=== PATIENT | male | born 1975 | race African-American/Black ===

== ENCOUNTER 2020-12-17 03:37 | Inpatient (IN) ==
[2020-12-17 05:29] LABS: ABG Base Excess 0.9 MMOL/L (-2.5-2.5); ABG HCO3 25.1 MMOL/L (20-26); ABG Oxygen Saturation 91.6 % (95-100); ABG PCO2 40.3 MM HG (35-48); ABG PO2 63.1 MM HG (80-95); ABG TCO2 23.3 MMOL/L (23-27)
[2020-12-17] MEDS ORDERED: DEXTROSE 50% 25 GM/50 ML VIAL IV PRN ×2 (05:39)
[2020-12-17] MEDS ORDERED: SODIUM BICARB INJ 100 MEQ in STERILE WATER INJ 400 ML IV PRN (06:00)
[2020-12-17] MEDS ORDERED: MAGNESIUM SULF RIDER 4 GM/100 ML PREMIX IV PRN (06:00)
[2020-12-17] MEDS ORDERED: POTASSIUM CHLORIDE RIDER 10 MEQ/100 ML PREMIX IV PRN (06:00)
[2020-12-17] MEDS ORDERED: SODIUM PHOSPHATE INJ 19.3 MMOL in SODIUM CHLORIDE 0.9% 250 ML IV PRN (06:00)
[2020-12-17] MEDS ORDERED: MAGNESIUM SULF RIDER 2 GM/50 ML PREMIX IV PRN (06:00)
[2020-12-17 06:40] LABS: Basophils % 0.1 % (0.0-0.8); Hematocrit 29.4 VOL% (42.0-52.0); Hemoglobin 9.4 GM/DL (14.0-18.0); Immature Granulocytes % 1.1 %; Immature Granulocytes Absolute 0.13 #; Lymphocytes # 0.5 10*3/uL (1.4-4.0); Mean Corpuscular Volume 90.7 FL (87-102); Mean Platelet Volume 10.2 FL (9.6-12.0); Monocytes % 3.9 % (1.7-12.7); Neutrophils % 90.9 % (38.7-73.9); Platelet Count 448 T/CUMM (130-400); Red Blood Count 3.24 MC/CUMM (3.8-5.5); Red Cell Distribution Width 13.4 % (9.3-17.3); White Blood Count 12.1 T/CUMM (4-12)
[2020-12-17 06:48] LABS: Bilirubin,Urine Negative (Negative); Blood, Urine Negative (Negative); Glucose,Urine (UA) >=500 mg/dL (Negative); Ketones,Urine 5 mg/dL (Negative); Mucus,Urine Occasional /LPF (Occasional); Nitrite,Urine Negative (Negative); Protein,Urine 100 MG/DL; RBC,Urine 1 /HPF (0-4); Squamous Epithelial Cell,Urine Occasional /HPF (0-10); Urine Appearance CLEAR (Clear); Urine Color Straw (Yellow); Urine Urobilinogen < 2.0 EU/DL (0.2-1.0)
[2020-12-17 06:53] LABS: Albumin 1.8 G/DL (3.4-5.0); Bilirubin,Total 0.7 MG/DL (0.20-1.00); Calcium 8.7 MG/DL (8.5-10.1); Osmolality,Calculated 302.5 MOS/KG (273-304); Potassium 4.2 MMOL/L (3.5-5.1); Total Protein 7.5 G/DL (6.4-8.2)
[2020-12-17 06:55] LABS: Barbiturates Screen,Urine Negative (Negative); Benzodiazepines Screen,Urine Negative (Negative); Cannabinoid Screen,Urine Negative (Negative); Opiate Screen,Urine Negative (Negative); Phencyclidine Screen,Urine Negative (Negative)
[2020-12-17 07:03] LABS: Band Neutrophils 15 % (0-10); Hypochromia Slight; Lymphocytes 8 % (20-55); Platelet Estimate Increased; Segmented Neutrophils 75 % (50-85); Total Cells Counted 100
[2020-12-17] MEDS ORDERED: LORazepam 2 MG/1 ML VIAL ONE (07:19)
[2020-12-17] MEDS ORDERED: LORazepam 2 MG/1 ML VIAL IV ONE (07:20)
[2020-12-17] MEDS: PIPERACILLIN/TAZOBACTAM 3.375 MG in SODIUM CHLORIDE 0.9% 100 ML IV SCH ×2 (08:00→18:03)
[2020-12-17] MEDS: SODIUM CHLORIDE 0.9% 1,000 ML IV SCH ×2 (08:09→09:10)
[2020-12-17] MEDS: HEPARIN 5,000 UNIT/1 ML VIAL SUBCUT SCH ×3 (08:09→21:47)
[2020-12-17] MEDS: INSULIN REGULAR DRIP 100 ML IV SCH (08:20)
[2020-12-17] MEDS ORDERED: LOSARTAN 50 MG TABLET PO SCH (09:00)
[2020-12-17 09:47] LABS: Calcium 9.3 MG/DL (8.5-10.1); Osmolality,Calculated 294.8 MOS/KG (273-304); Potassium 4.1 MMOL/L (3.5-5.1)
[2020-12-17] MEDS: DIVALPROEX 250 MG TABLET PO SCH ×2 (10:24→20:41)
[2020-12-17] MEDS: amLODIPine 10 MG TABLET PO SCH (10:24)
[2020-12-17] MEDS ORDERED: SODIUM CHLORIDE 0.9% 1,000 ML IV SCH (11:00)
[2020-12-17] MEDS: hydrALAZINE 20 MG/1 ML VIAL IV PRN ×2 (12:12→20:42)
[2020-12-17] MEDS ORDERED: SODIUM CHLOR 0.9% KCL 20 MEQ 20 MEQ/1,000 ML BAG IV SCH (14:00)
[2020-12-17 14:17] LABS: Calcium 8.7 MG/DL (8.5-10.1); Potassium 4.5 MMOL/L (3.5-5.1)
[2020-12-17 18:15] LABS: Calcium 8.6 MG/DL (8.5-10.1); Osmolality,Calculated 298.5 MOS/KG (273-304); Potassium 4.6 MMOL/L (3.5-5.1)
[2020-12-17] MEDS: SODIUM CHLOR 0.45% KCL 20 MEQ 20 MEQ/1,000 ML BAG IV SCH (18:30)
[2020-12-17] MEDS: SIMVASTATIN 10 MG TABLET PO SCH (20:41)
[2020-12-17] MEDS: ONDANSETRON 4 MG/2 ML VIAL IV PRN (20:41)
[2020-12-17] MEDS: DEXT 5% NACL 0.45% KCL 20 MEQ 20 MEQ/1,000 ML BAG IV SCH (20:41)
[2020-12-18 00:34] LABS: Calcium 8.7 MG/DL (8.5-10.1); Osmolality,Calculated 292.4 MOS/KG (273-304); Potassium 4.5 MMOL/L (3.5-5.1)
[2020-12-18 01:51] LABS: Calcium 8.8 MG/DL (8.5-10.1); Osmolality,Calculated 290.1 MOS/KG (273-304); Potassium 4.3 MMOL/L (3.5-5.1)
[2020-12-18] MEDS: SODIUM CHLOR 0.45% KCL 20 MEQ 20 MEQ/1,000 ML BAG IV SCH ×4 (02:52→11:33)
[2020-12-18] MEDS: DEXT 5% NACL 0.45% KCL 20 MEQ 20 MEQ/1,000 ML BAG IV SCH ×3 (02:53→11:32)
[2020-12-18] MEDS: SODIUM CHLORIDE 0.45% 1,000 ML IV SCH ×2 (02:53→07:14)
[2020-12-18] MEDS: INSULIN REGULAR DRIP 100 ML IV SCH ×2 (03:00→07:03)
[2020-12-18] MEDS: PIPERACILLIN/TAZOBACTAM 3.375 MG in SODIUM CHLORIDE 0.9% 100 ML IV SCH ×4 (03:01→23:37)
[2020-12-18 04:45] LABS: Basophils % 0.1 % (0.0-0.8); Hematocrit 26.5 VOL% (42.0-52.0); Hemoglobin 8.3 GM/DL (14.0-18.0); Immature Granulocytes % 1.4 %; Immature Granulocytes Absolute 0.17 #; Lymphocytes # 1.1 10*3/uL (1.4-4.0); Lymphocytes % 8.3 % (21.2-54.2); Mean Corpuscular HGB Conc 31.3 GM/DL (32-36); Mean Corpuscular Volume 92.3 FL (87-102); Mean Platelet Volume 10.2 FL (9.6-12.0); Monocytes % 8.7 % (1.7-12.7); Neutrophils % 81.5 % (38.7-73.9); Platelet Count 345 T/CUMM (130-400); Red Blood Count 2.87 MC/CUMM (3.8-5.5); Red Cell Distribution Width 13.9 % (9.3-17.3); White Blood Count 12.6 T/CUMM (4-12)
[2020-12-18 05:09] LABS: Albumin 1.4 G/DL (3.4-5.0); Bilirubin,Total 0.4 MG/DL (0.20-1.00); Calcium 8.8 MG/DL (8.5-10.1); Osmolality,Calculated 290.1 MOS/KG (273-304); Potassium 4.3 MMOL/L (3.5-5.1); Total Protein 6.6 G/DL (6.4-8.2)
[2020-12-18 05:13] LABS: Alanine Aminotransferase 13 U/L (16-61); Albumin 1.4 G/DL (3.4-5.0); Alkaline Phosphatase 73 U/L (45-117); Aspartate Amino Transferase 13 U/L (0-37); Bilirubin,Direct < 0.100 MG/DL (0.0-0.20); Bilirubin,Indirect 0.3 MG/DL (0.0-1.0); Bilirubin,Total < 0.39 MG/DL (0.20-1.00); Blood Urea Nitrogen 28 MG/DL (7-18); Calcium 8.6 MG/DL (8.5-10.1); Carbon Dioxide 27 MMOL/L (21-32); Estimated Glom Filtration Rate 28 ML/MIN; Glucose 151 MG/DL (74-106); Osmolality,Calculated 294.8 MOS/KG (273-304); Potassium 4.4 MMOL/L (3.5-5.1); Sodium 144 MMOL/L (136-145); Total Protein 6.6 G/DL (6.4-8.2)
[2020-12-18 06:34] LABS: Eosinophils 1 % (0-10); Lymphocytes 4 % (20-55); Platelet Estimate Increased; Segmented Neutrophils 91 % (50-85); Total Cells Counted 100
[2020-12-18] MEDS: HEPARIN 5,000 UNIT/1 ML VIAL SUBCUT SCH ×3 (07:05→22:50)
[2020-12-18 07:44] LABS: Calcium 8.9 MG/DL (8.5-10.1); Osmolality,Calculated 292.3 MOS/KG (273-304); Potassium 4.4 MMOL/L (3.5-5.1)
[2020-12-18] MEDS: DIVALPROEX 250 MG TABLET PO SCH ×2 (08:31→20:53)
[2020-12-18] MEDS: amLODIPine 10 MG TABLET PO SCH (08:31)
[2020-12-18] MEDS ORDERED: DEXTROSE 50% 25 GM/50 ML VIAL IV PRN (10:01)
[2020-12-18] MEDS ORDERED: GLUCAGON 1 MG VIAL IM PRN ×2 (10:01)
[2020-12-18 10:30] LABS: Basophils % 0.1 % (0.0-0.8); Hematocrit 26.5 VOL% (42.0-52.0); Hemoglobin 8.3 GM/DL (14.0-18.0); Immature Granulocytes % 1.4 %; Immature Granulocytes Absolute 0.17 #; Lymphocytes # 1.1 10*3/uL (1.4-4.0); Lymphocytes % 8.3 % (21.2-54.2); Mean Corpuscular HGB Conc 31.3 GM/DL (32-36); Mean Corpuscular Volume 92.3 FL (87-102); Mean Platelet Volume 10.2 FL (9.6-12.0); Monocytes % 8.7 % (1.7-12.7); Neutrophils % 81.5 % (38.7-73.9); Platelet Count 345 T/CUMM (130-400); Red Blood Count 2.87 MC/CUMM (3.8-5.5); Red Cell Distribution Width 13.9 % (9.3-17.3); White Blood Count 12.6 T/CUMM (4-12)
[2020-12-18] MEDS ORDERED: ALBUTEROL/IPRATROPIUM 3 ML NEB RESP TX SCH (10:30)
[2020-12-18 10:47] LABS: Eosinophils 1 % (0-10); Lymphocytes 4 % (20-55); Platelet Estimate Increased; Segmented Neutrophils 91 % (50-85); Total Cells Counted 100
[2020-12-18] MEDS: INSULIN GLARGINE 100 UNIT/ML SUBCUT SCH ×2 (11:02→20:52)
[2020-12-18] MEDS: INSULIN LISPRO 100 UNIT/ML SUBCUT SCH ×4 (11:31→23:38)
[2020-12-18] MEDS: SODIUM CHLORIDE 0.9% 1,000 ML IV SCH ×3 (11:40→23:03)
[2020-12-18 11:45] LABS: Sedimentation Rate-Westergren 125 MM/HR (0-15)
[2020-12-18 11:47] LABS: % Iron Saturation 9.6 % (18-50); Ferritin 422.9 ng/mL (26-388)
[2020-12-18 12:15] LABS: Folate 7.98 NG/ML (5.38-24.0); Vitamin B12 1119 PG/ML (211-911)
[2020-12-18] MEDS: ALBUTEROL/IPRATROPIUM 3 ML NEB RESP TX SCH (12:37)
[2020-12-18] MEDS ORDERED: ETOMIDATE 20 MG/10 ML VIAL IV ONE ×3 (13:23→13:35)
[2020-12-18] MEDS ORDERED: ROCURONIUM 100 MG/10 ML VIAL IV ONE ×3 (13:24→13:36)
[2020-12-18] MEDS ORDERED: ETOMIDATE 20 MG/10 ML VIAL IV STA (13:30)
[2020-12-18] MEDS ORDERED: ROCURONIUM 100 MG/10 ML VIAL IV STA (13:31)
[2020-12-18] MEDS: AZITHROMYCIN INJ 500 MG in SODIUM CHLORIDE 0.9% 250 ML IV SCH (14:44)
[2020-12-18] MEDS: ACETYLCYSTEINE 20% 800 MG/4 ML VIAL RESP TX SCH (16:07)
[2020-12-18] MEDS: ALBUTEROL 2.5 MG/3 ML NEB RESP TX PRN (16:07)
[2020-12-18 17:28] LABS: ABG Base Excess -3.8 MMOL/L (-2.5-2.5); ABG HCO3 21.2 MMOL/L (20-26); ABG Oxygen Saturation 97.4 % (95-100); ABG PCO2 39.9 MM HG (35-48); ABG PH 7.341 (7.35-7.45); ABG PO2 99.7 MM HG (80-95); ABG TCO2 20.2 MMOL/L (23-27)
[2020-12-18] MEDS: VANCOMYCIN INJ 1,250 MG in SODIUM CHLORIDE 0.9% 250 ML IV SCH (18:23)
[2020-12-18] MEDS: SIMVASTATIN 10 MG TABLET PO SCH (20:53)
[2020-12-19] MEDS: ALBUTEROL/IPRATROPIUM 3 ML NEB RESP TX SCH ×5 (00:10→19:00)
[2020-12-19] MEDS: ACETYLCYSTEINE 20% 800 MG/4 ML VIAL RESP TX SCH ×4 (00:10→22:12)
[2020-12-19 03:40] LABS: Basophils % 0.2 % (0.0-0.8); Eosinophils % 0.2 % (0.00-10.9); Hemoglobin 7.4 GM/DL (14.0-18.0); Immature Granulocytes % 0.6 %; Immature Granulocytes Absolute 0.05 #; Lymphocytes % 11.9 % (21.2-54.2); Mean Corpuscular HGB Conc 30.8 GM/DL (32-36); Mean Corpuscular Volume 93.8 FL (87-102); Mean Platelet Volume 10.2 FL (9.6-12.0); Monocytes % 6.6 % (1.7-12.7); NRBC # 0.02 10*3/uL; Neutrophils % 80.5 % (38.7-73.9); Platelet Count 270 T/CUMM (130-400); Red Blood Count 2.56 MC/CUMM (3.8-5.5); Red Cell Distribution Width 14.5 % (9.3-17.3); White Blood Count 8.7 T/CUMM (4-12)
[2020-12-19 03:51] LABS: ABG Base Excess -1.4 MMOL/L (-2.5-2.5); ABG HCO3 22.9 MMOL/L (20-26); ABG Oxygen Saturation 98.1 % (95-100); ABG PCO2 36.3 MM HG (35-48); ABG PH 7.418 (7.35-7.45); ABG PO2 114.5 MM HG (80-95)
[2020-12-19 03:57] LABS: Alanine Aminotransferase 16 U/L (16-61); Albumin 1.2 G/DL (3.4-5.0); Alkaline Phosphatase 91 U/L (45-117); Aspartate Amino Transferase 19 U/L (0-37); Bilirubin,Total < 0.39 MG/DL (0.20-1.00); Blood Urea Nitrogen 40 MG/DL (7-18); Calcium 8.3 MG/DL (8.5-10.1); Carbon Dioxide 25 MMOL/L (21-32); Estimated Glom Filtration Rate 25 ML/MIN; Glucose 241 MG/DL (74-106); Osmolality,Calculated 305.7 MOS/KG (273-304); Potassium 4.6 MMOL/L (3.5-5.1); Sodium 145 MMOL/L (136-145); Total Protein 6.4 G/DL (6.4-8.2)
[2020-12-19 04:04] LABS: Band Neutrophils 2 % (0-10); Lymphocytes 12 % (20-55); Platelet Estimate Normal; Segmented Neutrophils 82 % (50-85); Total Cells Counted 100
[2020-12-19 04:05] LABS: Microcytosis Slight; Polychromasia Slight
[2020-12-19 04:06] LABS: Hypochromia Slight; Ovalocytes Slight
[2020-12-19] MEDS: HEPARIN 5,000 UNIT/1 ML VIAL SUBCUT SCH ×3 (05:47→22:35)
[2020-12-19] MEDS: SODIUM CHLORIDE 0.9% 1,000 ML IV SCH ×4 (06:27→22:35)
[2020-12-19] MEDS: PIPERACILLIN/TAZOBACTAM 3.375 MG in SODIUM CHLORIDE 0.9% 100 ML IV SCH ×2 (06:30→16:13)
[2020-12-19] MEDS ORDERED: INSULIN LISPRO 100 UNIT/ML SUBCUT SCH (07:00)
[2020-12-19] MEDS: INSULIN GLARGINE 100 UNIT/ML SUBCUT SCH ×2 (08:30→20:59)
[2020-12-19] MEDS: INSULIN LISPRO 100 UNIT/ML SUBCUT SCH ×4 (08:30→20:56)
[2020-12-19] MEDS: DIVALPROEX 250 MG TABLET PO SCH ×2 (08:30→20:58)
[2020-12-19] MEDS: amLODIPine 10 MG TABLET PO SCH (08:30)
[2020-12-19 11:42] LABS: % Iron Saturation 14.1 % (18-50)
[2020-12-19] MEDS: AZITHROMYCIN INJ 500 MG in SODIUM CHLORIDE 0.9% 250 ML IV SCH (15:33)
[2020-12-19] MEDS: ONDANSETRON 4 MG/2 ML VIAL IV PRN (20:58)
[2020-12-19] MEDS: SIMVASTATIN 10 MG TABLET PO SCH (20:59)
[2020-12-20] MEDS: PIPERACILLIN/TAZOBACTAM 3.375 MG in SODIUM CHLORIDE 0.9% 100 ML IV SCH ×3 (00:05→16:22)
[2020-12-20] MEDS: INSULIN LISPRO 100 UNIT/ML SUBCUT SCH ×6 (00:28→20:31)
[2020-12-20] MEDS: ALBUTEROL/IPRATROPIUM 3 ML NEB RESP TX SCH ×4 (01:00→19:00)
[2020-12-20 03:40] LABS: ABG Base Excess -1.7 MMOL/L (-2.5-2.5); ABG HCO3 23.2 MMOL/L (20-26); ABG PCO2 39.6 MM HG (35-48); ABG PH 7.385 (7.35-7.45); ABG PO2 111.2 MM HG (80-95); ABG TCO2 24.4 MMOL/L (23-27)
[2020-12-20] MEDS: DOCUSATE SODIUM 100 MG CAPSULE PO PRN ×2 (03:48→05:05)
[2020-12-20] MEDS: VANCOMYCIN INJ 1,250 MG in SODIUM CHLORIDE 0.9% 250 ML IV SCH (04:10)
[2020-12-20 04:18] LABS: Alanine Aminotransferase 21 U/L (16-61); Alkaline Phosphatase 71 U/L (45-117); Aspartate Amino Transferase 37 U/L (0-37); Bilirubin,Direct < 0.050 MG/DL (0.0-0.20); Bilirubin,Indirect 0.3 MG/DL (0.0-1.0); Bilirubin,Total < 0.39 MG/DL (0.20-1.00); Blood Urea Nitrogen 35 MG/DL (7-18); Calcium 8.2 MG/DL (8.5-10.1); Carbon Dioxide 25 MMOL/L (21-32); Estimated Glom Filtration Rate 30 ML/MIN; Glucose 121 MG/DL (74-106); Osmolality,Calculated 296.7 MOS/KG (273-304); Sodium 145 MMOL/L (136-145); Total Protein 6.1 G/DL (6.4-8.2)
[2020-12-20 04:38] LABS: ABG Base Excess -3.3 MMOL/L (-2.5-2.5); ABG HCO3 22.8 MMOL/L (20-26); ABG Oxygen Saturation 92.4 % (95-100); ABG PCO2 46.2 MM HG (35-48); ABG PH 7.311 (7.35-7.45); ABG PO2 67.6 MM HG (80-95); ABG TCO2 24.2 MMOL/L (23-27)
[2020-12-20] MEDS: SODIUM CHLORIDE 0.9% 1,000 ML IV SCH ×3 (05:46→20:59)
[2020-12-20] MEDS: HEPARIN 5,000 UNIT/1 ML VIAL SUBCUT SCH ×3 (05:51→22:07)
[2020-12-20] MEDS: ACETYLCYSTEINE 20% 800 MG/4 ML VIAL RESP TX SCH ×3 (07:28→23:34)
[2020-12-20] MEDS: PANTOPRAZOLE 40 MG VIAL IV SCH (09:01)
[2020-12-20] MEDS: INSULIN GLARGINE 100 UNIT/ML SUBCUT SCH ×2 (09:02→20:59)
[2020-12-20] MEDS: DIVALPROEX 250 MG TABLET PO SCH ×2 (09:03→20:58)
[2020-12-20] MEDS: amLODIPine 10 MG TABLET PO SCH (09:03)
[2020-12-20 09:51] LABS: Hemoglobin A1 (Alkaline) 98.1 % (96.5-98.5); Hemoglobin A2 (Alkaline) 1.9 % (1.5-3.5)
[2020-12-20] MEDS: AZITHROMYCIN INJ 500 MG in SODIUM CHLORIDE 0.9% 250 ML IV SCH (16:22)
[2020-12-20] MEDS: ALBUTEROL 2.5 MG/3 ML NEB RESP TX PRN (16:30)
[2020-12-20] MEDS: SIMVASTATIN 10 MG TABLET PO SCH (20:59)
[2020-12-21] MEDS: PIPERACILLIN/TAZOBACTAM 3.375 MG in SODIUM CHLORIDE 0.9% 100 ML IV SCH ×3 (00:14→22:41)
[2020-12-21] MEDS: INSULIN LISPRO 100 UNIT/ML SUBCUT SCH ×6 (00:34→21:47)
[2020-12-21] MEDS: ALBUTEROL/IPRATROPIUM 3 ML NEB RESP TX SCH ×4 (01:00→18:18)
[2020-12-21] MEDS ORDERED: fentaNYL 100 MCG/2 ML VIAL IV ONE (03:19)
[2020-12-21 03:43] LABS: ABG Base Excess -4.6 MMOL/L (-2.5-2.5); ABG HCO3 20.5 MMOL/L (20-26); ABG Oxygen Saturation 91.7 % (95-100); ABG PCO2 36.4 MM HG (35-48); ABG PH 7.357 (7.35-7.45); ABG PO2 65.1 MM HG (80-95); ABG TCO2 19.4 MMOL/L (23-27)
[2020-12-21 04:58] LABS: Basophils % 0.2 % (0.0-0.8); Eosinophils % 0.5 % (0.00-10.9); Hematocrit 19.7 VOL% (42.0-52.0); Immature Granulocytes % 5.5 %; Immature Granulocytes Absolute 0.31 #; Lymphocytes # 0.8 10*3/uL (1.4-4.0); Mean Corpuscular HGB Conc 31.5 GM/DL (32-36); Mean Corpuscular Volume 94.7 FL (87-102); Monocytes % 5.5 % (1.7-12.7); NRBC # 0.03 10*3/uL; Neutrophils % 73.3 % (38.7-73.9); Platelet Count 236 T/CUMM (130-400); Red Blood Count 2.08 MC/CUMM (3.8-5.5); Red Cell Distribution Width 14.8 % (9.3-17.3); White Blood Count 5.6 T/CUMM (4-12)
[2020-12-21 05:00] LABS: Hemoglobin 6.2 GM/DL (14.0-18.0)
[2020-12-21 05:07] LABS: Calcium 7.7 MG/DL (8.5-10.1); Osmolality,Calculated 310.1 MOS/KG (273-304); Potassium 3.6 MMOL/L (3.5-5.1)
[2020-12-21 05:29] LABS: Atypical Lymphocytes Few; Band Neutrophils 6 % (0-10); Hypochromia 1+; Lymphocytes 15 % (20-55); Metamyelocytes 1 %; Myelocytes 2 %; Nucleated Red Blood Cells 1 (0-5); Segmented Neutrophils 66 % (50-85); Total Cells Counted 100
[2020-12-21 05:30] LABS: Microcytosis 1+
[2020-12-21] MEDS: SODIUM CHLORIDE 0.9% 1,000 ML IV SCH ×3 (06:28→20:33)
[2020-12-21] MEDS: ACETYLCYSTEINE 20% 800 MG/4 ML VIAL RESP TX SCH ×3 (07:53→23:00)
[2020-12-21] MEDS: INSULIN GLARGINE 100 UNIT/ML SUBCUT SCH ×2 (08:13→21:47)
[2020-12-21] MEDS: PANTOPRAZOLE 40 MG VIAL IV SCH (08:14)
[2020-12-21] MEDS: fentaNYL INJ 1,250 MCG in SODIUM CHLORIDE 0.9% 225 ML IV PRN (08:30)
[2020-12-21] MEDS ORDERED: ROCURONIUM 50 MG/5 ML VIAL IV ONE ×2 (09:57→11:52)
[2020-12-21] MEDS ORDERED: SEVOFLURANE 1 UNIT/15 MINUTE INH ONE (09:57)
[2020-12-21] MEDS ORDERED: LIDOCAINE 2% 5 ML VIAL ONE (09:57)
[2020-12-21] MEDS ORDERED: propofoL 200 MG/20 ML VIAL IV ONE (09:57)
[2020-12-21] MEDS ORDERED: fentaNYL 250 MCG/5 ML VIAL ONE (09:58)
[2020-12-21] MEDS ORDERED: MIDAZOLAM 2 MG/2 ML VIAL ONE ×4 (09:58→11:53)
[2020-12-21] MEDS ORDERED: fentaNYL 100 MCG/2 ML VIAL ONE ×4 (10:21→11:53)
[2020-12-21] MEDS ORDERED: SODIUM CHLORIDE 0.9% 250 ML IV ONE (12:05)
[2020-12-21] MEDS: DIVALPROEX 250 MG TABLET PO SCH ×2 (13:47→21:47)
[2020-12-21 14:41] LABS: Hematocrit 29.3 VOL% (42.0-52.0); Hemoglobin 8.8 GM/DL (14.0-18.0)
[2020-12-21] MEDS: AZITHROMYCIN INJ 500 MG in SODIUM CHLORIDE 0.9% 250 ML IV SCH (14:53)
[2020-12-21] MEDS: VANCOMYCIN INJ 1,250 MG in SODIUM CHLORIDE 0.9% 250 ML IV SCH (16:49)
[2020-12-21] MEDS ORDERED: LORazepam 2 MG/1 ML VIAL ONE (19:30)
[2020-12-21] MEDS ORDERED: LORazepam 2 MG/1 ML VIAL IV ONE (21:43)
[2020-12-21] MEDS: SIMVASTATIN 10 MG TABLET PO SCH (21:47)
[2020-12-22] MEDS: INSULIN LISPRO 100 UNIT/ML SUBCUT SCH ×6 (00:19→21:07)
[2020-12-22] MEDS: ALBUTEROL/IPRATROPIUM 3 ML NEB RESP TX SCH ×4 (01:00→19:00)
[2020-12-22 03:58] LABS: ABG Base Excess -6.3 MMOL/L (-2.5-2.5); ABG HCO3 19.2 MMOL/L (20-26); ABG Oxygen Saturation 97.7 % (95-100); ABG PCO2 44.9 MM HG (35-48); ABG PH 7.266 (7.35-7.45); ABG TCO2 19.2 MMOL/L (23-27)
[2020-12-22 05:02] LABS: Basophils % 0.4 % (0.0-0.8); Eosinophils # 0.1 10*3/uL (0.0-0.87); Eosinophils % 1.1 % (0.00-10.9); Hematocrit 25.9 VOL% (42.0-52.0); Immature Granulocytes % 6.2 %; Immature Granulocytes Absolute 0.62 #; Lymphocytes % 9.6 % (21.2-54.2); Mean Corpuscular HGB Conc 30.9 GM/DL (32-36); Mean Corpuscular Volume 93.2 FL (87-102); Mean Platelet Volume 10.9 FL (9.6-12.0); Monocytes % 6.1 % (1.7-12.7); NRBC # 0.11 10*3/uL; Neutrophils % 76.6 % (38.7-73.9); Platelet Count 251 T/CUMM (130-400); Red Blood Count 2.78 MC/CUMM (3.8-5.5); Red Cell Distribution Width 16.7 % (9.3-17.3)
[2020-12-22] MEDS: SODIUM CHLORIDE 0.9% 1,000 ML IV SCH (05:04)
[2020-12-22 05:26] LABS: Band Neutrophils 11 % (0-10); Hypochromia Slight; Lymphocytes 3 % (20-55); Metamyelocytes 2 %; Microcytosis 1+; Nucleated Red Blood Cells 2 (0-5); Segmented Neutrophils 75 % (50-85); Total Cells Counted 100
[2020-12-22 05:27] LABS: Ovalocytes Slight
[2020-12-22 05:28] LABS: Calcium 7.1 MG/DL (8.5-10.1); Osmolality,Calculated 304.9 MOS/KG (273-304); Potassium 3.8 MMOL/L (3.5-5.1)
[2020-12-22] MEDS: PIPERACILLIN/TAZOBACTAM 3.375 MG in SODIUM CHLORIDE 0.9% 100 ML IV SCH (07:31)
[2020-12-22] MEDS: ACETYLCYSTEINE 20% 800 MG/4 ML VIAL RESP TX SCH ×3 (07:58→23:24)
[2020-12-22] MEDS: DIVALPROEX 250 MG TABLET PO SCH (08:29)
[2020-12-22] MEDS: PANTOPRAZOLE 40 MG VIAL IV SCH (08:29)
[2020-12-22] MEDS: INSULIN GLARGINE 100 UNIT/ML SUBCUT SCH ×2 (08:29→21:07)
[2020-12-22] MEDS: ALBUMIN 5% 25 GM/500 ML VIAL IV SCH ×2 (09:41→16:58)
[2020-12-22] MEDS: cefTRIAXone 1,000 MG in SODIUM CHLORIDE 0.9% 100 ML IV SCH (09:42)
[2020-12-22] MEDS: HEPARIN 5,000 UNIT/1 ML VIAL SUBCUT SCH ×2 (15:01→22:30)
[2020-12-22] MEDS: AZITHROMYCIN INJ 500 MG in SODIUM CHLORIDE 0.9% 250 ML IV SCH (15:01)
[2020-12-22] MEDS: FUROSEMIDE 40 MG/4 ML VIAL IV SCH (16:57)
[2020-12-22] MEDS: LEVOFLOXACIN INJ 750 MG/150 ML PREMIX IV SCH (17:10)
[2020-12-22] MEDS: fentaNYL INJ 1,250 MCG in SODIUM CHLORIDE 0.9% 225 ML IV PRN (18:13)
[2020-12-22] MEDS: VALPROIC ACID INJ 500 MG in SODIUM CHLORIDE 0.9% 100 ML IV SCH (18:20)
[2020-12-22] MEDS: SIMVASTATIN 10 MG TABLET PO SCH (21:07)
[2020-12-23] MEDS: INSULIN LISPRO 100 UNIT/ML SUBCUT SCH ×7 (00:07→23:13)
[2020-12-23] MEDS: VALPROIC ACID INJ 500 MG in SODIUM CHLORIDE 0.9% 100 ML IV SCH ×3 (00:08→16:14)
[2020-12-23] MEDS: ALBUMIN 5% 25 GM/500 ML VIAL IV SCH ×3 (00:08→16:12)
[2020-12-23] MEDS: ALBUTEROL/IPRATROPIUM 3 ML NEB RESP TX SCH ×4 (00:20→19:02)
[2020-12-23 04:01] LABS: ABG Base Excess -5.4 MMOL/L (-2.5-2.5); ABG HCO3 20.2 MMOL/L (20-26); ABG PH 7.322 (7.35-7.45); ABG PO2 172.5 MM HG (80-95); ABG TCO2 21.5 MMOL/L (23-27)
[2020-12-23 05:34] LABS: Basophils # 0.1 10*3/uL (0.0-0.2); Basophils % 0.5 % (0.0-0.8); Eosinophils # 0.1 10*3/uL (0.0-0.87); Hematocrit 23.7 VOL% (42.0-52.0); Hemoglobin 7.4 GM/DL (14.0-18.0); Immature Granulocytes % 12.1 %; Immature Granulocytes Absolute 1.42 #; Lymphocytes # 1.4 10*3/uL (1.4-4.0); Lymphocytes % 11.8 % (21.2-54.2); Mean Corpuscular HGB Conc 31.2 GM/DL (32-36); Mean Corpuscular Volume 93.3 FL (87-102); Mean Platelet Volume 10.5 FL (9.6-12.0); Neutrophils % 68.6 % (38.7-73.9); Platelet Count 260 T/CUMM (130-400); Red Blood Count 2.54 MC/CUMM (3.8-5.5); Red Cell Distribution Width 17.5 % (9.3-17.3); White Blood Count 11.7 T/CUMM (4-12)
[2020-12-23 05:47] LABS: Calcium 8.1 MG/DL (8.5-10.1); Osmolality,Calculated 311.7 MOS/KG (273-304); Potassium 3.6 MMOL/L (3.5-5.1)
[2020-12-23 06:05] LABS: Band Neutrophils 5 % (0-10); Eosinophils 1 % (0-10); Hypochromia 2+; Lymphocytes 20 % (20-55); Metamyelocytes 3 %; Myelocytes 1 %; Nucleated Red Blood Cells 2 (0-5); Platelet Estimate Normal; Segmented Neutrophils 63 % (50-85); Target Cells Few; Total Cells Counted 100
[2020-12-23 06:06] LABS: Microcytosis 2+
[2020-12-23] MEDS: HEPARIN 5,000 UNIT/1 ML VIAL SUBCUT SCH ×3 (06:17→22:17)
[2020-12-23] MEDS: ACETYLCYSTEINE 20% 800 MG/4 ML VIAL RESP TX SCH ×3 (08:27→23:00)
[2020-12-23] MEDS: INSULIN GLARGINE 100 UNIT/ML SUBCUT SCH ×2 (09:18→20:52)
[2020-12-23] MEDS: PANTOPRAZOLE 40 MG VIAL IV SCH (09:18)
[2020-12-23] MEDS: cefTRIAXone 1,000 MG in SODIUM CHLORIDE 0.9% 100 ML IV SCH (09:18)
[2020-12-23] MEDS: FUROSEMIDE 40 MG/4 ML VIAL IV SCH ×2 (09:50→16:12)
[2020-12-23] MEDS: DEXTROSE 50% 25 GM/50 ML VIAL IV PRN (19:30)
[2020-12-23] MEDS: SIMVASTATIN 10 MG TABLET PO SCH (20:53)
[2020-12-24] MEDS: ALBUMIN 5% 25 GM/500 ML VIAL IV SCH ×3 (00:30→15:42)
[2020-12-24] MEDS: VALPROIC ACID INJ 500 MG in SODIUM CHLORIDE 0.9% 100 ML IV SCH ×3 (01:00→16:08)
[2020-12-24] MEDS: ALBUTEROL/IPRATROPIUM 3 ML NEB RESP TX SCH ×4 (01:30→23:13)
[2020-12-24] MEDS: INSULIN LISPRO 100 UNIT/ML SUBCUT SCH ×5 (04:11→20:01)
[2020-12-24] MEDS: DEXTROSE 50% 25 GM/50 ML VIAL IV PRN (04:15)
[2020-12-24 04:33] LABS: Basophils % 0.2 % (0.0-0.8); Eosinophils # 0.3 10*3/uL (0.0-0.87); Hematocrit 23.7 VOL% (42.0-52.0); Hemoglobin 7.3 GM/DL (14.0-18.0); Immature Granulocytes % 10.2 %; Immature Granulocytes Absolute 1.35 #; Lymphocytes # 1.7 10*3/uL (1.4-4.0); Lymphocytes % 12.7 % (21.2-54.2); Mean Corpuscular HGB Conc 30.8 GM/DL (32-36); Mean Corpuscular Volume 92.6 FL (87-102); Mean Platelet Volume 10.5 FL (9.6-12.0); Monocytes % 3.2 % (1.7-12.7); NRBC # 0.09 10*3/uL; Neutrophils % 71.7 % (38.7-73.9); Platelet Count 276 T/CUMM (130-400); Red Blood Count 2.56 MC/CUMM (3.8-5.5); Red Cell Distribution Width 17.9 % (9.3-17.3); White Blood Count 13.3 T/CUMM (4-12)
[2020-12-24 04:35] LABS: ABG Base Excess -2.8 MMOL/L (-2.5-2.5); ABG Oxygen Saturation 96.9 % (95-100); ABG PCO2 44.8 MM HG (35-48); ABG PH 7.328 (7.35-7.45); ABG PO2 93.6 MM HG (80-95); ABG TCO2 24.4 MMOL/L (23-27)
[2020-12-24 04:50] LABS: Calcium 8.3 MG/DL (8.5-10.1); Osmolality,Calculated 313.3 MOS/KG (273-304); Potassium 3.6 MMOL/L (3.5-5.1)
[2020-12-24 05:02] LABS: Band Neutrophils 7 % (0-10); Eosinophils 2 % (0-10); Hypochromia 1+; Lymphocytes 17 % (20-55); Platelet Estimate Normal; Segmented Neutrophils 69 % (50-85); Total Cells Counted 100
[2020-12-24] MEDS: HEPARIN 5,000 UNIT/1 ML VIAL SUBCUT SCH ×3 (05:54→22:32)
[2020-12-24] MEDS: INSULIN GLARGINE 100 UNIT/ML SUBCUT SCH (09:35)
[2020-12-24] MEDS: DEXTROSE 5% 1,000 ML IV SCH (10:06)
[2020-12-24] MEDS: PANTOPRAZOLE 40 MG VIAL IV SCH (10:07)
[2020-12-24] MEDS: ACETYLCYSTEINE 20% 800 MG/4 ML VIAL RESP TX SCH (10:22)
[2020-12-24] MEDS: FUROSEMIDE 40 MG/4 ML VIAL IV SCH (10:22)
[2020-12-24] MEDS: cefTRIAXone 1,000 MG in SODIUM CHLORIDE 0.9% 100 ML IV SCH (11:16)
[2020-12-24] MEDS: ACETAMINOPHEN 325 MG TABLET PO PRN (12:12)
[2020-12-24] MEDS: LEVOFLOXACIN INJ 750 MG/150 ML PREMIX IV SCH (17:21)
[2020-12-24] MEDS: hydrALAZINE 20 MG/1 ML VIAL IV PRN (19:59)
[2020-12-24] MEDS: SIMVASTATIN 10 MG TABLET PO SCH (20:00)
[2020-12-25] MEDS: ALBUTEROL/IPRATROPIUM 3 ML NEB RESP TX SCH ×4 (01:00→19:00)
[2020-12-25] MEDS: INSULIN LISPRO 100 UNIT/ML SUBCUT SCH ×5 (01:30→17:26)
[2020-12-25] MEDS: VALPROIC ACID INJ 500 MG in SODIUM CHLORIDE 0.9% 100 ML IV SCH ×3 (01:30→17:26)
[2020-12-25 04:02] LABS: ABG Base Excess -3.3 MMOL/L (-2.5-2.5); ABG HCO3 21.6 MMOL/L (20-26); ABG Oxygen Saturation 96.1 % (95-100); ABG PH 7.408 (7.35-7.45); ABG PO2 77.3 MM HG (80-95); ABG TCO2 19.6 MMOL/L (23-27)
[2020-12-25 04:51] LABS: Basophils % 0.3 % (0.0-0.8); Eosinophils # 0.2 10*3/uL (0.0-0.87); Hematocrit 23.1 VOL% (42.0-52.0); Hemoglobin 7.6 GM/DL (14.0-18.0); Immature Granulocytes % 11.4 %; Lymphocytes # 1.5 10*3/uL (1.4-4.0); Lymphocytes % 9.4 % (21.2-54.2); Mean Corpuscular HGB Conc 32.9 GM/DL (32-36); Mean Corpuscular Volume 91.7 FL (87-102); Monocytes % 3.1 % (1.7-12.7); NRBC # 0.06 10*3/uL; Neutrophils % 74.8 % (38.7-73.9); Platelet Count 263 T/CUMM (130-400); Red Blood Count 2.52 MC/CUMM (3.8-5.5); Red Cell Distribution Width 17.6 % (9.3-17.3); White Blood Count 15.8 T/CUMM (4-12)
[2020-12-25 05:05] LABS: Calcium 7.8 MG/DL (8.5-10.1); Potassium 3.4 MMOL/L (3.5-5.1)
[2020-12-25 05:15] LABS: Band Neutrophils 8 % (0-10); Lymphocytes 6 % (20-55); Metamyelocytes 1 %; Myelocytes 2 %; Segmented Neutrophils 73 % (50-85); Total Cells Counted 100
[2020-12-25 05:16] LABS: Hypochromia 1+; Microcytosis 1+; Platelet Estimate Normal; Tear Drop Cells Slight
[2020-12-25] MEDS: HEPARIN 5,000 UNIT/1 ML VIAL SUBCUT SCH ×3 (06:25→21:39)
[2020-12-25] MEDS: DEXTROSE 5% 1,000 ML IV SCH (06:26)
[2020-12-25] MEDS: PANTOPRAZOLE 40 MG VIAL IV SCH (07:44)
[2020-12-25] MEDS: cefTRIAXone 1,000 MG in SODIUM CHLORIDE 0.9% 100 ML IV SCH (09:07)
[2020-12-25] MEDS: SODIUM CHLORIDE 0.45% 1,000 ML IV SCH (10:06)
[2020-12-25] MEDS: ALPRAZolam 0.5 MG TABLET PO SCH ×2 (10:06→17:27)
[2020-12-25] MEDS: POTASSIUM BICARB EFFERVESCENT 20 MEQ TAB.EFF PER TUBE PRN ×3 (10:06→14:22)
[2020-12-25] MEDS: metroNIDAZOLE INJ 500 MG/100 ML PREMIX IV SCH ×3 (11:03→21:39)
[2020-12-25] MEDS ORDERED: cefTRIAXone 1,000 MG in SODIUM CHLORIDE 0.9% 100 ML IV ONE (12:00)
[2020-12-25] MEDS: cefTRIAXone 2,000 MG in SODIUM CHLORIDE 0.9% 100 ML IV SCH (12:07)
[2020-12-25 17:00] LABS: Calcium 7.9 MG/DL (8.5-10.1); Potassium 3.9 MMOL/L (3.5-5.1)
[2020-12-25] MEDS: FERROUS SULFATE 300 MG/5 ML UDCUP PO SCH (20:56)
[2020-12-25] MEDS: SIMVASTATIN 10 MG TABLET PO SCH (20:56)
[2020-12-26] MEDS: VALPROIC ACID INJ 500 MG in SODIUM CHLORIDE 0.9% 100 ML IV SCH ×3 (00:23→17:07)
[2020-12-26] MEDS: INSULIN LISPRO 100 UNIT/ML SUBCUT SCH ×5 (00:23→23:57)
[2020-12-26] MEDS: ALBUTEROL/IPRATROPIUM 3 ML NEB RESP TX SCH ×4 (01:10→19:52)
[2020-12-26] MEDS: ALPRAZolam 0.5 MG TABLET PO SCH ×3 (02:52→17:20)
[2020-12-26] MEDS: SODIUM CHLORIDE 0.45% 1,000 ML IV SCH ×2 (02:53→13:59)
[2020-12-26 04:16] LABS: ABG Base Excess -1.7 MMOL/L (-2.5-2.5); ABG HCO3 22.9 MMOL/L (20-26); ABG Oxygen Saturation 95.2 % (95-100); ABG PCO2 34.3 MM HG (35-48); ABG PH 7.423 (7.35-7.45); ABG PO2 75.5 MM HG (80-95); ABG TCO2 21.2 MMOL/L (23-27)
[2020-12-26] MEDS: metroNIDAZOLE INJ 500 MG/100 ML PREMIX IV SCH ×4 (04:46→21:35)
[2020-12-26 05:01] LABS: Basophils % 0.2 % (0.0-0.8); Eosinophils # 0.1 10*3/uL (0.0-0.87); Eosinophils % 0.7 % (0.00-10.9); Hematocrit 22.2 VOL% (42.0-52.0); Hemoglobin 7.3 GM/DL (14.0-18.0); Immature Granulocytes % 13.7 %; Immature Granulocytes Absolute 2.33 #; Lymphocytes # 1.8 10*3/uL (1.4-4.0); Lymphocytes % 10.3 % (21.2-54.2); Mean Corpuscular HGB Conc 32.9 GM/DL (32-36); Mean Corpuscular Volume 89.9 FL (87-102); Mean Platelet Volume 10.9 FL (9.6-12.0); Monocytes % 3.7 % (1.7-12.7); NRBC # 0.07 10*3/uL; Neutrophils % 71.4 % (38.7-73.9); Platelet Count 251 T/CUMM (130-400); Red Blood Count 2.47 MC/CUMM (3.8-5.5); Red Cell Distribution Width 17.5 % (9.3-17.3)
[2020-12-26 05:14] LABS: Calcium 8.2 MG/DL (8.5-10.1); Osmolality,Calculated 311.1 MOS/KG (273-304); Potassium 3.6 MMOL/L (3.5-5.1)
[2020-12-26 06:20] LABS: Band Neutrophils 4 % (0-10); Eosinophils 1 % (0-10); Hypochromia 1+; Lymphocytes 3 % (20-55); Metamyelocytes 2 %; Microcytosis 1+; Myelocytes 2 %; Nucleated Red Blood Cells 1 (0-5); Segmented Neutrophils 82 % (50-85); Tear Drop Cells Few; Total Cells Counted 100
[2020-12-26] MEDS: HEPARIN 5,000 UNIT/1 ML VIAL SUBCUT SCH ×3 (06:30→21:35)
[2020-12-26] MEDS: PANTOPRAZOLE 40 MG VIAL IV SCH (08:06)
[2020-12-26] MEDS: POTASSIUM BICARB EFFERVESCENT 20 MEQ TAB.EFF PER TUBE PRN ×2 (08:07→10:20)
[2020-12-26] MEDS: FERROUS SULFATE 300 MG/5 ML UDCUP PO SCH (08:07)
[2020-12-26] MEDS: cefTRIAXone 2,000 MG in SODIUM CHLORIDE 0.9% 100 ML IV SCH (09:16)
[2020-12-26] MEDS ORDERED: SODIUM CHLORIDE 0.9% 1,000 ML IV PRN (12:08)
[2020-12-26] MEDS: methylPREDNISolone SOD SUC 40 MG/1 ML VIAL IV SCH ×2 (12:21→21:34)
[2020-12-26 17:09] LABS: Hematocrit 26.4 VOL% (42.0-52.0); Hemoglobin 8.6 GM/DL (14.0-18.0)
[2020-12-26] MEDS: SIMVASTATIN 10 MG TABLET PO SCH (21:57)
[2020-12-26] MEDS: ACETAMINOPHEN 325 MG TABLET PO PRN (23:57)
[2020-12-27] MEDS: VALPROIC ACID INJ 500 MG in SODIUM CHLORIDE 0.9% 100 ML IV SCH ×3 (00:08→16:28)
[2020-12-27] MEDS: SODIUM CHLORIDE 0.45% 1,000 ML IV SCH ×2 (00:10→07:28)
[2020-12-27] MEDS: ALPRAZolam 0.5 MG TABLET PO SCH ×3 (01:19→17:46)
[2020-12-27] MEDS: ALBUTEROL/IPRATROPIUM 3 ML NEB RESP TX SCH ×4 (01:20→20:15)
[2020-12-27] MEDS: HYDROmorphone 2 MG/1 ML VIAL IV PRN (02:19)
[2020-12-27] MEDS: fentaNYL INJ 1,250 MCG in SODIUM CHLORIDE 0.9% 225 ML IV PRN (02:25)
[2020-12-27 03:39] LABS: Basophils % 0.2 % (0.0-0.8); Eosinophils % 0.1 % (0.00-10.9); Hematocrit 25.4 VOL% (42.0-52.0); Immature Granulocytes % 12.4 %; Immature Granulocytes Absolute 2.06 #; Lymphocytes # 1.3 10*3/uL (1.4-4.0); Lymphocytes % 7.9 % (21.2-54.2); Mean Corpuscular HGB Conc 31.5 GM/DL (32-36); Mean Corpuscular Volume 93.4 FL (87-102); Mean Platelet Volume 10.8 FL (9.6-12.0); Monocytes % 3.4 % (1.7-12.7); NRBC # 0.08 10*3/uL; Platelet Count 232 T/CUMM (130-400); Red Blood Count 2.72 MC/CUMM (3.8-5.5); Red Cell Distribution Width 17.3 % (9.3-17.3); White Blood Count 16.6 T/CUMM (4-12)
[2020-12-27 03:50] LABS: Calcium 7.8 MG/DL (8.5-10.1); Osmolality,Calculated 312.7 MOS/KG (273-304); Potassium 4.8 MMOL/L (3.5-5.1)
[2020-12-27 04:07] LABS: Folate 9.16 NG/ML (5.38-24.0); Vitamin B12 837 PG/ML (211-911)
[2020-12-27] MEDS: methylPREDNISolone SOD SUC 40 MG/1 ML VIAL IV SCH ×3 (04:07→21:19)
[2020-12-27] MEDS: metroNIDAZOLE INJ 500 MG/100 ML PREMIX IV SCH ×4 (04:08→21:32)
[2020-12-27 04:09] LABS: Band Neutrophils 2 % (0-10); Hypochromia 1+; Lymphocytes 11 % (20-55); Microcytosis 1+; Platelet Estimate Adequate; Segmented Neutrophils 86 % (50-85); Total Cells Counted 100
[2020-12-27 04:53] LABS: Sedimentation Rate-Westergren 134 MM/HR (0-15)
[2020-12-27 04:54] LABS: Allen Test Positive; Pt O2 Delivery Device Ventilator
[2020-12-27 04:55] LABS: ABG Base Excess -5.7 MMOL/L (-2.5-2.5); ABG HCO3 19.6 MMOL/L (20-26); ABG PO2 74.8 MM HG (80-95); ABG TCO2 21.3 MMOL/L (23-27)
[2020-12-27] MEDS: INSULIN LISPRO 100 UNIT/ML SUBCUT SCH ×4 (06:13→23:51)
[2020-12-27] MEDS: HEPARIN 5,000 UNIT/1 ML VIAL SUBCUT SCH ×3 (06:14→21:32)
[2020-12-27] MEDS: PANTOPRAZOLE 40 MG VIAL IV SCH (08:22)
[2020-12-27] MEDS: cefTRIAXone 2,000 MG in SODIUM CHLORIDE 0.9% 100 ML IV SCH (09:32)
[2020-12-27] MEDS: INSULIN GLARGINE 100 UNIT/ML SUBCUT SCH (10:15)
[2020-12-27] MEDS: ACETAMINOPHEN 325 MG TABLET PO PRN (12:06)
[2020-12-27] MEDS: SIMVASTATIN 10 MG TABLET PO SCH (21:19)
[2020-12-28] MEDS: ALBUTEROL/IPRATROPIUM 3 ML NEB RESP TX SCH ×4 (01:00→18:45)
[2020-12-28] MEDS: VALPROIC ACID INJ 500 MG in SODIUM CHLORIDE 0.9% 100 ML IV SCH ×3 (01:45→16:35)
[2020-12-28] MEDS: ALPRAZolam 0.5 MG TABLET PO SCH ×3 (02:04→19:14)
[2020-12-28] MEDS: fentaNYL INJ 1,250 MCG in SODIUM CHLORIDE 0.9% 225 ML IV PRN (02:48)
[2020-12-28 04:38] LABS: ABG Base Excess -3.3 MMOL/L (-2.5-2.5); ABG HCO3 21.1 MMOL/L (20-26); ABG Oxygen Saturation 96.8 % (95-100); ABG PCO2 34.4 MM HG (35-48); ABG PH 7.405 (7.35-7.45); ABG PO2 89.9 MM HG (80-95); ABG TCO2 22.1 MMOL/L (23-27); Allen Test Positive; Pt O2 Delivery Device Ventilator
[2020-12-28 04:42] LABS: Basophils % 0.2 % (0.0-0.8); Eosinophils % 0.2 % (0.00-10.9); Hematocrit 22.1 VOL% (42.0-52.0); Hemoglobin 7.1 GM/DL (14.0-18.0); Immature Granulocytes % 8.1 %; Immature Granulocytes Absolute 1.47 #; Mean Corpuscular HGB Conc 32.1 GM/DL (32-36); Mean Corpuscular Volume 89.8 FL (87-102); Mean Platelet Volume 11.3 FL (9.6-12.0); Monocytes % 4.9 % (1.7-12.7); NRBC # 0.07 10*3/uL; Neutrophils % 75.6 % (38.7-73.9); Platelet Count 201 T/CUMM (130-400); Red Blood Count 2.46 MC/CUMM (3.8-5.5); Red Cell Distribution Width 16.8 % (9.3-17.3); White Blood Count 18.1 T/CUMM (4-12)
[2020-12-28 04:50] LABS: Bilirubin,Urine Negative (Negative); Blood, Urine Large mg/dL (Negative); Glucose,Urine (UA) 50 mg/dL (Negative); Ketones,Urine Negative (Negative); Nitrite,Urine Negative (Negative); Protein,Urine 100 MG/DL; RBC,Urine 317 /HPF (0-4); Squamous Epithelial Cell,Urine Occasional /HPF (0-10); Urine Appearance CLOUDY (Clear); Urine Color Yellow (Yellow); Urine Specific Gravity 1.013 (1.001-1.035); Urine Urobilinogen < 2.0 EU/DL (0.2-1.0)
[2020-12-28 05:04] LABS: Band Neutrophils 2 % (0-10); Hypochromia Slight; Lymphocytes 9 % (20-55); Nucleated Red Blood Cells 1 (0-5); Platelet Estimate Normal; Segmented Neutrophils 87 % (50-85); Total Cells Counted 100
[2020-12-28 05:05] LABS: Alanine Aminotransferase 11 U/L (16-61); Albumin 1.2 G/DL (3.4-5.0); Alkaline Phosphatase 78 U/L (45-117); Aspartate Amino Transferase 30 U/L (0-37); Bilirubin,Total < 0.39 MG/DL (0.20-1.00); Blood Urea Nitrogen 64 MG/DL (7-18); Carbon Dioxide 22 MMOL/L (21-32); Estimated Glom Filtration Rate 25 ML/MIN; Glucose 264 MG/DL (74-106); Osmolality,Calculated 316.6 MOS/KG (273-304); Potassium 4.3 MMOL/L (3.5-5.1); Sodium 146 MMOL/L (136-145); Total Protein 6.9 G/DL (6.4-8.2)
[2020-12-28 05:12] LABS: Uric Acid 5.9 MG/DL (3.5-7.2)
[2020-12-28] MEDS: metroNIDAZOLE INJ 500 MG/100 ML PREMIX IV SCH ×4 (05:29→22:57)
[2020-12-28] MEDS: methylPREDNISolone SOD SUC 40 MG/1 ML VIAL IV SCH ×3 (05:29→20:55)
[2020-12-28] MEDS: HEPARIN 5,000 UNIT/1 ML VIAL SUBCUT SCH ×3 (06:19→22:58)
[2020-12-28] MEDS: INSULIN LISPRO 100 UNIT/ML SUBCUT SCH ×3 (06:32→19:09)
[2020-12-28] MEDS: PANTOPRAZOLE 40 MG VIAL IV SCH (10:15)
[2020-12-28] MEDS: cefTRIAXone 2,000 MG in SODIUM CHLORIDE 0.9% 100 ML IV SCH (10:40)
[2020-12-28] MEDS ORDERED: SODIUM CHLORIDE 0.9% 1,000 ML IV PRN (10:53)
[2020-12-28] MEDS ORDERED: cefTRIAXone 2,000 MG in SODIUM CHLORIDE 0.9% 100 ML IV SCH (11:00)
[2020-12-28] MEDS: INSULIN GLARGINE 100 UNIT/ML SUBCUT SCH (11:38)
[2020-12-28] MEDS: ACETAMINOPHEN 325 MG TABLET PO PRN (11:42)
[2020-12-28] MEDS: SODIUM CHLORIDE 0.45% 1,000 ML IV SCH (12:29)
[2020-12-28] MEDS: ASPIRIN CHEW 81 MG TABLET PO SCH (14:27)
[2020-12-28] MEDS: hydrALAZINE 25 MG TABLET PO SCH ×2 (14:27→20:55)
[2020-12-28] MEDS: FLUCONAZOLE INJ 200 MG/100 ML PREMIX IV SCH (14:28)
[2020-12-28] MEDS: ATORVASTATIN 40 MG TABLET PO SCH (20:55)
[2020-12-29] MEDS: SODIUM CHLORIDE 0.45% 1,000 ML IV SCH
[2020-12-29] MEDS: ALBUTEROL/IPRATROPIUM 3 ML NEB RESP TX SCH ×4 (00:59→19:17)
[2020-12-29] MEDS: ALPRAZolam 0.5 MG TABLET PO SCH ×3 (01:41→17:12)
[2020-12-29] MEDS: VALPROIC ACID INJ 500 MG in SODIUM CHLORIDE 0.9% 100 ML IV SCH ×3 (01:41→17:01)
[2020-12-29] MEDS: hydrALAZINE 25 MG TABLET PO SCH ×3 (03:33→21:07)
[2020-12-29] MEDS: metroNIDAZOLE INJ 500 MG/100 ML PREMIX IV SCH (03:34)
[2020-12-29] MEDS: methylPREDNISolone SOD SUC 40 MG/1 ML VIAL IV SCH ×3 (03:34→21:37)
[2020-12-29 04:16] LABS: Basophils # 0.1 10*3/uL (0.0-0.2); Basophils % 0.4 % (0.0-0.8); Eosinophils % 0.1 % (0.00-10.9); Hematocrit 23.6 VOL% (42.0-52.0); Hemoglobin 7.5 GM/DL (14.0-18.0); Immature Granulocytes % 10.1 %; Immature Granulocytes Absolute 1.77 #; Lymphocytes # 1.9 10*3/uL (1.4-4.0); Lymphocytes % 10.8 % (21.2-54.2); Mean Corpuscular HGB Conc 31.8 GM/DL (32-36); Mean Corpuscular Volume 91.8 FL (87-102); Mean Platelet Volume 10.8 FL (9.6-12.0); Monocytes % 5.4 % (1.7-12.7); NRBC # 0.05 10*3/uL; Neutrophils % 73.2 % (38.7-73.9); Platelet Count 165 T/CUMM (130-400); Red Blood Count 2.57 MC/CUMM (3.8-5.5); Red Cell Distribution Width 16.7 % (9.3-17.3); White Blood Count 17.6 T/CUMM (4-12)
[2020-12-29 04:42] LABS: Band Neutrophils 2 % (0-10); Hypochromia 1+; Lymphocytes 5 % (20-55); Microcytosis 1+; Nucleated Red Blood Cells 1 (0-5); Platelet Estimate Adequate; Segmented Neutrophils 89 % (50-85); Total Cells Counted 100
[2020-12-29 04:44] LABS: Alanine Aminotransferase < 9 U/L (16-61); Albumin 1.1 G/DL (3.4-5.0); Alkaline Phosphatase 79 U/L (45-117); Aspartate Amino Transferase 21 U/L (0-37); Bilirubin,Total < 0.39 MG/DL (0.20-1.00); Blood Urea Nitrogen 72 MG/DL (7-18); Calcium 8.1 MG/DL (8.5-10.1); Carbon Dioxide 22 MMOL/L (21-32); Estimated Glom Filtration Rate 23 ML/MIN; Glucose 257 MG/DL (74-106); Osmolality,Calculated 315.8 MOS/KG (273-304); Potassium 4.3 MMOL/L (3.5-5.1); Sodium 144 MMOL/L (136-145); Total Protein 6.8 G/DL (6.4-8.2)
[2020-12-29 04:50] LABS: Risk Ratio 11.64; VLDL Cholesterol 92.6 MG/DL
[2020-12-29] MEDS: INSULIN LISPRO 100 UNIT/ML SUBCUT SCH ×4 (05:37→17:13)
[2020-12-29] MEDS: HEPARIN 5,000 UNIT/1 ML VIAL SUBCUT SCH ×3 (05:38→21:41)
[2020-12-29 06:01] LABS: ABG Base Excess -3.4 MMOL/L (-2.5-2.5); ABG HCO3 21.5 MMOL/L (20-26); ABG Oxygen Saturation 97.2 % (95-100); ABG PCO2 33.6 MM HG (35-48); ABG PH 7.399 (7.35-7.45); ABG PO2 91.7 MM HG (80-95); ABG TCO2 19.4 MMOL/L (23-27)
[2020-12-29] MEDS: PANTOPRAZOLE 40 MG VIAL IV SCH (08:58)
[2020-12-29] MEDS: INSULIN GLARGINE 100 UNIT/ML SUBCUT SCH (08:58)
[2020-12-29] MEDS: ASPIRIN CHEW 81 MG TABLET PO SCH (08:58)
[2020-12-29] MEDS: ERTAPENEM 500 MG in SODIUM CHLORIDE 0.9% 100 ML IV SCH (12:07)
[2020-12-29] MEDS: FLUCONAZOLE INJ 200 MG/100 ML PREMIX IV SCH (12:47)
[2020-12-29] MEDS: fentaNYL INJ 1,250 MCG in SODIUM CHLORIDE 0.9% 225 ML IV PRN (15:15)
[2020-12-29] MEDS: ATORVASTATIN 40 MG TABLET PO SCH (21:07)
[2020-12-30] MEDS: ALBUTEROL/IPRATROPIUM 3 ML NEB RESP TX SCH ×4 (00:02→19:15)
[2020-12-30] MEDS: INSULIN LISPRO 100 UNIT/ML SUBCUT SCH ×4 (00:28→19:12)
[2020-12-30] MEDS: VALPROIC ACID INJ 500 MG in SODIUM CHLORIDE 0.9% 100 ML IV SCH ×3 (00:29→16:27)
[2020-12-30] MEDS: hydrALAZINE 25 MG TABLET PO SCH ×4 (04:27→22:50)
[2020-12-30] MEDS: ALPRAZolam 0.5 MG TABLET PO SCH ×3 (04:27→18:24)
[2020-12-30] MEDS: fentaNYL INJ 1,250 MCG in SODIUM CHLORIDE 0.9% 225 ML IV PRN (04:30)
[2020-12-30 05:08] LABS: ABG Base Excess -3.8 MMOL/L (-2.5-2.5); ABG HCO3 21.2 MMOL/L (20-26); ABG Oxygen Saturation 98.4 % (95-100); ABG PCO2 43.5 MM HG (35-48); ABG PH 7.315 (7.35-7.45); ABG TCO2 20.9 MMOL/L (23-27)
[2020-12-30 05:51] LABS: Basophils % 0.2 % (0.0-0.8); Eosinophils % 0.1 % (0.00-10.9); Hematocrit 24.8 VOL% (42.0-52.0); Hemoglobin 7.6 GM/DL (14.0-18.0); Immature Granulocytes % 9.6 %; Lymphocytes % 12.1 % (21.2-54.2); Mean Corpuscular HGB Conc 30.6 GM/DL (32-36); Mean Corpuscular Volume 92.5 FL (87-102); Mean Platelet Volume 11.3 FL (9.6-12.0); Monocytes % 6.4 % (1.7-12.7); NRBC # 0.04 10*3/uL; Neutrophils % 71.6 % (38.7-73.9); Platelet Count 167 T/CUMM (130-400); Red Blood Count 2.68 MC/CUMM (3.8-5.5); Red Cell Distribution Width 16.5 % (9.3-17.3); White Blood Count 16.6 T/CUMM (4-12)
[2020-12-30 06:12] LABS: Band Neutrophils 2 % (0-10); Hypochromia 1+; Lymphocytes 12 % (20-55); Microcytosis 1+; Platelet Estimate Adequate; Segmented Neutrophils 80 % (50-85); Total Cells Counted 100
[2020-12-30 06:14] LABS: Calcium 8.3 MG/DL (8.5-10.1); Osmolality,Calculated 323.6 MOS/KG (273-304); Potassium 4.3 MMOL/L (3.5-5.1)
[2020-12-30] MEDS: HEPARIN 5,000 UNIT/1 ML VIAL SUBCUT SCH ×3 (06:35→22:50)
[2020-12-30] MEDS ORDERED: FUROSEMIDE 40 MG/4 ML VIAL IV ONE (07:50)
[2020-12-30] MEDS: INSULIN GLARGINE 100 UNIT/ML SUBCUT SCH (08:13)
[2020-12-30] MEDS: ASPIRIN CHEW 81 MG TABLET PO SCH (08:14)
[2020-12-30] MEDS: PANTOPRAZOLE 40 MG VIAL IV SCH (08:14)
[2020-12-30] MEDS: methylPREDNISolone SOD SUC 40 MG/1 ML VIAL IV SCH ×2 (10:49→22:50)
[2020-12-30] MEDS: ERTAPENEM 500 MG in SODIUM CHLORIDE 0.9% 100 ML IV SCH (11:38)
[2020-12-30] MEDS: FLUCONAZOLE INJ 200 MG/100 ML PREMIX IV SCH (13:02)
[2020-12-30] MEDS: ATORVASTATIN 40 MG TABLET PO SCH (22:50)
[2020-12-31] MEDS: ALBUTEROL/IPRATROPIUM 3 ML NEB RESP TX SCH ×5 (00:40→23:56)
[2020-12-31] MEDS: ALPRAZolam 0.5 MG TABLET PO SCH ×3 (02:07→17:46)
[2020-12-31] MEDS: INSULIN LISPRO 100 UNIT/ML SUBCUT SCH ×4 (02:07→21:18)
[2020-12-31] MEDS: VALPROIC ACID INJ 500 MG in SODIUM CHLORIDE 0.9% 100 ML IV SCH ×3 (02:07→17:46)
[2020-12-31] MEDS: hydrALAZINE 25 MG TABLET PO SCH ×3 (04:10→20:33)
[2020-12-31 05:49] LABS: Basophils % 0.2 % (0.0-0.8); Eosinophils % 0.1 % (0.00-10.9); Hemoglobin 8.7 GM/DL (14.0-18.0); Immature Granulocytes % 7.8 %; Immature Granulocytes Absolute 1.34 #; Lymphocytes # 1.4 10*3/uL (1.4-4.0); Lymphocytes % 7.9 % (21.2-54.2); Mean Corpuscular HGB Conc 31.1 GM/DL (32-36); Mean Corpuscular Volume 92.1 FL (87-102); NRBC # 0.06 10*3/uL; Platelet Count 187 T/CUMM (130-400); Red Blood Count 3.04 MC/CUMM (3.8-5.5); White Blood Count 17.1 T/CUMM (4-12)
[2020-12-31 06:00] LABS: Calcium 8.5 MG/DL (8.5-10.1); Osmolality,Calculated 324.6 MOS/KG (273-304)
[2020-12-31 06:07] LABS: Lymphocytes 9 % (20-55); Segmented Neutrophils 86 % (50-85); Total Cells Counted 100
[2020-12-31 06:08] LABS: Hypochromia 1+; Platelet Estimate Normal
[2020-12-31] MEDS: HEPARIN 5,000 UNIT/1 ML VIAL SUBCUT SCH ×3 (06:38→22:26)
[2020-12-31] MEDS: ASPIRIN CHEW 81 MG TABLET PO SCH (08:22)
[2020-12-31] MEDS: PANTOPRAZOLE 40 MG VIAL IV SCH (08:23)
[2020-12-31] MEDS: INSULIN GLARGINE 100 UNIT/ML SUBCUT SCH (08:23)
[2020-12-31] MEDS: methylPREDNISolone SOD SUC 40 MG/1 ML VIAL IV SCH ×2 (09:30→23:05)
[2020-12-31] MEDS: FLUCONAZOLE INJ 200 MG/100 ML PREMIX IV SCH (12:38)
[2020-12-31] MEDS: ERTAPENEM 500 MG in SODIUM CHLORIDE 0.9% 100 ML IV SCH (12:38)
[2020-12-31] MEDS: amLODIPine 10 MG TABLET PO SCH (12:45)
[2020-12-31] MEDS ORDERED: FUROSEMIDE 40 MG/4 ML VIAL IV SCH (16:00)
[2020-12-31] MEDS: hydrALAZINE 20 MG/1 ML VIAL IV PRN (18:04)
[2020-12-31] MEDS: ATORVASTATIN 40 MG TABLET PO SCH (20:33)
[2021-01-01] MEDS: VALPROIC ACID INJ 500 MG in SODIUM CHLORIDE 0.9% 100 ML IV SCH ×3 (02:48→17:57)
[2021-01-01] MEDS: ALPRAZolam 0.5 MG TABLET PO SCH ×3 (03:09→17:58)
[2021-01-01] MEDS: hydrALAZINE 25 MG TABLET PO SCH ×3 (04:58→21:59)
[2021-01-01 05:16] LABS: Basophils # 0.1 10*3/uL (0.0-0.2); Basophils % 0.3 % (0.0-0.8); Eosinophils % 0.1 % (0.00-10.9); Hematocrit 29.1 VOL% (42.0-52.0); Hemoglobin 9.1 GM/DL (14.0-18.0); Immature Granulocytes % 8.2 %; Immature Granulocytes Absolute 1.34 #; Lymphocytes # 1.2 10*3/uL (1.4-4.0); Lymphocytes % 7.3 % (21.2-54.2); Mean Corpuscular HGB Conc 31.3 GM/DL (32-36); Mean Corpuscular Volume 91.2 FL (87-102); Mean Platelet Volume 11.4 FL (9.6-12.0); Monocytes % 4.5 % (1.7-12.7); NRBC # 0.05 10*3/uL; Neutrophils % 79.6 % (38.7-73.9); Platelet Count 237 T/CUMM (130-400); Red Blood Count 3.19 MC/CUMM (3.8-5.5); Red Cell Distribution Width 15.7 % (9.3-17.3); White Blood Count 16.3 T/CUMM (4-12)
[2021-01-01 05:42] LABS: Alanine Aminotransferase 10 U/L (16-61); Albumin 1.3 G/DL (3.4-5.0); Alkaline Phosphatase 82 U/L (45-117); Aspartate Amino Transferase 22 U/L (0-37); Bilirubin,Total < 0.39 MG/DL (0.20-1.00); Blood Urea Nitrogen 77 MG/DL (7-18); Calcium 8.3 MG/DL (8.5-10.1); Carbon Dioxide 25 MMOL/L (21-32); Estimated Glom Filtration Rate 32 ML/MIN; Glucose 304 MG/DL (74-106); Osmolality,Calculated 327.3 MOS/KG (273-304); Potassium 3.9 MMOL/L (3.5-5.1); Sodium 148 MMOL/L (136-145); Total Protein 7.6 G/DL (6.4-8.2)
[2021-01-01] MEDS: HEPARIN 5,000 UNIT/1 ML VIAL SUBCUT SCH ×3 (06:06→22:00)
[2021-01-01 06:17] LABS: Hypochromia Slight; Lymphocytes 4 % (20-55); Metamyelocytes 2 %; Myelocytes 2 %; Platelet Estimate Normal; Polychromasia Slight; Segmented Neutrophils 88 % (50-85); Total Cells Counted 100
[2021-01-01] MEDS: ALBUTEROL/IPRATROPIUM 3 ML NEB RESP TX SCH ×3 (07:25→20:02)
[2021-01-01] MEDS ORDERED: FUROSEMIDE 40 MG/4 ML VIAL IV SCH (09:00)
[2021-01-01] MEDS: ASPIRIN CHEW 81 MG TABLET PO SCH (09:11)
[2021-01-01] MEDS: PANTOPRAZOLE 40 MG VIAL IV SCH (09:11)
[2021-01-01] MEDS: amLODIPine 10 MG TABLET PO SCH (09:11)
[2021-01-01] MEDS: INSULIN GLARGINE 100 UNIT/ML SUBCUT SCH (09:55)
[2021-01-01] MEDS: INSULIN LISPRO 100 UNIT/ML SUBCUT SCH ×6 (11:01→22:00)
[2021-01-01] MEDS: methylPREDNISolone SOD SUC 40 MG/1 ML VIAL IV SCH ×2 (12:28→22:01)
[2021-01-01] MEDS: ERTAPENEM 500 MG in SODIUM CHLORIDE 0.9% 100 ML IV SCH (12:29)
[2021-01-01] MEDS: FLUCONAZOLE INJ 200 MG/100 ML PREMIX IV SCH (13:51)
[2021-01-01] MEDS: ATORVASTATIN 40 MG TABLET PO SCH (21:59)
[2021-01-02] MEDS: VALPROIC ACID INJ 500 MG in SODIUM CHLORIDE 0.9% 100 ML IV SCH ×3 (00:43→17:17)
[2021-01-02] MEDS: ALBUTEROL/IPRATROPIUM 3 ML NEB RESP TX SCH ×4 (01:07→19:38)
[2021-01-02] MEDS: hydrALAZINE 25 MG TABLET PO SCH ×2 (04:59→14:25)
[2021-01-02 05:52] LABS: Basophils # 0.1 10*3/uL (0.0-0.2); Basophils % 0.4 % (0.0-0.8); Hematocrit 28.2 VOL% (42.0-52.0); Hemoglobin 9.1 GM/DL (14.0-18.0); Immature Granulocytes % 7.1 %; Immature Granulocytes Absolute 1.13 #; Lymphocytes # 1.5 10*3/uL (1.4-4.0); Lymphocytes % 9.2 % (21.2-54.2); Mean Corpuscular HGB Conc 32.3 GM/DL (32-36); Mean Corpuscular Volume 91.6 FL (87-102); Mean Platelet Volume 11.6 FL (9.6-12.0); Monocytes % 4.8 % (1.7-12.7); NRBC # 0.06 10*3/uL; Neutrophils % 78.5 % (38.7-73.9); Platelet Count 297 T/CUMM (130-400); Red Blood Count 3.08 MC/CUMM (3.8-5.5); Red Cell Distribution Width 15.7 % (9.3-17.3); White Blood Count 15.9 T/CUMM (4-12)
[2021-01-02 06:09] LABS: Calcium 8.6 MG/DL (8.5-10.1); Osmolality,Calculated 318.6 MOS/KG (273-304); Potassium 4.1 MMOL/L (3.5-5.1)
[2021-01-02] MEDS ORDERED: ALPRAZolam 0.5 MG TABLET PO PRN (06:19)
[2021-01-02] MEDS: HEPARIN 5,000 UNIT/1 ML VIAL SUBCUT SCH ×3 (06:40→21:46)
[2021-01-02 07:21] LABS: Band Neutrophils 3 % (0-10); Eosinophils 2 % (0-10); Lymphocytes 10 % (20-55); Segmented Neutrophils 79 % (50-85); Total Cells Counted 100
[2021-01-02 07:22] LABS: Anisocytosis 1+; Hypochromia Slight; Platelet Estimate Adequate
[2021-01-02] MEDS: INSULIN LISPRO 100 UNIT/ML SUBCUT SCH ×8 (09:33→21:47)
[2021-01-02] MEDS: PANTOPRAZOLE 40 MG VIAL IV SCH (09:34)
[2021-01-02] MEDS: methylPREDNISolone SOD SUC 40 MG/1 ML VIAL IV SCH ×2 (09:34→21:46)
[2021-01-02] MEDS: ASPIRIN CHEW 81 MG TABLET PO SCH (09:35)
[2021-01-02] MEDS: amLODIPine 10 MG TABLET PO SCH (09:35)
[2021-01-02] MEDS: INSULIN GLARGINE 100 UNIT/ML SUBCUT SCH (09:36)
[2021-01-02] MEDS: ERTAPENEM 500 MG in SODIUM CHLORIDE 0.9% 100 ML IV SCH (13:03)
[2021-01-02] MEDS: FLUCONAZOLE INJ 200 MG/100 ML PREMIX IV SCH (14:25)
[2021-01-02] MEDS: HYDROmorphone 2 MG/1 ML VIAL IV PRN (19:26)
[2021-01-02] MEDS: ATORVASTATIN 40 MG TABLET PO SCH (21:46)
[2021-01-03] MEDS: VALPROIC ACID INJ 500 MG in SODIUM CHLORIDE 0.9% 100 ML IV SCH ×3 (01:07→17:29)
[2021-01-03] MEDS: ALBUTEROL/IPRATROPIUM 3 ML NEB RESP TX SCH ×4 (01:30→19:26)
[2021-01-03] MEDS: HEPARIN 5,000 UNIT/1 ML VIAL SUBCUT SCH ×3 (05:31→23:14)
[2021-01-03 05:47] LABS: Basophils # 0.1 10*3/uL (0.0-0.2); Basophils % 0.3 % (0.0-0.8); Hematocrit 28.6 VOL% (42.0-52.0); Hemoglobin 8.9 GM/DL (14.0-18.0); Immature Granulocytes % 6.4 %; Immature Granulocytes Absolute 1.33 #; Lymphocytes # 1.5 10*3/uL (1.4-4.0); Mean Corpuscular HGB Conc 31.1 GM/DL (32-36); Mean Corpuscular Volume 93.5 FL (87-102); Mean Platelet Volume 11.3 FL (9.6-12.0); Monocytes % 7.4 % (1.7-12.7); Neutrophils % 78.9 % (38.7-73.9); Platelet Count 344 T/CUMM (130-400); Red Blood Count 3.06 MC/CUMM (3.8-5.5); Red Cell Distribution Width 15.9 % (9.3-17.3); White Blood Count 20.9 T/CUMM (4-12)
[2021-01-03 06:08] LABS: Calcium 8.3 MG/DL (8.5-10.1); Osmolality,Calculated 312.1 MOS/KG (273-304); Potassium 4.3 MMOL/L (3.5-5.1)
[2021-01-03 06:12] LABS: Band Neutrophils 2 % (0-10); Hypochromia 1+; Lymphocytes 5 % (20-55); Microcytosis 1+; Nucleated Red Blood Cells 1 (0-5); Ovalocytes Slight; Platelet Estimate Adequate; Segmented Neutrophils 91 % (50-85); Total Cells Counted 100
[2021-01-03] MEDS: INSULIN LISPRO 100 UNIT/ML SUBCUT SCH ×7 (09:42→21:12)
[2021-01-03] MEDS: INSULIN GLARGINE 100 UNIT/ML SUBCUT SCH (09:44)
[2021-01-03] MEDS: PANTOPRAZOLE 40 MG VIAL IV SCH (09:50)
[2021-01-03] MEDS: methylPREDNISolone SOD SUC 40 MG/1 ML VIAL IV SCH ×2 (09:50→23:14)
[2021-01-03] MEDS: ASPIRIN CHEW 81 MG TABLET PO SCH (09:51)
[2021-01-03] MEDS: amLODIPine 10 MG TABLET PO SCH (09:51)
[2021-01-03] MEDS: FLUCONAZOLE INJ 200 MG/100 ML PREMIX IV SCH (13:25)
[2021-01-03] MEDS: ERTAPENEM 500 MG in SODIUM CHLORIDE 0.9% 100 ML IV SCH (13:26)
[2021-01-03] MEDS: ATORVASTATIN 40 MG TABLET PO SCH (21:12)
[2021-01-04] MEDS: ALBUTEROL/IPRATROPIUM 3 ML NEB RESP TX SCH ×4 (01:00→20:05)
[2021-01-04] MEDS: VALPROIC ACID INJ 500 MG in SODIUM CHLORIDE 0.9% 100 ML IV SCH ×3 (02:12→17:13)
[2021-01-04 06:20] LABS: Basophils # 0.1 10*3/uL (0.0-0.2); Basophils % 0.5 % (0.0-0.8); Hematocrit 27.6 VOL% (42.0-52.0); Immature Granulocytes % 8.4 %; Immature Granulocytes Absolute 1.39 #; Lymphocytes # 1.1 10*3/uL (1.4-4.0); Lymphocytes % 6.8 % (21.2-54.2); Mean Corpuscular HGB Conc 32.6 GM/DL (32-36); Mean Corpuscular Volume 91.7 FL (87-102); Mean Platelet Volume 11.4 FL (9.6-12.0); Monocytes % 5.3 % (1.7-12.7); NRBC # 0.07 10*3/uL; Platelet Count 398 T/CUMM (130-400); Red Blood Count 3.01 MC/CUMM (3.8-5.5); Red Cell Distribution Width 15.7 % (9.3-17.3); White Blood Count 16.5 T/CUMM (4-12)
[2021-01-04 06:45] LABS: Band Neutrophils 3 % (0-10); Hypochromia 1+; Lymphocytes 6 % (20-55); Microcytosis 1+; Platelet Estimate Adequate; Segmented Neutrophils 88 % (50-85); Total Cells Counted 100
[2021-01-04 06:55] LABS: Calcium 8.2 MG/DL (8.5-10.1); Osmolality,Calculated 303.4 MOS/KG (273-304); Potassium 4.2 MMOL/L (3.5-5.1)
[2021-01-04] MEDS: amLODIPine 10 MG TABLET PO SCH (09:55)
[2021-01-04] MEDS: INSULIN LISPRO 100 UNIT/ML SUBCUT SCH ×7 (09:55→22:54)
[2021-01-04] MEDS: INSULIN GLARGINE 100 UNIT/ML SUBCUT SCH (09:56)
[2021-01-04] MEDS: HEPARIN 5,000 UNIT/1 ML VIAL SUBCUT SCH ×3 (10:03→22:54)
[2021-01-04] MEDS: ASPIRIN CHEW 81 MG TABLET PO SCH (10:03)
[2021-01-04] MEDS: PANTOPRAZOLE 40 MG VIAL IV SCH (10:04)
[2021-01-04] MEDS: ERTAPENEM 500 MG in SODIUM CHLORIDE 0.9% 100 ML IV SCH (11:28)
[2021-01-04] MEDS: methylPREDNISolone SOD SUC 40 MG/1 ML VIAL IV SCH ×2 (11:28→22:54)
[2021-01-04] MEDS: FLUCONAZOLE INJ 200 MG/100 ML PREMIX IV SCH (12:38)
[2021-01-04] MEDS: ATORVASTATIN 40 MG TABLET PO SCH (22:53)
[2021-01-05] MEDS: ALBUTEROL/IPRATROPIUM 3 ML NEB RESP TX SCH ×4 (00:45→19:16)
[2021-01-05] MEDS: VALPROIC ACID INJ 500 MG in SODIUM CHLORIDE 0.9% 100 ML IV SCH ×3 (01:29→17:08)
[2021-01-05 05:21] LABS: Basophils # 0.1 10*3/uL (0.0-0.2); Basophils % 0.3 % (0.0-0.8); Hematocrit 28.5 VOL% (42.0-52.0); Hemoglobin 9.2 GM/DL (14.0-18.0); Immature Granulocytes % 8.3 %; Immature Granulocytes Absolute 1.31 #; Lymphocytes # 1.5 10*3/uL (1.4-4.0); Lymphocytes % 9.4 % (21.2-54.2); Mean Corpuscular HGB Conc 32.3 GM/DL (32-36); Mean Corpuscular Volume 90.5 FL (87-102); Mean Platelet Volume 10.9 FL (9.6-12.0); Monocytes % 4.1 % (1.7-12.7); NRBC # 0.07 10*3/uL; Neutrophils % 77.9 % (38.7-73.9); Platelet Count 526 T/CUMM (130-400); Red Blood Count 3.15 MC/CUMM (3.8-5.5); Red Cell Distribution Width 15.8 % (9.3-17.3); White Blood Count 15.8 T/CUMM (4-12)
[2021-01-05 05:31] LABS: Calcium 8.4 MG/DL (8.5-10.1); Osmolality,Calculated 306.4 MOS/KG (273-304); Potassium 4.3 MMOL/L (3.5-5.1)
[2021-01-05 05:56] LABS: Band Neutrophils 1 % (0-10); Hypochromia Slight; Lymphocytes 8 % (20-55); Microcytosis Slight; Nucleated Red Blood Cells 1 (0-5); Platelet Estimate Adequate; Segmented Neutrophils 86 % (50-85); Total Cells Counted 100
[2021-01-05] MEDS: HEPARIN 5,000 UNIT/1 ML VIAL SUBCUT SCH ×3 (07:07→22:06)
[2021-01-05] MEDS: INSULIN LISPRO 100 UNIT/ML SUBCUT SCH ×2 (08:19→10:44)
[2021-01-05] MEDS: PANTOPRAZOLE 40 MG VIAL IV SCH (09:58)
[2021-01-05] MEDS: methylPREDNISolone SOD SUC 40 MG/1 ML VIAL IV SCH (09:59)
[2021-01-05] MEDS: INSULIN NPH 100 UNIT/ML SUBCUT SCH ×2 (09:59→17:08)
[2021-01-05] MEDS: amLODIPine 10 MG TABLET PO SCH (10:00)
[2021-01-05] MEDS: ASPIRIN CHEW 81 MG TABLET PO SCH (10:01)
[2021-01-05] MEDS: INSULIN GLARGINE 100 UNIT/ML SUBCUT SCH (10:44)
[2021-01-05] MEDS: ERTAPENEM 500 MG in SODIUM CHLORIDE 0.9% 100 ML IV SCH (12:04)
[2021-01-05] MEDS: INSULIN REGULAR 100 UNIT/ML SUBCUT SCH ×3 (12:04→22:06)
[2021-01-05] MEDS: ATORVASTATIN 40 MG TABLET PO SCH (22:05)
[2021-01-06] MEDS: ALBUTEROL/IPRATROPIUM 3 ML NEB RESP TX SCH ×4 (00:22→19:25)
[2021-01-06] MEDS: VALPROIC ACID INJ 500 MG in SODIUM CHLORIDE 0.9% 100 ML IV SCH ×3 (03:19→16:13)
[2021-01-06 05:04] LABS: Basophils # 0.1 10*3/uL (0.0-0.2); Basophils % 0.4 % (0.0-0.8); Eosinophils % 0.2 % (0.00-10.9); Hematocrit 25.3 VOL% (42.0-52.0); Hemoglobin 8.3 GM/DL (14.0-18.0); Immature Granulocytes % 7.1 %; Immature Granulocytes Absolute 1.04 #; Lymphocytes # 3.2 10*3/uL (1.4-4.0); Lymphocytes % 21.6 % (21.2-54.2); Mean Corpuscular HGB Conc 32.8 GM/DL (32-36); Mean Corpuscular Volume 91.7 FL (87-102); Mean Platelet Volume 10.7 FL (9.6-12.0); Monocytes % 10.9 % (1.7-12.7); NRBC # 0.08 10*3/uL; Neutrophils % 59.8 % (38.7-73.9); Platelet Count 528 T/CUMM (130-400); Red Blood Count 2.76 MC/CUMM (3.8-5.5); White Blood Count 14.7 T/CUMM (4-12)
[2021-01-06 05:20] LABS: Calcium 8.2 MG/DL (8.5-10.1); Osmolality,Calculated 300.3 MOS/KG (273-304); Potassium 4.2 MMOL/L (3.5-5.1)
[2021-01-06 05:31] LABS: Band Neutrophils 3 % (0-10); Hypochromia Slight; Lymphocytes 22 % (20-55); Platelet Estimate Increased; Segmented Neutrophils 3 % (50-85); Total Cells Counted 37
[2021-01-06] MEDS: HEPARIN 5,000 UNIT/1 ML VIAL SUBCUT SCH ×3 (06:40→22:23)
[2021-01-06] MEDS: PANTOPRAZOLE 40 MG VIAL IV SCH (09:23)
[2021-01-06] MEDS: INSULIN REGULAR 100 UNIT/ML SUBCUT SCH ×4 (09:24→22:23)
[2021-01-06] MEDS: INSULIN NPH 100 UNIT/ML SUBCUT SCH ×2 (09:24→16:13)
[2021-01-06] MEDS: methylPREDNISolone SOD SUC 40 MG/1 ML VIAL IV SCH (09:24)
[2021-01-06] MEDS: amLODIPine 10 MG TABLET PO SCH (09:25)
[2021-01-06] MEDS: ASPIRIN CHEW 81 MG TABLET PO SCH (09:25)
[2021-01-06] MEDS: ATORVASTATIN 40 MG TABLET PO SCH (22:23)
[2021-01-07] MEDS: ALBUTEROL/IPRATROPIUM 3 ML NEB RESP TX SCH ×4 (00:48→19:46)
[2021-01-07] MEDS: VALPROIC ACID INJ 500 MG in SODIUM CHLORIDE 0.9% 100 ML IV SCH ×3 (01:28→16:23)
[2021-01-07] MEDS: HEPARIN 5,000 UNIT/1 ML VIAL SUBCUT SCH ×3 (05:56→21:48)
[2021-01-07] MEDS: INSULIN REGULAR 100 UNIT/ML SUBCUT SCH ×4 (08:17→21:49)
[2021-01-07] MEDS: INSULIN NPH 100 UNIT/ML SUBCUT SCH (08:17)
[2021-01-07 08:22] LABS: Basophils # 0.1 10*3/uL (0.0-0.2); Basophils % 0.4 % (0.0-0.8); Eosinophils % 0.2 % (0.00-10.9); Hematocrit 25.8 VOL% (42.0-52.0); Hemoglobin 8.2 GM/DL (14.0-18.0); Immature Granulocytes Absolute 0.68 #; Lymphocytes # 3.5 10*3/uL (1.4-4.0); Mean Corpuscular HGB Conc 31.8 GM/DL (32-36); Mean Corpuscular Volume 93.5 FL (87-102); Mean Platelet Volume 10.5 FL (9.6-12.0); Monocytes % 12.4 % (1.7-12.7); NRBC # 0.05 10*3/uL; Platelet Count 546 T/CUMM (130-400); Red Blood Count 2.76 MC/CUMM (3.8-5.5); Red Cell Distribution Width 16.4 % (9.3-17.3); White Blood Count 16.9 T/CUMM (4-12)
[2021-01-07 08:36] LABS: Calcium 8.1 MG/DL (8.5-10.1); Osmolality,Calculated 296.3 MOS/KG (273-304)
[2021-01-07 09:33] LABS: Anisocytosis 1+; Band Neutrophils 5 % (0-10); Eosinophils 2 % (0-10); Lymphocytes 22 % (20-55); Macrocytosis 1+; Metamyelocytes 1 %; Nucleated Red Blood Cells 1 (0-5); Platelet Estimate Increased; Segmented Neutrophils 58 % (50-85); Tear Drop Cells Few; Total Cells Counted 100
[2021-01-07 09:34] LABS: Target Cells Few
[2021-01-07] MEDS: ASPIRIN CHEW 81 MG TABLET PO SCH (09:43)
[2021-01-07] MEDS: amLODIPine 10 MG TABLET PO SCH (09:43)
[2021-01-07] MEDS: PANTOPRAZOLE 40 MG VIAL IV SCH (09:43)
[2021-01-07] MEDS: methylPREDNISolone SOD SUC 40 MG/1 ML VIAL IV SCH (09:44)
[2021-01-07] MEDS ORDERED: INSULIN NPH 100 UNIT/ML SUBCUT SCH (17:00)
[2021-01-07] MEDS: ATORVASTATIN 40 MG TABLET PO SCH (21:48)
[2021-01-08] MEDS: VALPROIC ACID INJ 500 MG in SODIUM CHLORIDE 0.9% 100 ML IV SCH ×3 (00:32→16:05)
[2021-01-08] MEDS: ALBUTEROL/IPRATROPIUM 3 ML NEB RESP TX SCH ×4 (00:42→20:32)
[2021-01-08 04:31] LABS: Basophils % 0.2 % (0.0-0.8); Eosinophils % 0.2 % (0.00-10.9); Hematocrit 25.8 VOL% (42.0-52.0); Hemoglobin 8.1 GM/DL (14.0-18.0); Immature Granulocytes % 3.5 %; Immature Granulocytes Absolute 0.57 #; Lymphocytes # 3.4 10*3/uL (1.4-4.0); Lymphocytes % 21.2 % (21.2-54.2); Mean Corpuscular HGB Conc 31.4 GM/DL (32-36); Mean Corpuscular Volume 91.5 FL (87-102); Mean Platelet Volume 10.8 FL (9.6-12.0); Monocytes % 10.6 % (1.7-12.7); NRBC # 0.04 10*3/uL; Neutrophils % 64.3 % (38.7-73.9); Platelet Count 562 T/CUMM (130-400); Red Blood Count 2.82 MC/CUMM (3.8-5.5); Red Cell Distribution Width 16.2 % (9.3-17.3); White Blood Count 16.2 T/CUMM (4-12)
[2021-01-08 04:53] LABS: Band Neutrophils 2 % (0-10); Hypochromia 1+; Lymphocytes 24 % (20-55); Microcytosis 1+; Platelet Estimate Adequate; Segmented Neutrophils 71 % (50-85); Total Cells Counted 100
[2021-01-08 05:08] LABS: Calcium 8.2 MG/DL (8.5-10.1); Potassium 3.9 MMOL/L (3.5-5.1)
[2021-01-08] MEDS: HEPARIN 5,000 UNIT/1 ML VIAL SUBCUT SCH ×3 (06:40→21:30)
[2021-01-08] MEDS: INSULIN REGULAR 100 UNIT/ML SUBCUT SCH ×4 (07:21→21:24)
[2021-01-08] MEDS ORDERED: INSULIN NPH 100 UNIT/ML SUBCUT SCH ×2 (08:00→17:00)
[2021-01-08] MEDS: ASPIRIN CHEW 81 MG TABLET PO SCH (09:09)
[2021-01-08] MEDS: methylPREDNISolone SOD SUC 40 MG/1 ML VIAL IV SCH (09:10)
[2021-01-08] MEDS: PANTOPRAZOLE 40 MG VIAL IV SCH (09:13)
[2021-01-08] MEDS: amLODIPine 10 MG TABLET PO SCH (09:14)
[2021-01-08] MEDS: ATORVASTATIN 40 MG TABLET PO SCH (21:23)
[2021-01-08] MEDS ORDERED: LORazepam 2 MG/1 ML VIAL IV ONE (23:53)
[2021-01-09] MEDS ORDERED: SKIN HEALING OINT (AQUAPHOR) 50 GM TUBE TOP PRN (00:46)
[2021-01-09] MEDS: ALBUTEROL/IPRATROPIUM 3 ML NEB RESP TX SCH ×5 (01:00→20:45)
[2021-01-09] MEDS: VALPROIC ACID INJ 500 MG in SODIUM CHLORIDE 0.9% 100 ML IV SCH ×3 (01:11→17:29)
[2021-01-09 04:28] LABS: Basophils % 0.1 % (0.0-0.8); Eosinophils % 0.3 % (0.00-10.9); Hematocrit 23.8 VOL% (42.0-52.0); Hemoglobin 7.3 GM/DL (14.0-18.0); Immature Granulocytes % 1.9 %; Immature Granulocytes Absolute 0.26 #; Lymphocytes # 2.5 10*3/uL (1.4-4.0); Lymphocytes % 18.4 % (21.2-54.2); Mean Corpuscular HGB Conc 30.7 GM/DL (32-36); Mean Platelet Volume 10.8 FL (9.6-12.0); Neutrophils % 69.3 % (38.7-73.9); Platelet Count 494 T/CUMM (130-400); Red Blood Count 2.56 MC/CUMM (3.8-5.5); Red Cell Distribution Width 16.6 % (9.3-17.3); White Blood Count 13.4 T/CUMM (4-12)
[2021-01-09 04:37] LABS: Calcium 7.8 MG/DL (8.5-10.1); Osmolality,Calculated 303.3 MOS/KG (273-304); Potassium 4.3 MMOL/L (3.5-5.1)
[2021-01-09] MEDS: HEPARIN 5,000 UNIT/1 ML VIAL SUBCUT SCH ×3 (05:41→22:00)
[2021-01-09] MEDS: INSULIN REGULAR 100 UNIT/ML SUBCUT SCH ×4 (07:55→21:24)
[2021-01-09] MEDS ORDERED: INSULIN NPH 100 UNIT/ML SUBCUT SCH (08:00)
[2021-01-09] MEDS: ASPIRIN CHEW 81 MG TABLET PO SCH (08:26)
[2021-01-09] MEDS: amLODIPine 10 MG TABLET PO SCH (08:27)
[2021-01-09] MEDS: INSULIN NPH/REGULAR 70/30 100 UNIT/ML SUBCUT SCH ×2 (08:27→16:02)
[2021-01-09] MEDS: PANTOPRAZOLE 40 MG VIAL IV SCH (08:28)
[2021-01-09] MEDS: methylPREDNISolone SOD SUC 40 MG/1 ML VIAL IV SCH (08:28)
[2021-01-09] MEDS: ATORVASTATIN 40 MG TABLET PO SCH (21:25)
[2021-01-10] MEDS: VALPROIC ACID INJ 500 MG in SODIUM CHLORIDE 0.9% 100 ML IV SCH ×3 (00:56→16:45)
[2021-01-10] MEDS: ALBUTEROL/IPRATROPIUM 3 ML NEB RESP TX SCH ×4 (02:30→19:10)
[2021-01-10 05:39] LABS: Basophils % 0.2 % (0.0-0.8); Eosinophils # 0.1 10*3/uL (0.0-0.87); Eosinophils % 0.4 % (0.00-10.9); Hematocrit 24.6 VOL% (42.0-52.0); Hemoglobin 7.8 GM/DL (14.0-18.0); Immature Granulocytes % 1.3 %; Immature Granulocytes Absolute 0.17 #; Lymphocytes # 2.5 10*3/uL (1.4-4.0); Lymphocytes % 18.4 % (21.2-54.2); Mean Corpuscular HGB Conc 31.7 GM/DL (32-36); Mean Corpuscular Volume 93.5 FL (87-102); Mean Platelet Volume 10.8 FL (9.6-12.0); Monocytes % 10.3 % (1.7-12.7); Neutrophils % 69.4 % (38.7-73.9); Platelet Count 449 T/CUMM (130-400); Red Blood Count 2.63 MC/CUMM (3.8-5.5); Red Cell Distribution Width 16.4 % (9.3-17.3); White Blood Count 13.6 T/CUMM (4-12)
[2021-01-10 06:05] LABS: Calcium 8.3 MG/DL (8.5-10.1); Osmolality,Calculated 303.8 MOS/KG (273-304); Potassium 3.9 MMOL/L (3.5-5.1)
[2021-01-10] MEDS: HEPARIN 5,000 UNIT/1 ML VIAL SUBCUT SCH ×3 (06:27→21:40)
[2021-01-10] MEDS: amLODIPine 10 MG TABLET PO SCH (08:34)
[2021-01-10] MEDS: methylPREDNISolone SOD SUC 40 MG/1 ML VIAL IV SCH (08:35)
[2021-01-10] MEDS: ASPIRIN CHEW 81 MG TABLET PO SCH (08:35)
[2021-01-10] MEDS: PANTOPRAZOLE 40 MG VIAL IV SCH (08:35)
[2021-01-10] MEDS: INSULIN NPH/REGULAR 70/30 100 UNIT/ML SUBCUT SCH ×2 (08:36→17:27)
[2021-01-10] MEDS: INSULIN REGULAR 100 UNIT/ML SUBCUT SCH ×4 (08:37→21:40)
[2021-01-10] MEDS: hydrALAZINE 20 MG/1 ML VIAL IV PRN (20:58)
[2021-01-10] MEDS: ATORVASTATIN 40 MG TABLET PO SCH (20:58)
[2021-01-11] MEDS: ALBUTEROL/IPRATROPIUM 3 ML NEB RESP TX SCH ×4 (00:33→19:28)
[2021-01-11] MEDS: VALPROIC ACID INJ 750 MG in SODIUM CHLORIDE 0.9% 100 ML IV SCH ×3 (00:34→16:19)
[2021-01-11 04:40] LABS: Basophils % 0.2 % (0.0-0.8); Eosinophils # 0.1 10*3/uL (0.0-0.87); Eosinophils % 0.5 % (0.00-10.9); Hematocrit 24.9 VOL% (42.0-52.0); Hemoglobin 7.9 GM/DL (14.0-18.0); Immature Granulocytes % 1.2 %; Immature Granulocytes Absolute 0.16 #; Lymphocytes # 3.3 10*3/uL (1.4-4.0); Lymphocytes % 24.9 % (21.2-54.2); Mean Corpuscular HGB Conc 31.7 GM/DL (32-36); Mean Corpuscular Volume 92.6 FL (87-102); Mean Platelet Volume 10.4 FL (9.6-12.0); Monocytes % 8.4 % (1.7-12.7); NRBC # 0.02 10*3/uL; Neutrophils % 64.8 % (38.7-73.9); Platelet Count 382 T/CUMM (130-400); Red Blood Count 2.69 MC/CUMM (3.8-5.5); Red Cell Distribution Width 16.5 % (9.3-17.3); White Blood Count 13.2 T/CUMM (4-12)
[2021-01-11 05:00] LABS: Calcium 8.1 MG/DL (8.5-10.1); Osmolality,Calculated 298.8 MOS/KG (273-304)
[2021-01-11] MEDS: HEPARIN 5,000 UNIT/1 ML VIAL SUBCUT SCH ×3 (05:47→23:02)
[2021-01-11] MEDS: INSULIN REGULAR 100 UNIT/ML SUBCUT SCH ×5 (07:58→20:40)
[2021-01-11] MEDS: methylPREDNISolone SOD SUC 40 MG/1 ML VIAL IV SCH (08:05)
[2021-01-11] MEDS: amLODIPine 10 MG TABLET PO SCH (08:05)
[2021-01-11] MEDS: PANTOPRAZOLE 40 MG VIAL IV SCH (08:05)
[2021-01-11] MEDS: ASPIRIN CHEW 81 MG TABLET PO SCH (08:05)
[2021-01-11] MEDS: INSULIN NPH/REGULAR 70/30 100 UNIT/ML SUBCUT SCH ×2 (08:40→16:19)
[2021-01-11] MEDS: ACETAMINOPHEN 325 MG TABLET PO PRN (18:09)
[2021-01-11 18:59] LABS: Bilirubin,Urine Negative (Negative); Blood, Urine Negative (Negative); Glucose,Urine (UA) >=500 mg/dL (Negative); Ketones,Urine Negative (Negative); Mucus,Urine Occasional /LPF (Occasional); Nitrite,Urine Negative (Negative); Protein,Urine 100 MG/DL; RBC,Urine 28 /HPF (0-4); Squamous Epithelial Cell,Urine Occasional /HPF (0-10); Urine Appearance CLOUDY (Clear); Urine Color Straw (Yellow); Urine Specific Gravity 1.011 (1.001-1.035); Urine Urobilinogen < 2.0 EU/DL (0.2-1.0)
[2021-01-11] MEDS: ATORVASTATIN 40 MG TABLET PO SCH (20:41)
[2021-01-12] MEDS: VALPROIC ACID INJ 750 MG in SODIUM CHLORIDE 0.9% 100 ML IV SCH ×3 (00:13→16:38)
[2021-01-12] MEDS: ALBUTEROL/IPRATROPIUM 3 ML NEB RESP TX SCH ×4 (01:19→19:23)
[2021-01-12 04:03] LABS: Basophils % 0.3 % (0.0-0.8); Eosinophils % 0.3 % (0.00-10.9); Hematocrit 21.9 VOL% (42.0-52.0); Immature Granulocytes % 1.3 %; Immature Granulocytes Absolute 0.15 #; Lymphocytes # 2.7 10*3/uL (1.4-4.0); Lymphocytes % 22.9 % (21.2-54.2); Mean Corpuscular Volume 93.6 FL (87-102); Mean Platelet Volume 10.8 FL (9.6-12.0); Neutrophils % 66.2 % (38.7-73.9); Platelet Count 305 T/CUMM (130-400); Red Blood Count 2.34 MC/CUMM (3.8-5.5); Red Cell Distribution Width 16.5 % (9.3-17.3); White Blood Count 11.8 T/CUMM (4-12)
[2021-01-12 04:22] LABS: Albumin 1.4 G/DL (3.4-5.0); Bilirubin,Total 0.6 MG/DL (0.20-1.00); Osmolality,Calculated 305.6 MOS/KG (273-304); Potassium 4.1 MMOL/L (3.5-5.1); Total Protein 6.3 G/DL (6.4-8.2)
[2021-01-12] MEDS: HEPARIN 5,000 UNIT/1 ML VIAL SUBCUT SCH ×3 (06:00→23:26)
[2021-01-12] MEDS ORDERED: SODIUM CHLORIDE 0.9% 1,000 ML IV PRN (07:52)
[2021-01-12] MEDS: PANTOPRAZOLE 40 MG VIAL IV SCH ×2 (08:35→20:38)
[2021-01-12] MEDS: methylPREDNISolone SOD SUC 40 MG/1 ML VIAL IV SCH (08:38)
[2021-01-12] MEDS: ASPIRIN CHEW 81 MG TABLET PO SCH (08:40)
[2021-01-12] MEDS: INSULIN NPH/REGULAR 70/30 100 UNIT/ML SUBCUT SCH ×2 (08:40→16:38)
[2021-01-12] MEDS: amLODIPine 10 MG TABLET PO SCH (08:40)
[2021-01-12] MEDS: INSULIN REGULAR 100 UNIT/ML SUBCUT SCH ×4 (08:40→20:38)
[2021-01-12] MEDS: LINEZOLID INJ 600 MG/300 ML PREMIX IV SCH ×2 (08:52→20:39)
[2021-01-12] MEDS: PIPERACILLIN/TAZOBACTAM 3,375 MG in SODIUM CHLORIDE 0.9% 100 ML IV SCH ×2 (08:52→16:39)
[2021-01-12] MEDS: hydrALAZINE 20 MG/1 ML VIAL IV PRN (10:37)
[2021-01-12 16:56] LABS: Hematocrit 28.7 VOL% (42.0-52.0); Hemoglobin 9.3 GM/DL (14.0-18.0)
[2021-01-12] MEDS: ATORVASTATIN 40 MG TABLET PO SCH (20:39)
[2021-01-13] MEDS: VALPROIC ACID INJ 750 MG in SODIUM CHLORIDE 0.9% 100 ML IV SCH ×3 (00:01→17:36)
[2021-01-13] MEDS: PIPERACILLIN/TAZOBACTAM 3,375 MG in SODIUM CHLORIDE 0.9% 100 ML IV SCH ×3 (00:01→17:37)
[2021-01-13] MEDS: ALBUTEROL/IPRATROPIUM 3 ML NEB RESP TX SCH ×4 (01:00→18:59)
[2021-01-13 04:07] LABS: Basophils % 0.2 % (0.0-0.8); Eosinophils % 0.4 % (0.00-10.9); Hematocrit 26.8 VOL% (42.0-52.0); Hemoglobin 8.4 GM/DL (14.0-18.0); Immature Granulocytes % 1.4 %; Immature Granulocytes Absolute 0.16 #; Lymphocytes # 2.9 10*3/uL (1.4-4.0); Mean Corpuscular HGB Conc 31.3 GM/DL (32-36); Mean Corpuscular Volume 93.4 FL (87-102); Mean Platelet Volume 10.6 FL (9.6-12.0); Monocytes % 8.2 % (1.7-12.7); Neutrophils % 63.8 % (38.7-73.9); Platelet Count 238 T/CUMM (130-400); Red Blood Count 2.87 MC/CUMM (3.8-5.5); Red Cell Distribution Width 15.9 % (9.3-17.3); White Blood Count 11.1 T/CUMM (4-12)
[2021-01-13 04:30] LABS: Alanine Aminotransferase 13 U/L (16-61); Albumin 1.4 G/DL (3.4-5.0); Alkaline Phosphatase 59 U/L (45-117); Aspartate Amino Transferase 13 U/L (0-37); Bilirubin,Total < 0.39 MG/DL (0.20-1.00); Blood Urea Nitrogen 44 MG/DL (7-18); Carbon Dioxide 29 MMOL/L (21-32); Estimated Glom Filtration Rate 41 ML/MIN; Glucose 105 MG/DL (74-106); Osmolality,Calculated 300.6 MOS/KG (273-304); Potassium 4.2 MMOL/L (3.5-5.1); Sodium 146 MMOL/L (136-145); Total Protein 6.5 G/DL (6.4-8.2)
[2021-01-13] MEDS: HEPARIN 5,000 UNIT/1 ML VIAL SUBCUT SCH ×3 (06:27→22:20)
[2021-01-13] MEDS: hydrALAZINE 25 MG TABLET PO SCH ×3 (08:45→21:41)
[2021-01-13] MEDS: methylPREDNISolone SOD SUC 40 MG/1 ML VIAL IV SCH (08:45)
[2021-01-13] MEDS: ASPIRIN CHEW 81 MG TABLET PO SCH (08:45)
[2021-01-13] MEDS: amLODIPine 10 MG TABLET PO SCH (08:45)
[2021-01-13] MEDS: INSULIN REGULAR 100 UNIT/ML SUBCUT SCH ×4 (08:46→21:41)
[2021-01-13] MEDS: LINEZOLID INJ 600 MG/300 ML PREMIX IV SCH ×2 (08:46→21:42)
[2021-01-13] MEDS: PANTOPRAZOLE 40 MG VIAL IV SCH ×2 (08:47→21:42)
[2021-01-13] MEDS: INSULIN NPH/REGULAR 70/30 100 UNIT/ML SUBCUT SCH ×2 (09:01→17:36)
[2021-01-13] MEDS: ATORVASTATIN 40 MG TABLET PO SCH (21:41)
[2021-01-14] MEDS: ALBUTEROL/IPRATROPIUM 3 ML NEB RESP TX SCH ×4 (01:00→20:15)
[2021-01-14] MEDS: VALPROIC ACID INJ 750 MG in SODIUM CHLORIDE 0.9% 100 ML IV SCH ×3 (01:10→16:54)
[2021-01-14] MEDS: PIPERACILLIN/TAZOBACTAM 3,375 MG in SODIUM CHLORIDE 0.9% 100 ML IV SCH ×3 (01:10→17:55)
[2021-01-14 05:35] LABS: Basophils % 0.3 % (0.0-0.8); Eosinophils # 0.1 10*3/uL (0.0-0.87); Eosinophils % 0.6 % (0.00-10.9); Hematocrit 27.7 VOL% (42.0-52.0); Hemoglobin 8.8 GM/DL (14.0-18.0); Immature Granulocytes % 1.1 %; Immature Granulocytes Absolute 0.11 #; Lymphocytes # 2.5 10*3/uL (1.4-4.0); Lymphocytes % 26.2 % (21.2-54.2); Mean Corpuscular HGB Conc 31.8 GM/DL (32-36); Mean Corpuscular Volume 93.9 FL (87-102); Mean Platelet Volume 11.1 FL (9.6-12.0); Monocytes % 7.9 % (1.7-12.7); Neutrophils % 63.9 % (38.7-73.9); Platelet Count 199 T/CUMM (130-400); Red Blood Count 2.95 MC/CUMM (3.8-5.5); Red Cell Distribution Width 15.9 % (9.3-17.3); White Blood Count 9.6 T/CUMM (4-12)
[2021-01-14 05:56] LABS: Albumin 1.4 G/DL (3.4-5.0); Bilirubin,Total 0.6 MG/DL (0.20-1.00); Calcium 8.4 MG/DL (8.5-10.1); Osmolality,Calculated 293.3 MOS/KG (273-304); Potassium 4.4 MMOL/L (3.5-5.1); Total Protein 6.5 G/DL (6.4-8.2)
[2021-01-14] MEDS: HEPARIN 5,000 UNIT/1 ML VIAL SUBCUT SCH ×3 (06:28→22:41)
[2021-01-14] MEDS: PANTOPRAZOLE 40 MG VIAL IV SCH ×2 (08:15→23:58)
[2021-01-14] MEDS: amLODIPine 10 MG TABLET PO SCH (08:15)
[2021-01-14] MEDS: SODIUM CHLORIDE 0.45% 1,000 ML IV SCH ×2 (08:15→23:31)
[2021-01-14] MEDS: ASPIRIN CHEW 81 MG TABLET PO SCH (08:15)
[2021-01-14] MEDS: hydrALAZINE 25 MG TABLET PO SCH ×3 (08:15→22:40)
[2021-01-14] MEDS: LINEZOLID INJ 600 MG/300 ML PREMIX IV SCH ×2 (08:16→22:41)
[2021-01-14] MEDS: methylPREDNISolone SOD SUC 40 MG/1 ML VIAL IV SCH (08:16)
[2021-01-14] MEDS: INSULIN NPH/REGULAR 70/30 100 UNIT/ML SUBCUT SCH ×2 (08:57→16:30)
[2021-01-14] MEDS: INSULIN REGULAR 100 UNIT/ML SUBCUT SCH ×4 (08:57→22:02)
[2021-01-14] MEDS: ATORVASTATIN 40 MG TABLET PO SCH (22:40)
[2021-01-15] MEDS: VALPROIC ACID INJ 750 MG in SODIUM CHLORIDE 0.9% 100 ML IV SCH ×3 (00:20→16:34)
[2021-01-15] MEDS: ALBUTEROL/IPRATROPIUM 3 ML NEB RESP TX SCH ×4 (00:52→19:29)
[2021-01-15] MEDS: PIPERACILLIN/TAZOBACTAM 3,375 MG in SODIUM CHLORIDE 0.9% 100 ML IV SCH ×3 (03:17→18:16)
[2021-01-15 05:21] LABS: Hemoglobin 9.6 GM/DL (14.0-18.0); Red Blood Count 3.31 MC/CUMM (3.8-5.5); White Blood Count 11.9 T/CUMM (4-12)
[2021-01-15 05:22] LABS: Basophils % 0.2 % (0.0-0.8); Eosinophils # 0.1 10*3/uL (0.0-0.87); Eosinophils % 0.6 % (0.00-10.9); Immature Granulocytes % 1.3 %; Immature Granulocytes Absolute 0.16 #; Lymphocytes # 2.5 10*3/uL (1.4-4.0); Lymphocytes % 20.9 % (21.2-54.2); Mean Corpuscular Volume 93.7 FL (87-102); Mean Platelet Volume 11.2 FL (9.6-12.0); Monocytes % 7.9 % (1.7-12.7); Neutrophils % 69.1 % (38.7-73.9); Platelet Count 180 T/CUMM (130-400); Red Cell Distribution Width 15.8 % (9.3-17.3)
[2021-01-15 05:58] LABS: Calcium 8.5 MG/DL (8.5-10.1); Osmolality,Calculated 292.7 MOS/KG (273-304); Potassium 4.4 MMOL/L (3.5-5.1)
[2021-01-15] MEDS: HEPARIN 5,000 UNIT/1 ML VIAL SUBCUT SCH ×3 (06:16→22:27)
[2021-01-15] MEDS: amLODIPine 10 MG TABLET PO SCH (08:18)
[2021-01-15] MEDS: hydrALAZINE 25 MG TABLET PO SCH ×3 (08:18→22:27)
[2021-01-15] MEDS: INSULIN NPH/REGULAR 70/30 100 UNIT/ML SUBCUT SCH ×4 (08:19→16:31)
[2021-01-15] MEDS: ASPIRIN CHEW 81 MG TABLET PO SCH (08:19)
[2021-01-15] MEDS: INSULIN REGULAR 100 UNIT/ML SUBCUT SCH ×6 (08:19→22:00)
[2021-01-15] MEDS: PANTOPRAZOLE 40 MG VIAL IV SCH ×3 (08:20→22:29)
[2021-01-15] MEDS: methylPREDNISolone SOD SUC 40 MG/1 ML VIAL IV SCH ×3 (08:21→09:01)
[2021-01-15] MEDS: LINEZOLID INJ 600 MG/300 ML PREMIX IV SCH ×2 (09:43→22:26)
[2021-01-15] MEDS: hydrALAZINE 20 MG/1 ML VIAL IV PRN (13:15)
[2021-01-15] MEDS: ATORVASTATIN 40 MG TABLET PO SCH (22:26)
[2021-01-16] MEDS: ALBUTEROL/IPRATROPIUM 3 ML NEB RESP TX SCH ×4 (01:26→19:31)
[2021-01-16] MEDS: VALPROIC ACID INJ 750 MG in SODIUM CHLORIDE 0.9% 100 ML IV SCH ×3 (01:35→16:44)
[2021-01-16] MEDS: PIPERACILLIN/TAZOBACTAM 3,375 MG in SODIUM CHLORIDE 0.9% 100 ML IV SCH ×3 (04:00→18:25)
[2021-01-16] MEDS: HEPARIN 5,000 UNIT/1 ML VIAL SUBCUT SCH ×3 (06:15→22:34)
[2021-01-16] MEDS ORDERED: BISACODYL 5 MG TABLET PO ONE (08:19)
[2021-01-16] MEDS: INSULIN NPH/REGULAR 70/30 100 UNIT/ML SUBCUT SCH (08:37)
[2021-01-16] MEDS: amLODIPine 10 MG TABLET PO SCH (08:37)
[2021-01-16] MEDS: INSULIN REGULAR 100 UNIT/ML SUBCUT SCH ×4 (08:37→22:16)
[2021-01-16] MEDS: ASPIRIN CHEW 81 MG TABLET PO SCH (08:37)
[2021-01-16] MEDS: hydrALAZINE 25 MG TABLET PO SCH ×3 (08:37→22:30)
[2021-01-16] MEDS: methylPREDNISolone SOD SUC 40 MG/1 ML VIAL IV SCH (08:38)
[2021-01-16] MEDS: PANTOPRAZOLE 40 MG VIAL IV SCH ×2 (08:38→22:34)
[2021-01-16 08:49] LABS: Basophils % 0.2 % (0.0-0.8); Eosinophils # 0.1 10*3/uL (0.0-0.87); Eosinophils % 0.4 % (0.00-10.9); Hematocrit 30.1 VOL% (42.0-52.0); Hemoglobin 9.7 GM/DL (14.0-18.0); Immature Granulocytes % 0.8 %; Lymphocytes # 2.5 10*3/uL (1.4-4.0); Lymphocytes % 21.1 % (21.2-54.2); Mean Corpuscular HGB Conc 32.2 GM/DL (32-36); Mean Corpuscular Volume 93.2 FL (87-102); Mean Platelet Volume 10.5 FL (9.6-12.0); Monocytes % 7.9 % (1.7-12.7); Neutrophils % 69.6 % (38.7-73.9); Platelet Count 135 T/CUMM (130-400); Red Blood Count 3.23 MC/CUMM (3.8-5.5); Red Cell Distribution Width 15.9 % (9.3-17.3); White Blood Count 11.8 T/CUMM (4-12)
[2021-01-16 09:11] LABS: Alanine Aminotransferase 12 U/L (16-61); Albumin 1.7 G/DL (3.4-5.0); Alkaline Phosphatase 64 U/L (45-117); Aspartate Amino Transferase 13 U/L (0-37); Bilirubin,Total < 0.39 MG/DL (0.20-1.00); Blood Urea Nitrogen 39 MG/DL (7-18); Calcium 8.7 MG/DL (8.5-10.1); Carbon Dioxide 26 MMOL/L (21-32); Estimated Glom Filtration Rate 41 ML/MIN; Glucose 216 MG/DL (74-106); Osmolality,Calculated 294.4 MOS/KG (273-304); Potassium 4.3 MMOL/L (3.5-5.1); Sodium 140 MMOL/L (136-145); Total Protein 7.2 G/DL (6.4-8.2)
[2021-01-16] MEDS: POLYETHYLENE GLYCOL POWDER 17 GM PACK PO SCH (09:26)
[2021-01-16] MEDS: LINEZOLID INJ 600 MG/300 ML PREMIX IV SCH ×2 (09:58→22:29)
[2021-01-16] MEDS ORDERED: INSULIN NPH/REGULAR 70/30 100 UNIT/ML SUBCUT SCH (16:30)
[2021-01-16] MEDS: ATORVASTATIN 40 MG TABLET PO SCH (22:30)
[2021-01-17] MEDS: VALPROIC ACID INJ 750 MG in SODIUM CHLORIDE 0.9% 100 ML IV SCH ×3 (01:27→17:07)
[2021-01-17] MEDS: PIPERACILLIN/TAZOBACTAM 3,375 MG in SODIUM CHLORIDE 0.9% 100 ML IV SCH ×3 (03:29→18:26)
[2021-01-17 05:23] LABS: Basophils % 0.2 % (0.0-0.8); Eosinophils % 0.3 % (0.00-10.9); Hematocrit 29.5 VOL% (42.0-52.0); Hemoglobin 9.4 GM/DL (14.0-18.0); Immature Granulocytes % 1.1 %; Immature Granulocytes Absolute 0.14 #; Lymphocytes % 16.2 % (21.2-54.2); Mean Corpuscular HGB Conc 31.9 GM/DL (32-36); Mean Corpuscular Volume 93.7 FL (87-102); Mean Platelet Volume 11.6 FL (9.6-12.0); Monocytes % 9.1 % (1.7-12.7); Neutrophils % 73.1 % (38.7-73.9); Platelet Count 125 T/CUMM (130-400); Red Blood Count 3.15 MC/CUMM (3.8-5.5); White Blood Count 12.5 T/CUMM (4-12)
[2021-01-17 05:47] LABS: Albumin 1.6 G/DL (3.4-5.0); Bilirubin,Total 0.7 MG/DL (0.20-1.00); Calcium 8.4 MG/DL (8.5-10.1); Osmolality,Calculated 291.1 MOS/KG (273-304); Potassium 4.1 MMOL/L (3.5-5.1)
[2021-01-17] MEDS: HEPARIN 5,000 UNIT/1 ML VIAL SUBCUT SCH ×3 (06:22→22:23)
[2021-01-17] MEDS ORDERED: INSULIN NPH/REGULAR 70/30 100 UNIT/ML SUBCUT SCH (07:30)
[2021-01-17] MEDS: INSULIN REGULAR 100 UNIT/ML SUBCUT SCH ×4 (07:51→22:23)
[2021-01-17] MEDS: ALBUTEROL/IPRATROPIUM 3 ML NEB RESP TX SCH ×7 (08:08→23:35)
[2021-01-17] MEDS: hydrALAZINE 25 MG TABLET PO SCH ×3 (09:12→22:22)
[2021-01-17] MEDS: POLYETHYLENE GLYCOL POWDER 17 GM PACK PO SCH (09:12)
[2021-01-17] MEDS: ASPIRIN CHEW 81 MG TABLET PO SCH (09:12)
[2021-01-17] MEDS: methylPREDNISolone SOD SUC 40 MG/1 ML VIAL IV SCH (09:12)
[2021-01-17] MEDS: amLODIPine 10 MG TABLET PO SCH (09:12)
[2021-01-17] MEDS: PANTOPRAZOLE 40 MG VIAL IV SCH ×2 (09:13→22:23)
[2021-01-17] MEDS: LINEZOLID INJ 600 MG/300 ML PREMIX IV SCH ×2 (09:13→22:21)
[2021-01-17] MEDS ORDERED: INSULIN NPH 100 UNIT/ML SUBCUT SCH (17:00)
[2021-01-17] MEDS: ATORVASTATIN 40 MG TABLET PO SCH (22:22)
[2021-01-18] MEDS: VALPROIC ACID INJ 750 MG in SODIUM CHLORIDE 0.9% 100 ML IV SCH ×3 (00:34→17:48)
[2021-01-18] MEDS: ALBUTEROL/IPRATROPIUM 3 ML NEB RESP TX SCH ×6 (03:38→23:30)
[2021-01-18] MEDS: PIPERACILLIN/TAZOBACTAM 3,375 MG in SODIUM CHLORIDE 0.9% 100 ML IV SCH ×2 (04:40→10:02)
[2021-01-18 05:03] LABS: Basophils % 0.2 % (0.0-0.8); Eosinophils # 0.1 10*3/uL (0.0-0.87); Eosinophils % 0.3 % (0.00-10.9); Hematocrit 29.9 VOL% (42.0-52.0); Hemoglobin 9.5 GM/DL (14.0-18.0); Immature Granulocytes % 1.2 %; Immature Granulocytes Absolute 0.17 #; Lymphocytes # 2.1 10*3/uL (1.4-4.0); Lymphocytes % 14.3 % (21.2-54.2); Mean Corpuscular HGB Conc 31.8 GM/DL (32-36); Mean Corpuscular Volume 92.6 FL (87-102); Mean Platelet Volume 11.2 FL (9.6-12.0); Monocytes % 9.4 % (1.7-12.7); Neutrophils % 74.6 % (38.7-73.9); Platelet Count 106 T/CUMM (130-400); Red Blood Count 3.23 MC/CUMM (3.8-5.5); Red Cell Distribution Width 15.8 % (9.3-17.3); White Blood Count 14.3 T/CUMM (4-12)
[2021-01-18 05:27] LABS: Albumin 1.7 G/DL (3.4-5.0); Bilirubin,Total 0.6 MG/DL (0.20-1.00); Calcium 8.4 MG/DL (8.5-10.1); Osmolality,Calculated 284.3 MOS/KG (273-304); Potassium 3.5 MMOL/L (3.5-5.1); Total Protein 7.2 G/DL (6.4-8.2)
[2021-01-18] MEDS: INSULIN REGULAR 100 UNIT/ML SUBCUT SCH ×3 (07:49→17:05)
[2021-01-18] MEDS: HEPARIN 5,000 UNIT/1 ML VIAL SUBCUT SCH ×3 (09:48→22:18)
[2021-01-18] MEDS: PANTOPRAZOLE 40 MG VIAL IV SCH ×2 (09:52→22:18)
[2021-01-18] MEDS: ASPIRIN CHEW 81 MG TABLET PO SCH (09:52)
[2021-01-18] MEDS: POLYETHYLENE GLYCOL POWDER 17 GM PACK PO SCH (09:52)
[2021-01-18] MEDS: amLODIPine 10 MG TABLET PO SCH (09:52)
[2021-01-18] MEDS: INSULIN NPH 100 UNIT/ML SUBCUT SCH ×2 (09:53→17:06)
[2021-01-18] MEDS: methylPREDNISolone SOD SUC 40 MG/1 ML VIAL IV SCH (09:53)
[2021-01-18] MEDS: hydrALAZINE 25 MG TABLET PO SCH ×3 (09:53→22:17)
[2021-01-18] MEDS: LINEZOLID INJ 600 MG/300 ML PREMIX IV SCH (10:15)
[2021-01-18] MEDS: AMOXICILLIN/CLAV 500 MG TABLET PO SCH (17:47)
[2021-01-18] MEDS: ATORVASTATIN 40 MG TABLET PO SCH (22:17)
[2021-01-19] MEDS: VALPROIC ACID INJ 750 MG in SODIUM CHLORIDE 0.9% 100 ML IV SCH ×3 (01:15→17:28)
[2021-01-19] MEDS: ALBUTEROL/IPRATROPIUM 3 ML NEB RESP TX SCH ×6 (04:17→23:48)
[2021-01-19] MEDS: HEPARIN 5,000 UNIT/1 ML VIAL SUBCUT SCH ×3 (05:30→22:34)
[2021-01-19 06:36] LABS: Basophils % 0.2 % (0.0-0.8); Eosinophils # 0.1 10*3/uL (0.0-0.87); Eosinophils % 0.8 % (0.00-10.9); Hematocrit 27.3 VOL% (42.0-52.0); Hemoglobin 8.5 GM/DL (14.0-18.0); Immature Granulocytes Absolute 0.11 #; Lymphocytes % 17.1 % (21.2-54.2); Mean Corpuscular HGB Conc 31.1 GM/DL (32-36); Mean Corpuscular Volume 94.8 FL (87-102); Mean Platelet Volume 11.1 FL (9.6-12.0); Monocytes % 9.9 % (1.7-12.7); Red Blood Count 2.88 MC/CUMM (3.8-5.5); Red Cell Distribution Width 15.9 % (9.3-17.3); White Blood Count 11.6 T/CUMM (4-12)
[2021-01-19 06:58] LABS: Albumin 1.5 G/DL (3.4-5.0); Bilirubin,Total 1.2 MG/DL (0.20-1.00); Calcium 8.4 MG/DL (8.5-10.1); Osmolality,Calculated 297.8 MOS/KG (273-304); Potassium 3.8 MMOL/L (3.5-5.1); Total Protein 6.7 G/DL (6.4-8.2)
[2021-01-19 07:00] LABS: Platelet Count 89 T/CUMM (130-400)
[2021-01-19 07:08] LABS: Platelet Estimate Decreased
[2021-01-19 07:09] LABS: Anisocytosis 2+; Macrocytosis 1+
[2021-01-19] MEDS: hydrALAZINE 25 MG TABLET PO SCH ×3 (10:22→21:28)
[2021-01-19] MEDS: predniSONE 10 MG TABLET PO SCH (10:22)
[2021-01-19] MEDS: INSULIN NPH 100 UNIT/ML SUBCUT SCH ×2 (10:22→17:28)
[2021-01-19] MEDS: PANTOPRAZOLE 40 MG VIAL IV SCH ×3 (10:23→21:38)
[2021-01-19] MEDS: ASPIRIN CHEW 81 MG TABLET PO SCH (10:23)
[2021-01-19] MEDS: AMOXICILLIN/CLAV 500 MG TABLET PO SCH ×2 (10:23→17:28)
[2021-01-19] MEDS: amLODIPine 10 MG TABLET PO SCH (10:23)
[2021-01-19] MEDS: POLYETHYLENE GLYCOL POWDER 17 GM PACK PO SCH (10:23)
[2021-01-19] MEDS: INSULIN REGULAR 100 UNIT/ML SUBCUT SCH ×3 (10:24→17:28)
[2021-01-19] MEDS: ATORVASTATIN 40 MG TABLET PO SCH (21:27)
[2021-01-20] MEDS: VALPROIC ACID INJ 750 MG in SODIUM CHLORIDE 0.9% 100 ML IV SCH ×3 (01:45→17:52)
[2021-01-20] MEDS: ALBUTEROL/IPRATROPIUM 3 ML NEB RESP TX SCH ×4 (03:20→19:26)
[2021-01-20] MEDS: HEPARIN 5,000 UNIT/1 ML VIAL SUBCUT SCH ×3 (06:43→22:24)
[2021-01-20 06:53] LABS: Basophils % 0.1 % (0.0-0.8); Eosinophils # 0.1 10*3/uL (0.0-0.87); Eosinophils % 0.7 % (0.00-10.9); Hematocrit 25.8 VOL% (42.0-52.0); Hemoglobin 8.1 GM/DL (14.0-18.0); Immature Granulocytes % 0.8 %; Immature Granulocytes Absolute 0.09 #; Lymphocytes # 2.2 10*3/uL (1.4-4.0); Lymphocytes % 19.7 % (21.2-54.2); Mean Corpuscular HGB Conc 31.4 GM/DL (32-36); Mean Corpuscular Volume 93.5 FL (87-102); Mean Platelet Volume 10.5 FL (9.6-12.0); Monocytes % 10.3 % (1.7-12.7); Neutrophils % 68.4 % (38.7-73.9); Platelet Count 84 T/CUMM (130-400); Red Blood Count 2.76 MC/CUMM (3.8-5.5); Red Cell Distribution Width 15.9 % (9.3-17.3); White Blood Count 11.1 T/CUMM (4-12)
[2021-01-20 07:12] LABS: Alanine Aminotransferase 10 U/L (16-61); Albumin 1.6 G/DL (3.4-5.0); Alkaline Phosphatase 56 U/L (45-117); Aspartate Amino Transferase 10 U/L (0-37); Bilirubin,Total < 0.39 MG/DL (0.20-1.00); Blood Urea Nitrogen 26 MG/DL (7-18); Calcium 8.5 MG/DL (8.5-10.1); Carbon Dioxide 25 MMOL/L (21-32); Estimated Glom Filtration Rate 45 ML/MIN; Glucose 97 MG/DL (74-106); Osmolality,Calculated 292.7 MOS/KG (273-304); Potassium 3.8 MMOL/L (3.5-5.1); Sodium 145 MMOL/L (136-145); Total Protein 6.7 G/DL (6.4-8.2)
[2021-01-20 07:15] LABS: Hypochromia 1+; Microcytosis 1+; Platelet Estimate Decreased
[2021-01-20] MEDS: AMOXICILLIN/CLAV 500 MG TABLET PO SCH ×2 (12:10→17:52)
[2021-01-20] MEDS: INSULIN NPH 100 UNIT/ML SUBCUT SCH ×2 (12:10→17:45)
[2021-01-20] MEDS: INSULIN REGULAR 100 UNIT/ML SUBCUT SCH ×3 (12:10→17:45)
[2021-01-20] MEDS: hydrALAZINE 25 MG TABLET PO SCH ×3 (12:10→20:09)
[2021-01-20] MEDS: ASPIRIN CHEW 81 MG TABLET PO SCH (12:11)
[2021-01-20] MEDS: amLODIPine 10 MG TABLET PO SCH (12:11)
[2021-01-20] MEDS: POLYETHYLENE GLYCOL POWDER 17 GM PACK PO SCH (12:11)
[2021-01-20] MEDS: PANTOPRAZOLE 40 MG VIAL IV SCH ×2 (12:11→20:16)
[2021-01-20] MEDS: predniSONE 10 MG TABLET PO SCH (12:11)
[2021-01-20] MEDS: ATORVASTATIN 40 MG TABLET PO SCH (20:09)
[2021-01-21] MEDS: ALBUTEROL/IPRATROPIUM 3 ML NEB RESP TX SCH ×6 (00:28→19:22)
[2021-01-21] MEDS: VALPROIC ACID INJ 750 MG in SODIUM CHLORIDE 0.9% 100 ML IV SCH ×3 (01:45→17:50)
[2021-01-21] MEDS: HEPARIN 5,000 UNIT/1 ML VIAL SUBCUT SCH ×3 (06:07→22:45)
[2021-01-21 06:09] LABS: Basophils % 0.3 % (0.0-0.8); Eosinophils # 0.1 10*3/uL (0.0-0.87); Eosinophils % 0.4 % (0.00-10.9); Hematocrit 28.4 VOL% (42.0-52.0); Hemoglobin 9.1 GM/DL (14.0-18.0); Immature Granulocytes Absolute 0.14 #; Lymphocytes % 14.9 % (21.2-54.2); Mean Platelet Volume 10.6 FL (9.6-12.0); Monocytes % 11.6 % (1.7-12.7); Neutrophils % 71.8 % (38.7-73.9); Platelet Count 82 T/CUMM (130-400); Red Blood Count 3.02 MC/CUMM (3.8-5.5); Red Cell Distribution Width 15.9 % (9.3-17.3); White Blood Count 13.4 T/CUMM (4-12)
[2021-01-21 06:29] LABS: Platelet Estimate Decreased
[2021-01-21 06:32] LABS: Albumin 1.6 G/DL (3.4-5.0); Bilirubin,Total 0.5 MG/DL (0.20-1.00); Calcium 8.6 MG/DL (8.5-10.1); Osmolality,Calculated 292.7 MOS/KG (273-304); Potassium 3.8 MMOL/L (3.5-5.1)
[2021-01-21] MEDS: PANTOPRAZOLE 40 MG VIAL IV SCH ×2 (10:00→21:14)
[2021-01-21] MEDS: predniSONE 10 MG TABLET PO SCH (10:00)
[2021-01-21] MEDS: hydrALAZINE 25 MG TABLET PO SCH ×3 (10:00→21:14)
[2021-01-21] MEDS: amLODIPine 10 MG TABLET PO SCH (10:00)
[2021-01-21] MEDS: POLYETHYLENE GLYCOL POWDER 17 GM PACK PO SCH (10:00)
[2021-01-21] MEDS: ASPIRIN CHEW 81 MG TABLET PO SCH (10:00)
[2021-01-21] MEDS: INSULIN REGULAR 100 UNIT/ML SUBCUT SCH ×3 (10:01→17:49)
[2021-01-21] MEDS: AMOXICILLIN/CLAV 500 MG TABLET PO SCH ×2 (10:01→17:49)
[2021-01-21] MEDS: INSULIN NPH 100 UNIT/ML SUBCUT SCH ×2 (10:01→17:50)
[2021-01-21] MEDS: ATORVASTATIN 40 MG TABLET PO SCH (21:14)
[2021-01-22] MEDS: ALBUTEROL/IPRATROPIUM 3 ML NEB RESP TX SCH ×6 (00:39→19:44)
[2021-01-22] MEDS: VALPROIC ACID INJ 750 MG in SODIUM CHLORIDE 0.9% 100 ML IV SCH ×3 (01:44→17:38)
[2021-01-22] MEDS: HEPARIN 5,000 UNIT/1 ML VIAL SUBCUT SCH ×3 (03:26→17:38)
[2021-01-22 06:22] LABS: Basophils % 0.2 % (0.0-0.8); Eosinophils # 0.1 10*3/uL (0.0-0.87); Eosinophils % 0.9 % (0.00-10.9); Hematocrit 25.9 VOL% (42.0-52.0); Hemoglobin 8.1 GM/DL (14.0-18.0); Immature Granulocytes % 1.1 %; Immature Granulocytes Absolute 0.12 #; Lymphocytes # 2.2 10*3/uL (1.4-4.0); Lymphocytes % 19.4 % (21.2-54.2); Mean Corpuscular HGB Conc 31.3 GM/DL (32-36); Mean Corpuscular Volume 95.2 FL (87-102); Mean Platelet Volume 10.2 FL (9.6-12.0); Monocytes % 10.4 % (1.7-12.7); Red Blood Count 2.72 MC/CUMM (3.8-5.5); Red Cell Distribution Width 16.2 % (9.3-17.3); White Blood Count 11.1 T/CUMM (4-12)
[2021-01-22 06:46] LABS: Platelet Count 100 T/CUMM (130-400)
[2021-01-22 06:47] LABS: Alanine Aminotransferase < 9 U/L (16-61); Albumin 1.6 G/DL (3.4-5.0); Alkaline Phosphatase 62 U/L (45-117); Aspartate Amino Transferase 10 U/L (0-37); Bilirubin,Total < 0.39 MG/DL (0.20-1.00); Blood Urea Nitrogen 25 MG/DL (7-18); Calcium 8.6 MG/DL (8.5-10.1); Carbon Dioxide 24 MMOL/L (21-32); Estimated Glom Filtration Rate 47 ML/MIN; Glucose 221 MG/DL (74-106); Osmolality,Calculated 293.1 MOS/KG (273-304); Potassium 4.2 MMOL/L (3.5-5.1); Sodium 142 MMOL/L (136-145); Total Protein 6.8 G/DL (6.4-8.2)
[2021-01-22] MEDS: INSULIN NPH 100 UNIT/ML SUBCUT SCH ×2 (08:20→16:52)
[2021-01-22] MEDS: INSULIN REGULAR 100 UNIT/ML SUBCUT SCH ×3 (08:20→16:52)
[2021-01-22] MEDS: predniSONE 10 MG TABLET PO SCH (08:21)
[2021-01-22] MEDS: POLYETHYLENE GLYCOL POWDER 17 GM PACK PO SCH (08:21)
[2021-01-22] MEDS: hydrALAZINE 25 MG TABLET PO SCH ×3 (08:21→21:50)
[2021-01-22] MEDS: ASPIRIN CHEW 81 MG TABLET PO SCH (08:21)
[2021-01-22] MEDS: AMOXICILLIN/CLAV 500 MG TABLET PO SCH ×2 (08:21→16:52)
[2021-01-22] MEDS: PANTOPRAZOLE 40 MG VIAL IV SCH ×2 (08:21→21:50)
[2021-01-22] MEDS: amLODIPine 10 MG TABLET PO SCH (08:21)
[2021-01-22] MEDS: ATORVASTATIN 40 MG TABLET PO SCH (21:50)
[2021-01-23] MEDS: ALBUTEROL/IPRATROPIUM 3 ML NEB RESP TX SCH ×6 (00:26→19:35)
[2021-01-23] MEDS: HEPARIN 5,000 UNIT/1 ML VIAL SUBCUT SCH ×3 (01:20→19:16)
[2021-01-23] MEDS: VALPROIC ACID INJ 750 MG in SODIUM CHLORIDE 0.9% 100 ML IV SCH ×3 (01:20→17:34)
[2021-01-23 05:46] LABS: Basophils % 0.2 % (0.0-0.8); Eosinophils # 0.1 10*3/uL (0.0-0.87); Eosinophils % 1.1 % (0.00-10.9); Hematocrit 24.8 VOL% (42.0-52.0); Hemoglobin 7.9 GM/DL (14.0-18.0); Immature Granulocytes Absolute 0.08 #; Lymphocytes # 2.2 10*3/uL (1.4-4.0); Lymphocytes % 26.8 % (21.2-54.2); Mean Corpuscular HGB Conc 31.9 GM/DL (32-36); Mean Corpuscular Volume 96.1 FL (87-102); Mean Platelet Volume 10.1 FL (9.6-12.0); Monocytes % 9.2 % (1.7-12.7); Neutrophils % 61.7 % (38.7-73.9); Platelet Count 100 T/CUMM (130-400); Red Blood Count 2.58 MC/CUMM (3.8-5.5); Red Cell Distribution Width 16.5 % (9.3-17.3); White Blood Count 8.4 T/CUMM (4-12)
[2021-01-23 06:33] LABS: Calcium 8.8 MG/DL (8.5-10.1); Osmolality,Calculated 288.3 MOS/KG (273-304); Potassium 4.5 MMOL/L (3.5-5.1)
[2021-01-23] MEDS: AMOXICILLIN/CLAV 500 MG TABLET PO SCH ×2 (08:29→17:37)
[2021-01-23] MEDS: ASPIRIN CHEW 81 MG TABLET PO SCH (08:30)
[2021-01-23] MEDS: amLODIPine 10 MG TABLET PO SCH (08:30)
[2021-01-23] MEDS: hydrALAZINE 25 MG TABLET PO SCH ×3 (08:31→20:43)
[2021-01-23] MEDS: PANTOPRAZOLE 40 MG VIAL IV SCH ×2 (08:31→20:42)
[2021-01-23] MEDS: INSULIN NPH 100 UNIT/ML SUBCUT SCH ×2 (08:32→17:33)
[2021-01-23] MEDS: INSULIN REGULAR 100 UNIT/ML SUBCUT SCH ×3 (08:32→17:33)
[2021-01-23] MEDS: POLYETHYLENE GLYCOL POWDER 17 GM PACK PO SCH (09:12)
[2021-01-23] MEDS: ATORVASTATIN 40 MG TABLET PO SCH (20:44)
[2021-01-24] MEDS: ALBUTEROL/IPRATROPIUM 3 ML NEB RESP TX SCH ×6 (00:41→22:19)
[2021-01-24] MEDS: VALPROIC ACID INJ 750 MG in SODIUM CHLORIDE 0.9% 100 ML IV SCH ×3 (02:10→16:01)
[2021-01-24] MEDS: HEPARIN 5,000 UNIT/1 ML VIAL SUBCUT SCH ×3 (02:15→17:27)
[2021-01-24 06:34] LABS: Eosinophils # 0.1 10*3/uL (0.0-0.87); Eosinophils % 1.6 % (0.00-10.9); Hematocrit 27.4 VOL% (42.0-52.0); Hemoglobin 8.5 GM/DL (14.0-18.0); Immature Granulocytes % 1.3 %; Immature Granulocytes Absolute 0.11 #; Lymphocytes # 1.9 10*3/uL (1.4-4.0); Mean Corpuscular Volume 96.8 FL (87-102); Mean Platelet Volume 9.9 FL (9.6-12.0); Monocytes % 12.1 % (1.7-12.7); Platelet Count 120 T/CUMM (130-400); Red Blood Count 2.83 MC/CUMM (3.8-5.5); Red Cell Distribution Width 16.8 % (9.3-17.3); White Blood Count 8.5 T/CUMM (4-12)
[2021-01-24 06:54] LABS: Calcium 8.9 MG/DL (8.5-10.1); Osmolality,Calculated 290.1 MOS/KG (273-304); Potassium 4.5 MMOL/L (3.5-5.1)
[2021-01-24] MEDS: INSULIN REGULAR 100 UNIT/ML SUBCUT SCH ×3 (09:48→16:49)
[2021-01-24] MEDS: PANTOPRAZOLE 40 MG VIAL IV SCH ×2 (09:49→20:45)
[2021-01-24] MEDS: INSULIN NPH 100 UNIT/ML SUBCUT SCH ×2 (09:49→17:27)
[2021-01-24] MEDS: amLODIPine 10 MG TABLET PO SCH (09:50)
[2021-01-24] MEDS: hydrALAZINE 25 MG TABLET PO SCH ×3 (09:50→20:44)
[2021-01-24] MEDS: ASPIRIN CHEW 81 MG TABLET PO SCH (09:50)
[2021-01-24] MEDS: AMOXICILLIN/CLAV 500 MG TABLET PO SCH ×2 (10:02→16:01)
[2021-01-24] MEDS: POLYETHYLENE GLYCOL POWDER 17 GM PACK PO SCH (10:17)
[2021-01-24] MEDS: SKIN HEALING OINT (AQUAPHOR) 50 GM TUBE TOP SCH (16:01)
[2021-01-24] MEDS: ATORVASTATIN 40 MG TABLET PO SCH (20:44)
[2021-01-25] MEDS: ALBUTEROL/IPRATROPIUM 3 ML NEB RESP TX SCH ×6 (00:30→23:14)
[2021-01-25] MEDS: HEPARIN 5,000 UNIT/1 ML VIAL SUBCUT SCH ×3 (02:17→17:17)
[2021-01-25] MEDS: VALPROIC ACID INJ 750 MG in SODIUM CHLORIDE 0.9% 100 ML IV SCH ×3 (02:18→16:18)
[2021-01-25 07:03] LABS: Basophils % 0.2 % (0.0-0.8); Eosinophils # 0.1 10*3/uL (0.0-0.87); Eosinophils % 1.1 % (0.00-10.9); Hemoglobin 8.5 GM/DL (14.0-18.0); Immature Granulocytes % 0.7 %; Immature Granulocytes Absolute 0.07 #; Lymphocytes # 1.9 10*3/uL (1.4-4.0); Lymphocytes % 19.2 % (21.2-54.2); Mean Corpuscular HGB Conc 31.5 GM/DL (32-36); Mean Corpuscular Volume 94.7 FL (87-102); Mean Platelet Volume 9.7 FL (9.6-12.0); Monocytes % 14.2 % (1.7-12.7); Neutrophils % 64.6 % (38.7-73.9); Platelet Count 139 T/CUMM (130-400); Red Blood Count 2.85 MC/CUMM (3.8-5.5); Red Cell Distribution Width 16.8 % (9.3-17.3); White Blood Count 9.8 T/CUMM (4-12)
[2021-01-25] MEDS: INSULIN REGULAR 100 UNIT/ML SUBCUT SCH ×3 (07:23→16:16)
[2021-01-25] MEDS: INSULIN NPH 100 UNIT/ML SUBCUT SCH ×2 (07:24→16:30)
[2021-01-25 07:27] LABS: Calcium 8.5 MG/DL (8.5-10.1); Osmolality,Calculated 289.1 MOS/KG (273-304); Potassium 3.9 MMOL/L (3.5-5.1)
[2021-01-25] MEDS: hydrALAZINE 25 MG TABLET PO SCH ×3 (08:53→21:51)
[2021-01-25] MEDS: AMOXICILLIN/CLAV 500 MG TABLET PO SCH ×2 (08:53→16:18)
[2021-01-25] MEDS: POLYETHYLENE GLYCOL POWDER 17 GM PACK PO SCH (08:54)
[2021-01-25] MEDS: SKIN HEALING OINT (AQUAPHOR) 50 GM TUBE TOP SCH (08:54)
[2021-01-25] MEDS: PANTOPRAZOLE 40 MG VIAL IV SCH ×2 (08:54→21:51)
[2021-01-25] MEDS: ASPIRIN CHEW 81 MG TABLET PO SCH (08:54)
[2021-01-25] MEDS: amLODIPine 10 MG TABLET PO SCH (08:54)
[2021-01-25] MEDS: ATORVASTATIN 40 MG TABLET PO SCH (21:51)
[2021-01-26] MEDS: VALPROIC ACID INJ 750 MG in SODIUM CHLORIDE 0.9% 100 ML IV SCH ×3 (00:52→18:59)
[2021-01-26] MEDS: ALBUTEROL/IPRATROPIUM 3 ML NEB RESP TX SCH ×7 (03:16→23:38)
[2021-01-26] MEDS: HEPARIN 5,000 UNIT/1 ML VIAL SUBCUT SCH ×3 (03:45→19:00)
[2021-01-26] MEDS: ASPIRIN CHEW 81 MG TABLET PO SCH (08:36)
[2021-01-26] MEDS: amLODIPine 10 MG TABLET PO SCH (08:36)
[2021-01-26] MEDS: SKIN HEALING OINT (AQUAPHOR) 50 GM TUBE TOP SCH (08:37)
[2021-01-26] MEDS: POLYETHYLENE GLYCOL POWDER 17 GM PACK PO SCH (08:37)
[2021-01-26] MEDS: DOCUSATE SODIUM 100 MG CAPSULE PO PRN (08:37)
[2021-01-26] MEDS: PANTOPRAZOLE 40 MG VIAL IV SCH ×2 (08:38→21:22)
[2021-01-26] MEDS: hydrALAZINE 25 MG TABLET PO SCH ×2 (08:51→15:14)
[2021-01-26] MEDS: INSULIN NPH 100 UNIT/ML SUBCUT SCH ×2 (08:52→19:00)
[2021-01-26] MEDS: INSULIN REGULAR 100 UNIT/ML SUBCUT SCH ×3 (08:52→19:15)
[2021-01-26 09:43] LABS: Basophils % 0.1 % (0.0-0.8); Eosinophils # 0.1 10*3/uL (0.0-0.87); Eosinophils % 1.5 % (0.00-10.9); Hematocrit 26.7 VOL% (42.0-52.0); Hemoglobin 8.5 GM/DL (14.0-18.0); Immature Granulocytes % 0.9 %; Immature Granulocytes Absolute 0.08 #; Lymphocytes # 1.4 10*3/uL (1.4-4.0); Lymphocytes % 16.2 % (21.2-54.2); Mean Corpuscular HGB Conc 31.8 GM/DL (32-36); Mean Corpuscular Volume 95.4 FL (87-102); Mean Platelet Volume 9.4 FL (9.6-12.0); Monocytes % 14.1 % (1.7-12.7); Neutrophils % 67.2 % (38.7-73.9); Platelet Count 145 T/CUMM (130-400); Red Cell Distribution Width 16.8 % (9.3-17.3); White Blood Count 8.8 T/CUMM (4-12)
[2021-01-26 10:03] LABS: Calcium 8.7 MG/DL (8.5-10.1); Osmolality,Calculated 291.7 MOS/KG (273-304); Potassium 4.4 MMOL/L (3.5-5.1)
[2021-01-26] MEDS ORDERED: FUROSEMIDE 20 MG/2 ML VIAL IV ONE ×2 (18:31→21:00)
[2021-01-26] MEDS: AMOXICILLIN 500 MG CAPSULE PO SCH (21:22)
[2021-01-26] MEDS: ATORVASTATIN 40 MG TABLET PO SCH (21:22)
[2021-01-27] MEDS: VALPROIC ACID INJ 750 MG in SODIUM CHLORIDE 0.9% 100 ML IV SCH ×3 (00:31→16:30)
[2021-01-27] MEDS: HEPARIN 5,000 UNIT/1 ML VIAL SUBCUT SCH ×4 (01:27→17:58)
[2021-01-27] MEDS: ALBUTEROL/IPRATROPIUM 3 ML NEB RESP TX SCH ×6 (03:28→19:48)
[2021-01-27] MEDS: AMOXICILLIN 500 MG CAPSULE PO SCH ×3 (05:12→21:42)
[2021-01-27 06:54] LABS: Basophils % 0.3 % (0.0-0.8); Eosinophils # 0.2 10*3/uL (0.0-0.87); Eosinophils % 2.3 % (0.00-10.9); Hematocrit 27.7 VOL% (42.0-52.0); Hemoglobin 8.6 GM/DL (14.0-18.0); Immature Granulocytes % 0.9 %; Immature Granulocytes Absolute 0.07 #; Lymphocytes # 1.9 10*3/uL (1.4-4.0); Lymphocytes % 24.8 % (21.2-54.2); Mean Corpuscular Volume 96.5 FL (87-102); Mean Platelet Volume 9.8 FL (9.6-12.0); Monocytes % 13.1 % (1.7-12.7); Neutrophils % 58.6 % (38.7-73.9); Platelet Count 168 T/CUMM (130-400); Red Blood Count 2.87 MC/CUMM (3.8-5.5); White Blood Count 7.8 T/CUMM (4-12)
[2021-01-27 07:20] LABS: Calcium 8.8 MG/DL (8.5-10.1); Osmolality,Calculated 293.3 MOS/KG (273-304); Potassium 3.7 MMOL/L (3.5-5.1)
[2021-01-27] MEDS: INSULIN REGULAR 100 UNIT/ML SUBCUT SCH ×3 (08:15→17:59)
[2021-01-27] MEDS: PANTOPRAZOLE 40 MG VIAL IV SCH ×2 (08:15→21:41)
[2021-01-27] MEDS: ASPIRIN CHEW 81 MG TABLET PO SCH (08:16)
[2021-01-27] MEDS: INSULIN NPH 100 UNIT/ML SUBCUT SCH ×2 (08:16→17:58)
[2021-01-27] MEDS: SKIN HEALING OINT (AQUAPHOR) 50 GM TUBE TOP SCH (08:17)
[2021-01-27] MEDS: POLYETHYLENE GLYCOL POWDER 17 GM PACK PO SCH (08:17)
[2021-01-27] MEDS: amLODIPine 10 MG TABLET PO SCH (08:23)
[2021-01-27] MEDS: ATORVASTATIN 40 MG TABLET PO SCH (21:42)
[2021-01-28] MEDS: VALPROIC ACID INJ 750 MG in SODIUM CHLORIDE 0.9% 100 ML IV SCH ×2 (01:05→09:10)
[2021-01-28] MEDS: ALBUTEROL/IPRATROPIUM 3 ML NEB RESP TX SCH ×5 (01:14→20:53)
[2021-01-28] MEDS: HEPARIN 5,000 UNIT/1 ML VIAL SUBCUT SCH ×3 (02:24→17:19)
[2021-01-28] MEDS: AMOXICILLIN 500 MG CAPSULE PO SCH ×3 (05:35→23:35)
[2021-01-28 06:10] LABS: Basophils % 0.1 % (0.0-0.8); Eosinophils # 0.2 10*3/uL (0.0-0.87); Hematocrit 28.2 VOL% (42.0-52.0); Hemoglobin 8.7 GM/DL (14.0-18.0); Immature Granulocytes Absolute 0.08 #; Lymphocytes # 1.9 10*3/uL (1.4-4.0); Lymphocytes % 24.3 % (21.2-54.2); Mean Corpuscular HGB Conc 30.9 GM/DL (32-36); Mean Corpuscular Volume 97.6 FL (87-102); Mean Platelet Volume 9.8 FL (9.6-12.0); Monocytes % 11.9 % (1.7-12.7); Neutrophils % 59.7 % (38.7-73.9); Platelet Count 191 T/CUMM (130-400); Red Blood Count 2.89 MC/CUMM (3.8-5.5); Red Cell Distribution Width 16.9 % (9.3-17.3); White Blood Count 7.7 T/CUMM (4-12)
[2021-01-28 06:27] LABS: Calcium 8.5 MG/DL (8.5-10.1); Osmolality,Calculated 298.8 MOS/KG (273-304)
[2021-01-28] MEDS: INSULIN REGULAR 100 UNIT/ML SUBCUT SCH ×3 (09:09→15:56)
[2021-01-28] MEDS: ASPIRIN CHEW 81 MG TABLET PO SCH (09:09)
[2021-01-28] MEDS: POLYETHYLENE GLYCOL POWDER 17 GM PACK PO SCH (09:09)
[2021-01-28] MEDS: amLODIPine 10 MG TABLET PO SCH (09:09)
[2021-01-28] MEDS: INSULIN NPH 100 UNIT/ML SUBCUT SCH ×2 (09:10→17:19)
[2021-01-28] MEDS: PANTOPRAZOLE 40 MG VIAL IV SCH ×2 (09:10→23:34)
[2021-01-28] MEDS: SKIN HEALING OINT (AQUAPHOR) 50 GM TUBE TOP SCH (09:10)
[2021-01-28] MEDS: DIVALPROEX 250 MG TABLET PO SCH ×2 (15:55→23:34)
[2021-01-28] MEDS: levETIRAcetam 250 MG TABLET PO SCH (23:34)
[2021-01-28] MEDS: ATORVASTATIN 40 MG TABLET PO SCH (23:34)
[2021-01-29] MEDS: ALBUTEROL/IPRATROPIUM 3 ML NEB RESP TX SCH ×8 (00:25→23:28)
[2021-01-29] MEDS: HEPARIN 5,000 UNIT/1 ML VIAL SUBCUT SCH ×3 (02:48→17:19)
[2021-01-29] MEDS: AMOXICILLIN 500 MG CAPSULE PO SCH ×3 (05:09→21:29)
[2021-01-29] MEDS: INSULIN REGULAR 100 UNIT/ML SUBCUT SCH ×3 (10:26→17:19)
[2021-01-29] MEDS: ASPIRIN CHEW 81 MG TABLET PO SCH (10:26)
[2021-01-29] MEDS: SKIN HEALING OINT (AQUAPHOR) 50 GM TUBE TOP SCH (10:26)
[2021-01-29] MEDS: INSULIN NPH 100 UNIT/ML SUBCUT SCH ×2 (10:26→17:19)
[2021-01-29] MEDS: amLODIPine 10 MG TABLET PO SCH (10:27)
[2021-01-29] MEDS: PANTOPRAZOLE 40 MG VIAL IV SCH ×2 (10:27→21:28)
[2021-01-29] MEDS: POLYETHYLENE GLYCOL POWDER 17 GM PACK PO SCH (10:27)
[2021-01-29] MEDS: levETIRAcetam 250 MG TABLET PO SCH ×2 (10:27→21:28)
[2021-01-29] MEDS: DIVALPROEX 250 MG TABLET PO SCH ×3 (10:27→21:28)
[2021-01-29] MEDS: ATORVASTATIN 40 MG TABLET PO SCH (21:28)
[2021-01-30] MEDS: ALBUTEROL/IPRATROPIUM 3 ML NEB RESP TX SCH ×6 (03:28→23:22)
[2021-01-30] MEDS: amLODIPine 10 MG TABLET PO SCH (09:28)
[2021-01-30] MEDS: ASPIRIN CHEW 81 MG TABLET PO SCH (09:28)
[2021-01-30] MEDS: PANTOPRAZOLE 40 MG VIAL IV SCH ×2 (09:28→20:55)
[2021-01-30] MEDS: levETIRAcetam 250 MG TABLET PO SCH ×2 (09:28→20:55)
[2021-01-30] MEDS: SKIN HEALING OINT (AQUAPHOR) 50 GM TUBE TOP SCH (09:28)
[2021-01-30] MEDS: INSULIN NPH 100 UNIT/ML SUBCUT SCH ×2 (09:28→17:59)
[2021-01-30] MEDS: DIVALPROEX 250 MG TABLET PO SCH ×3 (09:28→22:55)
[2021-01-30] MEDS: INSULIN REGULAR 100 UNIT/ML SUBCUT SCH ×3 (09:28→15:34)
[2021-01-30] MEDS: HEPARIN 5,000 UNIT/1 ML VIAL SUBCUT SCH ×3 (11:19→17:59)
[2021-01-30 13:15] LABS: Calcium 9.1 MG/DL (8.5-10.1)
[2021-01-30 13:16] LABS: Potassium 3.8 MMOL/L (3.5-5.1)
[2021-01-30] MEDS: AMOXICILLIN 500 MG CAPSULE PO SCH ×3 (13:23→22:55)
[2021-01-30 13:30] LABS: Basophils % 0.2 % (0.0-0.8); Eosinophils # 0.2 10*3/uL (0.0-0.87); Eosinophils % 2.4 % (0.00-10.9); Hematocrit 28.2 VOL% (42.0-52.0); Hemoglobin 8.8 GM/DL (14.0-18.0); Immature Granulocytes Absolute 0.09 #; Lymphocytes # 1.8 10*3/uL (1.4-4.0); Lymphocytes % 20.9 % (21.2-54.2); Mean Corpuscular HGB Conc 31.2 GM/DL (32-36); Mean Corpuscular Volume 94.6 FL (87-102); Mean Platelet Volume 9.8 FL (9.6-12.0); Monocytes % 12.4 % (1.7-12.7); Neutrophils % 63.1 % (38.7-73.9); Platelet Count 254 T/CUMM (130-400); Red Blood Count 2.98 MC/CUMM (3.8-5.5); Red Cell Distribution Width 16.5 % (9.3-17.3); White Blood Count 8.6 T/CUMM (4-12)
[2021-01-30] MEDS: POLYETHYLENE GLYCOL POWDER 17 GM PACK PO SCH (14:08)
[2021-01-30] MEDS: ATORVASTATIN 40 MG TABLET PO SCH (20:55)
[2021-01-31] MEDS: ALBUTEROL/IPRATROPIUM 3 ML NEB RESP TX SCH ×6 (03:04→23:00)
[2021-01-31] MEDS: HEPARIN 5,000 UNIT/1 ML VIAL SUBCUT SCH ×3 (04:10→20:00)
[2021-01-31] MEDS: AMOXICILLIN 500 MG CAPSULE PO SCH ×3 (05:40→21:26)
[2021-01-31 06:35] LABS: Basophils % 0.4 % (0.0-0.8); Eosinophils # 0.3 10*3/uL (0.0-0.87); Eosinophils % 3.1 % (0.00-10.9); Hematocrit 28.1 VOL% (42.0-52.0); Hemoglobin 8.9 GM/DL (14.0-18.0); Immature Granulocytes % 1.3 %; Lymphocytes # 1.9 10*3/uL (1.4-4.0); Lymphocytes % 23.4 % (21.2-54.2); Mean Corpuscular HGB Conc 31.7 GM/DL (32-36); Mean Corpuscular Volume 96.2 FL (87-102); Mean Platelet Volume 9.9 FL (9.6-12.0); Monocytes % 10.2 % (1.7-12.7); Neutrophils % 61.6 % (38.7-73.9); Platelet Count 279 T/CUMM (130-400); Red Blood Count 2.92 MC/CUMM (3.8-5.5); Red Cell Distribution Width 16.6 % (9.3-17.3); White Blood Count 7.9 T/CUMM (4-12)
[2021-01-31 07:06] LABS: Eosinophils 3 % (0-10); Hypochromia 1+; Lymphocytes 22 % (20-55); Microcytosis 1+; Platelet Estimate Adequate; Segmented Neutrophils 72 % (50-85); Total Cells Counted 100
[2021-01-31 07:13] LABS: Calcium 8.8 MG/DL (8.5-10.1); Osmolality,Calculated 288.7 MOS/KG (273-304); Potassium 4.5 MMOL/L (3.5-5.1)
[2021-01-31] MEDS: INSULIN REGULAR 100 UNIT/ML SUBCUT SCH ×3 (08:39→18:53)
[2021-01-31] MEDS: INSULIN NPH 100 UNIT/ML SUBCUT SCH ×2 (08:39→19:28)
[2021-01-31] MEDS: POLYETHYLENE GLYCOL POWDER 17 GM PACK PO SCH ×2 (08:40→10:55)
[2021-01-31] MEDS: levETIRAcetam 250 MG TABLET PO SCH ×2 (08:40→21:26)
[2021-01-31] MEDS: ASPIRIN CHEW 81 MG TABLET PO SCH (08:40)
[2021-01-31] MEDS: DIVALPROEX 250 MG TABLET PO SCH ×3 (08:40→21:26)
[2021-01-31] MEDS: amLODIPine 10 MG TABLET PO SCH (08:40)
[2021-01-31] MEDS: PANTOPRAZOLE 40 MG VIAL IV SCH ×2 (08:46→21:27)
[2021-01-31] MEDS: SKIN HEALING OINT (AQUAPHOR) 50 GM TUBE TOP SCH (08:46)
[2021-01-31] MEDS ORDERED: SODIUM BICARBONATE 50 MEQ/50 ML VIAL IV ONE (12:23)
[2021-01-31] MEDS ORDERED: SODIUM BICARB INJ 50 MEQ in IV BAG 1 EACH IV ONE (12:45)
[2021-01-31 14:32] LABS: Calcium 8.6 MG/DL (8.5-10.1); Osmolality,Calculated 292.3 MOS/KG (273-304); Potassium 4.3 MMOL/L (3.5-5.1)
[2021-01-31] MEDS: ATORVASTATIN 40 MG TABLET PO SCH (21:26)
[2021-02-01] MEDS: HEPARIN 5,000 UNIT/1 ML VIAL SUBCUT SCH ×3 (01:32→17:47)
[2021-02-01] MEDS: ALBUTEROL/IPRATROPIUM 3 ML NEB RESP TX SCH ×6 (04:16→23:50)
[2021-02-01] MEDS: AMOXICILLIN 500 MG CAPSULE PO SCH ×3 (05:22→21:14)
[2021-02-01 05:59] LABS: Basophils % 0.3 % (0.0-0.8); Eosinophils # 0.3 10*3/uL (0.0-0.87); Eosinophils % 3.4 % (0.00-10.9); Hematocrit 27.1 VOL% (42.0-52.0); Hemoglobin 8.6 GM/DL (14.0-18.0); Immature Granulocytes % 1.2 %; Immature Granulocytes Absolute 0.09 #; Lymphocytes % 26.6 % (21.2-54.2); Mean Corpuscular HGB Conc 31.7 GM/DL (32-36); Mean Corpuscular Volume 93.8 FL (87-102); Mean Platelet Volume 9.3 FL (9.6-12.0); Monocytes % 11.3 % (1.7-12.7); Neutrophils % 57.2 % (38.7-73.9); Platelet Count 301 T/CUMM (130-400); Red Blood Count 2.89 MC/CUMM (3.8-5.5); Red Cell Distribution Width 16.6 % (9.3-17.3); White Blood Count 7.6 T/CUMM (4-12)
[2021-02-01 06:23] LABS: Calcium 8.4 MG/DL (8.5-10.1); Osmolality,Calculated 289.1 MOS/KG (273-304); Potassium 4.1 MMOL/L (3.5-5.1)
[2021-02-01] MEDS: PANTOPRAZOLE 40 MG VIAL IV SCH ×2 (09:40→21:15)
[2021-02-01] MEDS: INSULIN NPH 100 UNIT/ML SUBCUT SCH ×2 (09:41→17:28)
[2021-02-01] MEDS: levETIRAcetam 250 MG TABLET PO SCH ×2 (09:41→21:14)
[2021-02-01] MEDS: ASPIRIN CHEW 81 MG TABLET PO SCH (09:41)
[2021-02-01] MEDS: POLYETHYLENE GLYCOL POWDER 17 GM PACK PO SCH (09:41)
[2021-02-01] MEDS: amLODIPine 10 MG TABLET PO SCH (09:41)
[2021-02-01] MEDS: INSULIN REGULAR 100 UNIT/ML SUBCUT SCH ×3 (09:42→17:28)
[2021-02-01] MEDS: DIVALPROEX 250 MG TABLET PO SCH ×3 (09:42→21:14)
[2021-02-01] MEDS: SKIN HEALING OINT (AQUAPHOR) 50 GM TUBE TOP SCH (09:50)
[2021-02-01] MEDS: ATORVASTATIN 40 MG TABLET PO SCH (21:14)
[2021-02-02] MEDS: HEPARIN 5,000 UNIT/1 ML VIAL SUBCUT SCH ×3 (02:04→18:53)
[2021-02-02] MEDS: ALBUTEROL/IPRATROPIUM 3 ML NEB RESP TX SCH ×6 (03:16→23:48)
[2021-02-02] MEDS: AMOXICILLIN 500 MG CAPSULE PO SCH ×3 (05:08→21:08)
[2021-02-02] MEDS: PANTOPRAZOLE 40 MG VIAL IV SCH (08:41)
[2021-02-02] MEDS: INSULIN NPH 100 UNIT/ML SUBCUT SCH ×2 (08:43→17:46)
[2021-02-02] MEDS: POLYETHYLENE GLYCOL POWDER 17 GM PACK PO SCH (08:43)
[2021-02-02] MEDS: ASPIRIN CHEW 81 MG TABLET PO SCH (08:44)
[2021-02-02] MEDS: amLODIPine 10 MG TABLET PO SCH (08:44)
[2021-02-02] MEDS: DIVALPROEX 250 MG TABLET PO SCH ×3 (08:44→21:08)
[2021-02-02] MEDS: DOCUSATE SODIUM 100 MG CAPSULE PO PRN (08:45)
[2021-02-02] MEDS: levETIRAcetam 250 MG TABLET PO SCH ×2 (08:45→21:08)
[2021-02-02] MEDS: SKIN HEALING OINT (AQUAPHOR) 50 GM TUBE TOP SCH (10:55)
[2021-02-02] MEDS: INSULIN REGULAR 100 UNIT/ML SUBCUT SCH ×3 (10:55→18:17)
[2021-02-02] MEDS: PANTOPRAZOLE 40 MG TABLET PO SCH (21:08)
[2021-02-02] MEDS: ATORVASTATIN 40 MG TABLET PO SCH (21:08)
[2021-02-03] MEDS: ALBUTEROL/IPRATROPIUM 3 ML NEB RESP TX SCH ×5 (03:27→19:38)
[2021-02-03] MEDS: HEPARIN 5,000 UNIT/1 ML VIAL SUBCUT SCH ×3 (03:49→18:21)
[2021-02-03] MEDS: AMOXICILLIN 500 MG CAPSULE PO SCH ×3 (06:29→21:40)
[2021-02-03] MEDS: INSULIN REGULAR 100 UNIT/ML SUBCUT SCH ×3 (07:27→15:40)
[2021-02-03] MEDS: INSULIN NPH 100 UNIT/ML SUBCUT SCH ×2 (07:27→18:20)
[2021-02-03] MEDS: PANTOPRAZOLE 40 MG TABLET PO SCH ×2 (08:45→21:41)
[2021-02-03] MEDS: ASPIRIN CHEW 81 MG TABLET PO SCH (08:45)
[2021-02-03] MEDS: amLODIPine 10 MG TABLET PO SCH (08:45)
[2021-02-03] MEDS: levETIRAcetam 250 MG TABLET PO SCH ×2 (08:45→21:41)
[2021-02-03] MEDS: DIVALPROEX 250 MG TABLET PO SCH ×3 (08:45→21:40)
[2021-02-03] MEDS: SKIN HEALING OINT (AQUAPHOR) 50 GM TUBE TOP SCH (08:47)
[2021-02-03] MEDS: POLYETHYLENE GLYCOL POWDER 17 GM PACK PO SCH (08:48)
[2021-02-03] MEDS: ATORVASTATIN 40 MG TABLET PO SCH (21:41)
[2021-02-04] MEDS: ALBUTEROL/IPRATROPIUM 3 ML NEB RESP TX SCH ×6 (00:22→20:00)
[2021-02-04] MEDS: HEPARIN 5,000 UNIT/1 ML VIAL SUBCUT SCH ×3 (03:31→18:19)
[2021-02-04] MEDS: AMOXICILLIN 500 MG CAPSULE PO SCH ×3 (06:12→21:46)
[2021-02-04] MEDS: DIVALPROEX 250 MG TABLET PO SCH ×3 (08:02→21:50)
[2021-02-04] MEDS: INSULIN NPH 100 UNIT/ML SUBCUT SCH ×2 (08:03→16:30)
[2021-02-04] MEDS: levETIRAcetam 250 MG TABLET PO SCH ×2 (08:03→21:47)
[2021-02-04] MEDS: amLODIPine 10 MG TABLET PO SCH (08:03)
[2021-02-04] MEDS: PANTOPRAZOLE 40 MG TABLET PO SCH ×2 (08:03→21:46)
[2021-02-04] MEDS: ASPIRIN CHEW 81 MG TABLET PO SCH (08:03)
[2021-02-04] MEDS: INSULIN REGULAR 100 UNIT/ML SUBCUT SCH ×3 (08:05→16:30)
[2021-02-04] MEDS: POLYETHYLENE GLYCOL POWDER 17 GM PACK PO SCH (09:10)
[2021-02-04] MEDS: SKIN HEALING OINT (AQUAPHOR) 50 GM TUBE TOP SCH (09:10)
[2021-02-04] MEDS: ATORVASTATIN 40 MG TABLET PO SCH (21:46)
[2021-02-05] MEDS: ALBUTEROL/IPRATROPIUM 3 ML NEB RESP TX SCH ×7 (00:48→23:00)
[2021-02-05] MEDS: HEPARIN 5,000 UNIT/1 ML VIAL SUBCUT SCH ×3 (03:37→17:09)
[2021-02-05 06:12] LABS: Basophils % 0.4 % (0.0-0.8); Eosinophils # 0.1 10*3/uL (0.0-0.87); Eosinophils % 2.3 % (0.00-10.9); Hematocrit 26.4 VOL% (42.0-52.0); Hemoglobin 8.1 GM/DL (14.0-18.0); Immature Granulocytes % 0.9 %; Immature Granulocytes Absolute 0.05 #; Lymphocytes # 1.4 10*3/uL (1.4-4.0); Lymphocytes % 23.9 % (21.2-54.2); Mean Corpuscular HGB Conc 30.7 GM/DL (32-36); Mean Corpuscular Volume 95.7 FL (87-102); Mean Platelet Volume 9.5 FL (9.6-12.0); Monocytes % 14.8 % (1.7-12.7); Neutrophils % 57.7 % (38.7-73.9); Platelet Count 322 T/CUMM (130-400); Red Blood Count 2.76 MC/CUMM (3.8-5.5); White Blood Count 5.7 T/CUMM (4-12)
[2021-02-05 06:28] LABS: Calcium 8.6 MG/DL (8.5-10.1); Osmolality,Calculated 293.5 MOS/KG (273-304); Potassium 4.2 MMOL/L (3.5-5.1)
[2021-02-05] MEDS: AMOXICILLIN 500 MG CAPSULE PO SCH ×3 (07:00→22:10)
[2021-02-05] MEDS: INSULIN REGULAR 100 UNIT/ML SUBCUT SCH ×3 (09:23→17:09)
[2021-02-05] MEDS: ASPIRIN CHEW 81 MG TABLET PO SCH (09:24)
[2021-02-05] MEDS: INSULIN NPH 100 UNIT/ML SUBCUT SCH ×2 (09:24→17:09)
[2021-02-05] MEDS: DIVALPROEX 250 MG TABLET PO SCH ×3 (09:25→22:10)
[2021-02-05] MEDS: levETIRAcetam 250 MG TABLET PO SCH ×2 (09:25→22:10)
[2021-02-05] MEDS: amLODIPine 10 MG TABLET PO SCH (09:25)
[2021-02-05] MEDS: SKIN HEALING OINT (AQUAPHOR) 50 GM TUBE TOP SCH (09:32)
[2021-02-05] MEDS: POLYETHYLENE GLYCOL POWDER 17 GM PACK PO SCH (09:33)
[2021-02-05] MEDS: PANTOPRAZOLE 40 MG TABLET PO SCH ×2 (09:33→22:09)
[2021-02-05] MEDS: ATORVASTATIN 40 MG TABLET PO SCH (22:09)
[2021-02-06] MEDS: HEPARIN 5,000 UNIT/1 ML VIAL SUBCUT SCH ×3 (01:30→17:04)
[2021-02-06] MEDS: AMOXICILLIN 500 MG CAPSULE PO SCH ×2 (05:25→14:45)
[2021-02-06] MEDS: ALBUTEROL/IPRATROPIUM 3 ML NEB RESP TX SCH ×5 (06:10→19:45)
[2021-02-06] MEDS: INSULIN REGULAR 100 UNIT/ML SUBCUT SCH ×3 (09:02→17:04)
[2021-02-06] MEDS: INSULIN NPH 100 UNIT/ML SUBCUT SCH ×2 (09:40→17:04)
[2021-02-06] MEDS: levETIRAcetam 250 MG TABLET PO SCH ×2 (09:40→22:05)
[2021-02-06] MEDS: ASPIRIN CHEW 81 MG TABLET PO SCH (09:40)
[2021-02-06] MEDS: SKIN HEALING OINT (AQUAPHOR) 50 GM TUBE TOP SCH (09:40)
[2021-02-06] MEDS: DIVALPROEX 250 MG TABLET PO SCH ×3 (09:40→22:06)
[2021-02-06] MEDS: PANTOPRAZOLE 40 MG TABLET PO SCH ×2 (09:41→22:10)
[2021-02-06] MEDS: POLYETHYLENE GLYCOL POWDER 17 GM PACK PO SCH (09:41)
[2021-02-06] MEDS: amLODIPine 10 MG TABLET PO SCH (09:41)
[2021-02-06] MEDS: ATORVASTATIN 40 MG TABLET PO SCH (22:06)
[2021-02-06] MEDS: DOCUSATE SODIUM 100 MG CAPSULE PO PRN (22:06)
[2021-02-06] MEDS: ACETAMINOPHEN 325 MG TABLET PO PRN (22:07)
[2021-02-07] MEDS: ALBUTEROL/IPRATROPIUM 3 ML NEB RESP TX SCH ×6 (00:12→20:07)
[2021-02-07] MEDS: HEPARIN 5,000 UNIT/1 ML VIAL SUBCUT SCH ×3 (01:51→18:24)
[2021-02-07] MEDS: AMOXICILLIN 500 MG CAPSULE PO SCH ×4 (01:53→21:29)
[2021-02-07] MEDS: INSULIN REGULAR 100 UNIT/ML SUBCUT SCH ×3 (08:20→16:43)
[2021-02-07] MEDS: ASPIRIN CHEW 81 MG TABLET PO SCH (09:55)
[2021-02-07] MEDS: POLYETHYLENE GLYCOL POWDER 17 GM PACK PO SCH (09:55)
[2021-02-07] MEDS: DIVALPROEX 250 MG TABLET PO SCH ×3 (09:55→21:29)
[2021-02-07] MEDS: INSULIN NPH 100 UNIT/ML SUBCUT SCH ×2 (09:55→18:24)
[2021-02-07] MEDS: levETIRAcetam 250 MG TABLET PO SCH ×2 (09:55→21:29)
[2021-02-07] MEDS: PANTOPRAZOLE 40 MG TABLET PO SCH ×2 (09:55→21:29)
[2021-02-07] MEDS: amLODIPine 10 MG TABLET PO SCH (09:55)
[2021-02-07] MEDS: SKIN HEALING OINT (AQUAPHOR) 50 GM TUBE TOP SCH (09:56)
[2021-02-07] MEDS: SERTRALINE 50 MG TABLET PO SCH (21:30)
[2021-02-07] MEDS: ATORVASTATIN 40 MG TABLET PO SCH (21:30)
[2021-02-08] MEDS: HEPARIN 5,000 UNIT/1 ML VIAL SUBCUT SCH ×3 (02:38→19:24)
[2021-02-08] MEDS: ALBUTEROL/IPRATROPIUM 3 ML NEB RESP TX SCH ×6 (03:58→23:46)
[2021-02-08] MEDS: AMOXICILLIN 500 MG CAPSULE PO SCH ×3 (05:59→21:01)
[2021-02-08 07:12] LABS: Basophils % 0.3 % (0.0-0.8); Eosinophils # 0.1 10*3/uL (0.0-0.87); Eosinophils % 1.5 % (0.00-10.9); Hematocrit 28.4 VOL% (42.0-52.0); Immature Granulocytes % 1.6 %; Lymphocytes # 1.4 10*3/uL (1.4-4.0); Lymphocytes % 23.1 % (21.2-54.2); Mean Corpuscular HGB Conc 31.7 GM/DL (32-36); Mean Corpuscular Volume 95.3 FL (87-102); Mean Platelet Volume 9.4 FL (9.6-12.0); Monocytes % 25.2 % (1.7-12.7); Neutrophils % 48.3 % (38.7-73.9); Platelet Count 268 T/CUMM (130-400); Red Blood Count 2.98 MC/CUMM (3.8-5.5); Red Cell Distribution Width 15.7 % (9.3-17.3); White Blood Count 6.1 T/CUMM (4-12)
[2021-02-08 07:33] LABS: Band Neutrophils 3 % (0-10); Eosinophils 1 % (0-10); Hypochromia 1+; Lymphocytes 19 % (20-55); Microcytosis 1+; Platelet Estimate Adequate; Segmented Neutrophils 60 % (50-85); Total Cells Counted 100
[2021-02-08 07:41] LABS: Calcium 8.9 MG/DL (8.5-10.1); Osmolality,Calculated 289.1 MOS/KG (273-304); Potassium 4.1 MMOL/L (3.5-5.1)
[2021-02-08] MEDS: INSULIN REGULAR 100 UNIT/ML SUBCUT SCH ×3 (07:44→17:09)
[2021-02-08] MEDS: PANTOPRAZOLE 40 MG TABLET PO SCH ×2 (08:46→21:01)
[2021-02-08] MEDS: INSULIN NPH 100 UNIT/ML SUBCUT SCH ×2 (08:46→17:09)
[2021-02-08] MEDS: levETIRAcetam 250 MG TABLET PO SCH ×2 (08:46→21:01)
[2021-02-08] MEDS: DIVALPROEX 250 MG TABLET PO SCH ×3 (08:46→21:01)
[2021-02-08] MEDS: POLYETHYLENE GLYCOL POWDER 17 GM PACK PO SCH (08:46)
[2021-02-08] MEDS: ASPIRIN CHEW 81 MG TABLET PO SCH (08:46)
[2021-02-08] MEDS: amLODIPine 10 MG TABLET PO SCH (08:46)
[2021-02-08] MEDS: SKIN HEALING OINT (AQUAPHOR) 50 GM TUBE TOP SCH (08:47)
[2021-02-08] MEDS: SERTRALINE 50 MG TABLET PO SCH (21:01)
[2021-02-08] MEDS: ATORVASTATIN 40 MG TABLET PO SCH (21:01)
[2021-02-09] MEDS: HEPARIN 5,000 UNIT/1 ML VIAL SUBCUT SCH ×3 (01:51→17:04)
[2021-02-09] MEDS: ALBUTEROL/IPRATROPIUM 3 ML NEB RESP TX SCH ×6 (03:32→19:30)
[2021-02-09] MEDS: AMOXICILLIN 500 MG CAPSULE PO SCH ×3 (07:13→21:23)
[2021-02-09] MEDS: INSULIN REGULAR 100 UNIT/ML SUBCUT SCH ×3 (07:16→17:03)
[2021-02-09 08:36] LABS: Basophils % 0.2 % (0.0-0.8); Eosinophils # 0.1 10*3/uL (0.0-0.87); Eosinophils % 1.3 % (0.00-10.9); Hematocrit 28.5 VOL% (42.0-52.0); Hemoglobin 8.8 GM/DL (14.0-18.0); Immature Granulocytes % 1.1 %; Immature Granulocytes Absolute 0.07 #; Lymphocytes # 1.5 10*3/uL (1.4-4.0); Lymphocytes % 24.6 % (21.2-54.2); Mean Corpuscular HGB Conc 30.9 GM/DL (32-36); Mean Corpuscular Volume 95.3 FL (87-102); Neutrophils % 48.8 % (38.7-73.9); Platelet Count 221 T/CUMM (130-400); Red Blood Count 2.99 MC/CUMM (3.8-5.5); Red Cell Distribution Width 15.3 % (9.3-17.3); White Blood Count 6.2 T/CUMM (4-12)
[2021-02-09] MEDS: levETIRAcetam 250 MG TABLET PO SCH ×2 (08:51→21:24)
[2021-02-09] MEDS: ASPIRIN CHEW 81 MG TABLET PO SCH (08:51)
[2021-02-09] MEDS: DIVALPROEX 250 MG TABLET PO SCH ×3 (08:51→21:22)
[2021-02-09] MEDS: PANTOPRAZOLE 40 MG TABLET PO SCH ×2 (08:51→21:23)
[2021-02-09] MEDS: amLODIPine 10 MG TABLET PO SCH (08:51)
[2021-02-09] MEDS: POLYETHYLENE GLYCOL POWDER 17 GM PACK PO SCH (08:57)
[2021-02-09] MEDS: SKIN HEALING OINT (AQUAPHOR) 50 GM TUBE TOP SCH (08:57)
[2021-02-09 08:58] LABS: Calcium 8.7 MG/DL (8.5-10.1); Osmolality,Calculated 288.3 MOS/KG (273-304)
[2021-02-09] MEDS: INSULIN NPH 100 UNIT/ML SUBCUT SCH ×2 (08:58→17:03)
[2021-02-09 09:10] LABS: Eosinophils 1 % (0-10); Hypochromia 1+; Lymphocytes 22 % (20-55); Microcytosis 1+; Platelet Estimate Adequate; Segmented Neutrophils 55 % (50-85); Total Cells Counted 100
[2021-02-09] MEDS: MULTIVITAMIN (CENTRUM) TABLET PO SCH (10:44)
[2021-02-09] MEDS: SODIUM HYPOCHLORITE 0.25% IRRIG 473 ML BOTTLE TOP SCH (15:43)
[2021-02-09] MEDS: ATORVASTATIN 40 MG TABLET PO SCH (21:23)
[2021-02-09] MEDS: SERTRALINE 50 MG TABLET PO SCH (21:24)
[2021-02-10] MEDS: ALBUTEROL/IPRATROPIUM 3 ML NEB RESP TX SCH ×5 (04:02→20:40)
[2021-02-10] MEDS: HEPARIN 5,000 UNIT/1 ML VIAL SUBCUT SCH ×3 (05:15→17:12)
[2021-02-10] MEDS: AMOXICILLIN 500 MG CAPSULE PO SCH ×3 (06:10→22:53)
[2021-02-10] MEDS: ASPIRIN CHEW 81 MG TABLET PO SCH (08:48)
[2021-02-10] MEDS: DIVALPROEX 250 MG TABLET PO SCH ×3 (08:48→22:54)
[2021-02-10] MEDS: MULTIVITAMIN (CENTRUM) TABLET PO SCH (08:48)
[2021-02-10] MEDS: PANTOPRAZOLE 40 MG TABLET PO SCH ×2 (08:48→22:55)
[2021-02-10] MEDS: levETIRAcetam 250 MG TABLET PO SCH ×2 (08:48→22:54)
[2021-02-10] MEDS: amLODIPine 10 MG TABLET PO SCH (08:49)
[2021-02-10] MEDS: INSULIN NPH 100 UNIT/ML SUBCUT SCH ×2 (08:56→16:58)
[2021-02-10] MEDS: INSULIN REGULAR 100 UNIT/ML SUBCUT SCH ×3 (10:53→16:58)
[2021-02-10] MEDS: POLYETHYLENE GLYCOL POWDER 17 GM PACK PO SCH (10:54)
[2021-02-10] MEDS: SKIN HEALING OINT (AQUAPHOR) 50 GM TUBE TOP SCH (10:55)
[2021-02-10] MEDS: SODIUM HYPOCHLORITE 0.25% IRRIG 473 ML BOTTLE TOP SCH (10:55)
[2021-02-10] MEDS: SERTRALINE 50 MG TABLET PO SCH (22:53)
[2021-02-10] MEDS: ATORVASTATIN 40 MG TABLET PO SCH (22:55)
[2021-02-11] MEDS: ALBUTEROL/IPRATROPIUM 3 ML NEB RESP TX SCH ×7 (00:07→23:20)
[2021-02-11] MEDS: HEPARIN 5,000 UNIT/1 ML VIAL SUBCUT SCH ×3 (01:01→17:28)
[2021-02-11] MEDS: AMOXICILLIN 500 MG CAPSULE PO SCH ×3 (06:52→21:18)
[2021-02-11] MEDS: INSULIN REGULAR 100 UNIT/ML SUBCUT SCH ×3 (06:58→17:28)
[2021-02-11] MEDS: INSULIN NPH 100 UNIT/ML SUBCUT SCH ×2 (09:38→17:29)
[2021-02-11] MEDS: ASPIRIN CHEW 81 MG TABLET PO SCH (09:39)
[2021-02-11] MEDS: POLYETHYLENE GLYCOL POWDER 17 GM PACK PO SCH (09:39)
[2021-02-11] MEDS: SODIUM HYPOCHLORITE 0.25% IRRIG 473 ML BOTTLE TOP SCH (09:39)
[2021-02-11] MEDS: DIVALPROEX 250 MG TABLET PO SCH ×3 (09:39→21:18)
[2021-02-11] MEDS: PANTOPRAZOLE 40 MG TABLET PO SCH ×2 (09:39→21:18)
[2021-02-11] MEDS: levETIRAcetam 250 MG TABLET PO SCH ×2 (09:39→21:18)
[2021-02-11] MEDS: SKIN HEALING OINT (AQUAPHOR) 50 GM TUBE TOP SCH (09:39)
[2021-02-11] MEDS: amLODIPine 10 MG TABLET PO SCH (09:39)
[2021-02-11] MEDS: MULTIVITAMIN (CENTRUM) TABLET PO SCH (09:39)
[2021-02-11] MEDS: ATORVASTATIN 40 MG TABLET PO SCH (21:18)
[2021-02-11] MEDS: SERTRALINE 50 MG TABLET PO SCH (21:18)
[2021-02-12] MEDS: HEPARIN 5,000 UNIT/1 ML VIAL SUBCUT SCH ×3 (01:13→17:31)
[2021-02-12] MEDS: ALBUTEROL/IPRATROPIUM 3 ML NEB RESP TX SCH ×5 (03:32→20:57)
[2021-02-12] MEDS: AMOXICILLIN 500 MG CAPSULE PO SCH ×3 (05:13→21:10)
[2021-02-12] MEDS: INSULIN NPH 100 UNIT/ML SUBCUT SCH ×2 (08:01→17:24)
[2021-02-12] MEDS: INSULIN REGULAR 100 UNIT/ML SUBCUT SCH ×3 (08:01→17:31)
[2021-02-12] MEDS: MULTIVITAMIN (CENTRUM) TABLET PO SCH (09:07)
[2021-02-12] MEDS: ASPIRIN CHEW 81 MG TABLET PO SCH (09:07)
[2021-02-12] MEDS: PANTOPRAZOLE 40 MG TABLET PO SCH ×2 (09:08→21:10)
[2021-02-12] MEDS: DIVALPROEX 250 MG TABLET PO SCH ×3 (09:08→21:10)
[2021-02-12] MEDS: levETIRAcetam 250 MG TABLET PO SCH ×2 (09:08→21:10)
[2021-02-12] MEDS: SKIN HEALING OINT (AQUAPHOR) 50 GM TUBE TOP SCH (09:09)
[2021-02-12] MEDS: amLODIPine 10 MG TABLET PO SCH (09:09)
[2021-02-12] MEDS: POLYETHYLENE GLYCOL POWDER 17 GM PACK PO SCH (09:09)
[2021-02-12] MEDS: SODIUM HYPOCHLORITE 0.25% IRRIG 473 ML BOTTLE TOP SCH (09:09)
[2021-02-12] MEDS: ATORVASTATIN 40 MG TABLET PO SCH (21:10)
[2021-02-12] MEDS: SERTRALINE 25 MG TABLET PO SCH (21:10)
[2021-02-13] MEDS: HEPARIN 5,000 UNIT/1 ML VIAL SUBCUT SCH ×3 (01:25→17:40)
[2021-02-13] MEDS: ALBUTEROL/IPRATROPIUM 3 ML NEB RESP TX SCH ×7 (01:52→22:51)
[2021-02-13] MEDS: AMOXICILLIN 500 MG CAPSULE PO SCH ×3 (05:06→21:58)
[2021-02-13] MEDS: levETIRAcetam 250 MG TABLET PO SCH ×2 (08:40→21:58)
[2021-02-13] MEDS: ASPIRIN CHEW 81 MG TABLET PO SCH (08:40)
[2021-02-13] MEDS: INSULIN NPH 100 UNIT/ML SUBCUT SCH ×2 (08:40→16:03)
[2021-02-13] MEDS: INSULIN REGULAR 100 UNIT/ML SUBCUT SCH ×3 (08:40→15:54)
[2021-02-13] MEDS: amLODIPine 10 MG TABLET PO SCH (08:40)
[2021-02-13] MEDS: SODIUM HYPOCHLORITE 0.25% IRRIG 473 ML BOTTLE TOP SCH (08:41)
[2021-02-13] MEDS: MULTIVITAMIN (CENTRUM) TABLET PO SCH (08:41)
[2021-02-13] MEDS: DIVALPROEX 250 MG TABLET PO SCH ×3 (08:41→21:58)
[2021-02-13] MEDS: SKIN HEALING OINT (AQUAPHOR) 50 GM TUBE TOP SCH (08:41)
[2021-02-13] MEDS: PANTOPRAZOLE 40 MG TABLET PO SCH ×2 (08:41→21:58)
[2021-02-13] MEDS: POLYETHYLENE GLYCOL POWDER 17 GM PACK PO SCH (08:41)
[2021-02-13] MEDS: DOCUSATE SODIUM 100 MG CAPSULE PO PRN (21:57)
[2021-02-13] MEDS: SERTRALINE 25 MG TABLET PO SCH (21:58)
[2021-02-13] MEDS: ATORVASTATIN 40 MG TABLET PO SCH (21:58)
[2021-02-14] MEDS: HEPARIN 5,000 UNIT/1 ML VIAL SUBCUT SCH ×3 (01:15→17:07)
[2021-02-14] MEDS: ALBUTEROL/IPRATROPIUM 3 ML NEB RESP TX SCH ×5 (02:32→19:15)
[2021-02-14] MEDS: AMOXICILLIN 500 MG CAPSULE PO SCH ×3 (06:08→21:07)
[2021-02-14] MEDS: POLYETHYLENE GLYCOL POWDER 17 GM PACK PO SCH (08:58)
[2021-02-14] MEDS: DIVALPROEX 250 MG TABLET PO SCH ×3 (08:59→20:46)
[2021-02-14] MEDS: PANTOPRAZOLE 40 MG TABLET PO SCH ×2 (09:00→20:46)
[2021-02-14] MEDS: MULTIVITAMIN (CENTRUM) TABLET PO SCH (09:00)
[2021-02-14] MEDS: levETIRAcetam 250 MG TABLET PO SCH ×2 (09:00→20:45)
[2021-02-14] MEDS: amLODIPine 10 MG TABLET PO SCH (09:00)
[2021-02-14] MEDS: ASPIRIN CHEW 81 MG TABLET PO SCH (09:00)
[2021-02-14] MEDS: INSULIN NPH 100 UNIT/ML SUBCUT SCH ×2 (09:01→17:08)
[2021-02-14] MEDS: SKIN HEALING OINT (AQUAPHOR) 50 GM TUBE TOP SCH (09:02)
[2021-02-14] MEDS: SODIUM HYPOCHLORITE 0.25% IRRIG 473 ML BOTTLE TOP SCH (09:02)
[2021-02-14] MEDS: INSULIN REGULAR 100 UNIT/ML SUBCUT SCH ×3 (09:04→15:34)
[2021-02-14] MEDS: SERTRALINE 25 MG TABLET PO SCH (20:46)
[2021-02-14] MEDS: ATORVASTATIN 40 MG TABLET PO SCH (20:46)
[2021-02-15] MEDS: HEPARIN 5,000 UNIT/1 ML VIAL SUBCUT SCH ×3 (02:47→17:28)
[2021-02-15] MEDS: AMOXICILLIN 500 MG CAPSULE PO SCH ×3 (05:55→21:26)
[2021-02-15] MEDS: ALBUTEROL/IPRATROPIUM 3 ML NEB RESP TX SCH ×5 (06:45→20:26)
[2021-02-15] MEDS: INSULIN REGULAR 100 UNIT/ML SUBCUT SCH ×3 (08:05→15:42)
[2021-02-15] MEDS: ASPIRIN CHEW 81 MG TABLET PO SCH (09:02)
[2021-02-15] MEDS: levETIRAcetam 250 MG TABLET PO SCH ×2 (09:02→20:37)
[2021-02-15] MEDS: INSULIN NPH 100 UNIT/ML SUBCUT SCH ×2 (09:02→17:28)
[2021-02-15] MEDS: DIVALPROEX 250 MG TABLET PO SCH ×3 (09:03→20:37)
[2021-02-15] MEDS: PANTOPRAZOLE 40 MG TABLET PO SCH ×2 (09:03→20:37)
[2021-02-15] MEDS: amLODIPine 10 MG TABLET PO SCH (09:03)
[2021-02-15] MEDS: MULTIVITAMIN (CENTRUM) TABLET PO SCH (09:03)
[2021-02-15] MEDS: SODIUM HYPOCHLORITE 0.25% IRRIG 473 ML BOTTLE TOP SCH (11:06)
[2021-02-15] MEDS: POLYETHYLENE GLYCOL POWDER 17 GM PACK PO SCH (11:06)
[2021-02-15] MEDS ORDERED: TUBERCULIN SKIN TEST 0.1 ML SYRINGE INTRADERM ONE (17:57)
[2021-02-15] MEDS: SKIN HEALING OINT (AQUAPHOR) 50 GM TUBE TOP SCH (18:25)
[2021-02-15] MEDS: SERTRALINE 25 MG TABLET PO SCH (20:37)
[2021-02-15] MEDS: ATORVASTATIN 40 MG TABLET PO SCH (20:37)
[2021-02-16] MEDS: ALBUTEROL/IPRATROPIUM 3 ML NEB RESP TX SCH ×8 (00:45→23:36)
[2021-02-16] MEDS: HEPARIN 5,000 UNIT/1 ML VIAL SUBCUT SCH ×2 (03:39→09:14)
[2021-02-16] MEDS: AMOXICILLIN 500 MG CAPSULE PO SCH ×3 (05:58→21:06)
[2021-02-16] MEDS: INSULIN REGULAR 100 UNIT/ML SUBCUT SCH ×3 (08:00→18:17)
[2021-02-16] MEDS: DIVALPROEX 250 MG TABLET PO SCH ×3 (09:12→20:17)
[2021-02-16] MEDS: INSULIN NPH 100 UNIT/ML SUBCUT SCH ×2 (09:12→17:44)
[2021-02-16] MEDS: SKIN HEALING OINT (AQUAPHOR) 50 GM TUBE TOP SCH (09:12)
[2021-02-16] MEDS: MULTIVITAMIN (CENTRUM) TABLET PO SCH (09:12)
[2021-02-16] MEDS: ASPIRIN CHEW 81 MG TABLET PO SCH (09:13)
[2021-02-16] MEDS: amLODIPine 10 MG TABLET PO SCH (09:13)
[2021-02-16] MEDS: levETIRAcetam 250 MG TABLET PO SCH ×2 (09:13→20:17)
[2021-02-16] MEDS: PANTOPRAZOLE 40 MG TABLET PO SCH ×2 (09:13→20:17)
[2021-02-16] MEDS: POLYETHYLENE GLYCOL POWDER 17 GM PACK PO SCH (09:16)
[2021-02-16] MEDS: SODIUM HYPOCHLORITE 0.25% IRRIG 473 ML BOTTLE TOP SCH (11:33)
[2021-02-16] MEDS: SERTRALINE 25 MG TABLET PO SCH (20:17)
[2021-02-16] MEDS: ATORVASTATIN 40 MG TABLET PO SCH (20:17)
[2021-02-17] MEDS: ALBUTEROL/IPRATROPIUM 3 ML NEB RESP TX SCH ×2 (03:00→07:42)
[2021-02-17] MEDS: HEPARIN 5,000 UNIT/1 ML VIAL SUBCUT SCH ×5 (03:48→17:57)
[2021-02-17] MEDS: AMOXICILLIN 500 MG CAPSULE PO SCH ×3 (05:37→21:13)
[2021-02-17] MEDS: ASPIRIN CHEW 81 MG TABLET PO SCH (09:19)
[2021-02-17] MEDS: POLYETHYLENE GLYCOL POWDER 17 GM PACK PO SCH (09:19)
[2021-02-17] MEDS: INSULIN NPH 100 UNIT/ML SUBCUT SCH ×2 (09:19→16:16)
[2021-02-17] MEDS: levETIRAcetam 250 MG TABLET PO SCH ×2 (09:20→21:14)
[2021-02-17] MEDS: amLODIPine 10 MG TABLET PO SCH (09:20)
[2021-02-17] MEDS: SKIN HEALING OINT (AQUAPHOR) 50 GM TUBE TOP SCH (09:20)
[2021-02-17] MEDS: PANTOPRAZOLE 40 MG TABLET PO SCH ×2 (09:20→21:13)
[2021-02-17] MEDS: SODIUM HYPOCHLORITE 0.25% IRRIG 473 ML BOTTLE TOP SCH (09:20)
[2021-02-17] MEDS: DIVALPROEX 250 MG TABLET PO SCH ×3 (09:20→21:14)
[2021-02-17] MEDS: MULTIVITAMIN (CENTRUM) TABLET PO SCH (09:20)
[2021-02-17] MEDS: INSULIN REGULAR 100 UNIT/ML SUBCUT SCH ×3 (09:26→16:16)
[2021-02-17] MEDS: ATORVASTATIN 40 MG TABLET PO SCH (21:13)
[2021-02-17] MEDS: SERTRALINE 25 MG TABLET PO SCH (21:14)
[2021-02-18] MEDS: HEPARIN 5,000 UNIT/1 ML VIAL SUBCUT SCH ×3 (02:19→18:06)
[2021-02-18] MEDS: AMOXICILLIN 500 MG CAPSULE PO SCH ×3 (05:36→22:19)
[2021-02-18] MEDS: MULTIVITAMIN (CENTRUM) TABLET PO SCH (09:07)
[2021-02-18] MEDS: PANTOPRAZOLE 40 MG TABLET PO SCH ×2 (09:08→22:20)
[2021-02-18] MEDS: ASPIRIN CHEW 81 MG TABLET PO SCH (09:08)
[2021-02-18] MEDS: DIVALPROEX 250 MG TABLET PO SCH ×3 (09:08→22:20)
[2021-02-18] MEDS: amLODIPine 10 MG TABLET PO SCH (09:08)
[2021-02-18] MEDS: levETIRAcetam 250 MG TABLET PO SCH ×2 (09:08→22:20)
[2021-02-18] MEDS: INSULIN NPH 100 UNIT/ML SUBCUT SCH ×2 (09:08→16:18)
[2021-02-18] MEDS: POLYETHYLENE GLYCOL POWDER 17 GM PACK PO SCH (09:09)
[2021-02-18] MEDS: SKIN HEALING OINT (AQUAPHOR) 50 GM TUBE TOP SCH (10:44)
[2021-02-18] MEDS: INSULIN REGULAR 100 UNIT/ML SUBCUT SCH ×3 (10:44→16:18)
[2021-02-18] MEDS: SODIUM HYPOCHLORITE 0.25% IRRIG 473 ML BOTTLE TOP SCH (10:45)
[2021-02-18] MEDS: SERTRALINE 25 MG TABLET PO SCH (22:20)
[2021-02-18] MEDS: ATORVASTATIN 40 MG TABLET PO SCH (22:20)
[2021-02-18] MEDS: MOISTURIZING CREAM (EUCERIN) 106 GM JAR TOP SCH (22:21)
[2021-02-19] MEDS: HEPARIN 5,000 UNIT/1 ML VIAL SUBCUT SCH ×3 (03:28→17:30)
[2021-02-19] MEDS: AMOXICILLIN 500 MG CAPSULE PO SCH ×3 (05:40→21:04)
[2021-02-19] MEDS: ASPIRIN CHEW 81 MG TABLET PO SCH (09:09)
[2021-02-19] MEDS: INSULIN NPH 100 UNIT/ML SUBCUT SCH (09:10)
[2021-02-19] MEDS: SKIN HEALING OINT (AQUAPHOR) 50 GM TUBE TOP SCH (09:11)
[2021-02-19] MEDS: POLYETHYLENE GLYCOL POWDER 17 GM PACK PO SCH (09:11)
[2021-02-19] MEDS: MOISTURIZING CREAM (EUCERIN) 106 GM JAR TOP SCH ×2 (09:11→21:06)
[2021-02-19] MEDS: PANTOPRAZOLE 40 MG TABLET PO SCH ×2 (09:12→21:04)
[2021-02-19] MEDS: DOCUSATE SODIUM 100 MG CAPSULE PO PRN (09:12)
[2021-02-19] MEDS: DIVALPROEX 250 MG TABLET PO SCH ×3 (09:12→21:04)
[2021-02-19] MEDS: levETIRAcetam 250 MG TABLET PO SCH ×2 (09:12→21:04)
[2021-02-19] MEDS: amLODIPine 10 MG TABLET PO SCH (09:12)
[2021-02-19] MEDS: MULTIVITAMIN (CENTRUM) TABLET PO SCH (09:13)
[2021-02-19] MEDS: SODIUM HYPOCHLORITE 0.25% IRRIG 473 ML BOTTLE TOP SCH (10:16)
[2021-02-19] MEDS: INSULIN REGULAR 100 UNIT/ML SUBCUT SCH ×3 (10:16→17:38)
[2021-02-19 12:26] LABS: Basophils % 0.3 % (0.0-0.8); Eosinophils # 0.1 10*3/uL (0.0-0.87); Eosinophils % 1.5 % (0.00-10.9); Hemoglobin 8.1 GM/DL (14.0-18.0); Immature Granulocytes % 3.2 %; Immature Granulocytes Absolute 0.19 #; Lymphocytes % 34.1 % (21.2-54.2); Mean Corpuscular HGB Conc 31.2 GM/DL (32-36); Mean Corpuscular Volume 95.6 FL (87-102); Mean Platelet Volume 9.3 FL (9.6-12.0); Monocytes % 11.8 % (1.7-12.7); Neutrophils % 49.1 % (38.7-73.9); Platelet Count 238 T/CUMM (130-400); Red Blood Count 2.72 MC/CUMM (3.8-5.5); Red Cell Distribution Width 14.6 % (9.3-17.3); White Blood Count 5.9 T/CUMM (4-12)
[2021-02-19] MEDS: INSULIN NPH/REGULAR 70/30 100 UNIT/ML SUBCUT SCH (17:30)
[2021-02-19] MEDS: ATORVASTATIN 40 MG TABLET PO SCH (21:04)
[2021-02-19] MEDS: SERTRALINE 25 MG TABLET PO SCH (21:04)
[2021-02-20] MEDS: HEPARIN 5,000 UNIT/1 ML VIAL SUBCUT SCH ×3 (02:59→18:04)
[2021-02-20] MEDS: AMOXICILLIN 500 MG CAPSULE PO SCH ×3 (06:22→21:00)
[2021-02-20] MEDS: INSULIN REGULAR 100 UNIT/ML SUBCUT SCH ×2 (09:39→18:02)
[2021-02-20] MEDS: INSULIN NPH/REGULAR 70/30 100 UNIT/ML SUBCUT SCH ×2 (09:39→18:03)
[2021-02-20] MEDS: ASPIRIN CHEW 81 MG TABLET PO SCH (09:40)
[2021-02-20] MEDS: SODIUM HYPOCHLORITE 0.25% IRRIG 473 ML BOTTLE TOP SCH (09:40)
[2021-02-20] MEDS: SKIN HEALING OINT (AQUAPHOR) 50 GM TUBE TOP SCH (09:40)
[2021-02-20] MEDS: MULTIVITAMIN (CENTRUM) TABLET PO SCH (09:40)
[2021-02-20] MEDS: DIVALPROEX 250 MG TABLET PO SCH ×3 (09:40→20:53)
[2021-02-20] MEDS: MOISTURIZING CREAM (EUCERIN) 106 GM JAR TOP SCH ×2 (09:41→20:57)
[2021-02-20] MEDS: PANTOPRAZOLE 40 MG TABLET PO SCH ×2 (09:41→20:53)
[2021-02-20] MEDS: POLYETHYLENE GLYCOL POWDER 17 GM PACK PO SCH (09:41)
[2021-02-20] MEDS: levETIRAcetam 250 MG TABLET PO SCH ×2 (09:41→20:53)
[2021-02-20] MEDS: amLODIPine 10 MG TABLET PO SCH (09:43)
[2021-02-20] MEDS: ATORVASTATIN 40 MG TABLET PO SCH (20:53)
[2021-02-20] MEDS: SERTRALINE 25 MG TABLET PO SCH (20:53)
[2021-02-21] MEDS: HEPARIN 5,000 UNIT/1 ML VIAL SUBCUT SCH ×3 (02:18→17:46)
[2021-02-21] MEDS: AMOXICILLIN 500 MG CAPSULE PO SCH ×3 (05:57→21:52)
[2021-02-21 06:09] LABS: Basophils % 0.3 % (0.0-0.8); Eosinophils # 0.1 10*3/uL (0.0-0.87); Eosinophils % 1.3 % (0.00-10.9); Hematocrit 25.1 VOL% (42.0-52.0); Hemoglobin 7.9 GM/DL (14.0-18.0); Immature Granulocytes Absolute 0.14 #; Lymphocytes # 1.8 10*3/uL (1.4-4.0); Lymphocytes % 26.1 % (21.2-54.2); Mean Corpuscular HGB Conc 31.5 GM/DL (32-36); Mean Corpuscular Volume 94.4 FL (87-102); Mean Platelet Volume 9.9 FL (9.6-12.0); Monocytes % 11.8 % (1.7-12.7); Neutrophils % 58.5 % (38.7-73.9); Platelet Count 236 T/CUMM (130-400); Red Blood Count 2.66 MC/CUMM (3.8-5.5); Red Cell Distribution Width 14.6 % (9.3-17.3); White Blood Count 6.9 T/CUMM (4-12)
[2021-02-21 06:51] LABS: Calcium 8.6 MG/DL (8.5-10.1); Osmolality,Calculated 295.7 MOS/KG (273-304); Potassium 4.6 MMOL/L (3.5-5.1)
[2021-02-21] MEDS: DIVALPROEX 250 MG TABLET PO SCH ×3 (10:04→21:50)
[2021-02-21] MEDS: ASPIRIN CHEW 81 MG TABLET PO SCH (10:04)
[2021-02-21] MEDS: levETIRAcetam 250 MG TABLET PO SCH ×2 (10:05→21:52)
[2021-02-21] MEDS: amLODIPine 10 MG TABLET PO SCH (10:05)
[2021-02-21] MEDS: INSULIN REGULAR 100 UNIT/ML SUBCUT SCH ×3 (10:07→17:46)
[2021-02-21] MEDS: INSULIN NPH/REGULAR 70/30 100 UNIT/ML SUBCUT SCH ×2 (10:08→17:45)
[2021-02-21] MEDS: MULTIVITAMIN (CENTRUM) TABLET PO SCH (10:26)
[2021-02-21] MEDS: SKIN HEALING OINT (AQUAPHOR) 50 GM TUBE TOP SCH (10:26)
[2021-02-21] MEDS: MOISTURIZING CREAM (EUCERIN) 106 GM JAR TOP SCH ×2 (10:27→21:52)
[2021-02-21] MEDS: POLYETHYLENE GLYCOL POWDER 17 GM PACK PO SCH (10:27)
[2021-02-21] MEDS: PANTOPRAZOLE 40 MG TABLET PO SCH ×2 (10:27→21:52)
[2021-02-21] MEDS: SODIUM HYPOCHLORITE 0.25% IRRIG 473 ML BOTTLE TOP SCH (17:45)
[2021-02-21] MEDS: ATORVASTATIN 40 MG TABLET PO SCH (21:52)
[2021-02-21] MEDS: SERTRALINE 25 MG TABLET PO SCH (21:52)
[2021-02-22] MEDS: HEPARIN 5,000 UNIT/1 ML VIAL SUBCUT SCH ×3 (02:50→18:04)
[2021-02-22] MEDS: AMOXICILLIN 500 MG CAPSULE PO SCH ×2 (05:10→14:47)
[2021-02-22 05:20] LABS: Basophils % 0.4 % (0.0-0.8); Eosinophils # 0.1 10*3/uL (0.0-0.87); Eosinophils % 1.1 % (0.00-10.9); Hematocrit 25.8 VOL% (42.0-52.0); Hemoglobin 8.1 GM/DL (14.0-18.0); Immature Granulocytes % 2.1 %; Immature Granulocytes Absolute 0.16 #; Lymphocytes % 26.6 % (21.2-54.2); Mean Corpuscular HGB Conc 31.4 GM/DL (32-36); Mean Corpuscular Volume 94.9 FL (87-102); Mean Platelet Volume 9.3 FL (9.6-12.0); Monocytes % 11.8 % (1.7-12.7); Platelet Count 212 T/CUMM (130-400); Red Blood Count 2.72 MC/CUMM (3.8-5.5); Red Cell Distribution Width 14.6 % (9.3-17.3); White Blood Count 7.6 T/CUMM (4-12)
[2021-02-22 05:45] LABS: Eosinophils 1 % (0-10); Lymphocytes 25 % (20-55); Platelet Estimate Adequate; Segmented Neutrophils 62 % (50-85); Total Cells Counted 100
[2021-02-22 05:46] LABS: Hypochromia 1+; Microcytosis 1+
[2021-02-22 05:54] LABS: Calcium 8.4 MG/DL (8.5-10.1); Osmolality,Calculated 292.8 MOS/KG (273-304); Potassium 4.5 MMOL/L (3.5-5.1)
[2021-02-22] MEDS: SKIN HEALING OINT (AQUAPHOR) 50 GM TUBE TOP SCH (08:48)
[2021-02-22] MEDS: POLYETHYLENE GLYCOL POWDER 17 GM PACK PO SCH (08:49)
[2021-02-22] MEDS: levETIRAcetam 250 MG TABLET PO SCH ×2 (08:49→20:27)
[2021-02-22] MEDS: MULTIVITAMIN (CENTRUM) TABLET PO SCH (08:50)
[2021-02-22] MEDS: amLODIPine 10 MG TABLET PO SCH (08:50)
[2021-02-22] MEDS: ASPIRIN CHEW 81 MG TABLET PO SCH (08:50)
[2021-02-22] MEDS: PANTOPRAZOLE 40 MG TABLET PO SCH ×2 (08:50→20:28)
[2021-02-22] MEDS: DOCUSATE SODIUM 100 MG CAPSULE PO PRN (08:50)
[2021-02-22] MEDS: INSULIN NPH/REGULAR 70/30 100 UNIT/ML SUBCUT SCH ×2 (08:51→16:55)
[2021-02-22] MEDS: INSULIN REGULAR 100 UNIT/ML SUBCUT SCH ×3 (09:37→16:58)
[2021-02-22] MEDS: SODIUM HYPOCHLORITE 0.25% IRRIG 473 ML BOTTLE TOP SCH (09:38)
[2021-02-22] MEDS: MOISTURIZING CREAM (EUCERIN) 106 GM JAR TOP SCH ×2 (09:38→20:31)
[2021-02-22] MEDS: DIVALPROEX 250 MG TABLET PO SCH ×3 (10:54→20:27)
[2021-02-22] MEDS: SERTRALINE 25 MG TABLET PO SCH (20:27)
[2021-02-22] MEDS: ATORVASTATIN 40 MG TABLET PO SCH (20:28)
[2021-02-23] MEDS: HEPARIN 5,000 UNIT/1 ML VIAL SUBCUT SCH ×3 (03:12→17:50)
[2021-02-23 07:35] LABS: Basophils % 0.5 % (0.0-0.8); Eosinophils # 0.1 10*3/uL (0.0-0.87); Eosinophils % 1.4 % (0.00-10.9); Hematocrit 26.9 VOL% (42.0-52.0); Hemoglobin 8.6 GM/DL (14.0-18.0); Immature Granulocytes % 1.7 %; Immature Granulocytes Absolute 0.14 #; Lymphocytes # 2.8 10*3/uL (1.4-4.0); Lymphocytes % 33.3 % (21.2-54.2); Mean Corpuscular Volume 94.7 FL (87-102); Mean Platelet Volume 9.5 FL (9.6-12.0); Monocytes % 8.4 % (1.7-12.7); Neutrophils % 54.7 % (38.7-73.9); Platelet Count 216 T/CUMM (130-400); Red Blood Count 2.84 MC/CUMM (3.8-5.5); Red Cell Distribution Width 14.6 % (9.3-17.3); White Blood Count 8.4 T/CUMM (4-12)
[2021-02-23 07:55] LABS: Calcium 8.8 MG/DL (8.5-10.1); Osmolality,Calculated 289.4 MOS/KG (273-304); Potassium 4.5 MMOL/L (3.5-5.1)
[2021-02-23 07:57] LABS: Eosinophils 2 % (0-10); Hypochromia 1+; Lymphocytes 23 % (20-55); Microcytosis 1+; Platelet Estimate Adequate; Segmented Neutrophils 68 % (50-85); Total Cells Counted 100
[2021-02-23] MEDS: MULTIVITAMIN (CENTRUM) TABLET PO SCH (08:53)
[2021-02-23] MEDS: DIVALPROEX 250 MG TABLET PO SCH ×3 (08:53→20:49)
[2021-02-23] MEDS: PANTOPRAZOLE 40 MG TABLET PO SCH ×2 (08:53→20:48)
[2021-02-23] MEDS: levETIRAcetam 250 MG TABLET PO SCH ×2 (08:53→20:49)
[2021-02-23] MEDS: amLODIPine 10 MG TABLET PO SCH (08:53)
[2021-02-23] MEDS: ASPIRIN CHEW 81 MG TABLET PO SCH (08:53)
[2021-02-23] MEDS: INSULIN NPH/REGULAR 70/30 100 UNIT/ML SUBCUT SCH ×2 (09:06→16:22)
[2021-02-23] MEDS: INSULIN REGULAR 100 UNIT/ML SUBCUT SCH ×3 (09:06→16:12)
[2021-02-23] MEDS: SKIN HEALING OINT (AQUAPHOR) 50 GM TUBE TOP SCH ×2 (09:15→20:49)
[2021-02-23] MEDS: MOISTURIZING CREAM (EUCERIN) 106 GM JAR TOP SCH ×2 (09:15→20:50)
[2021-02-23] MEDS: SODIUM HYPOCHLORITE 0.25% IRRIG 473 ML BOTTLE TOP SCH (09:15)
[2021-02-23] MEDS: POLYETHYLENE GLYCOL POWDER 17 GM PACK PO SCH (09:22)
[2021-02-23] MEDS: ATORVASTATIN 40 MG TABLET PO SCH (20:48)
[2021-02-23] MEDS: SERTRALINE 25 MG TABLET PO SCH (20:49)
[2021-02-24] MEDS: HEPARIN 5,000 UNIT/1 ML VIAL SUBCUT SCH ×2 (02:09→09:01)
[2021-02-24] MEDS: INSULIN REGULAR 100 UNIT/ML SUBCUT SCH ×2 (08:10→11:44)
[2021-02-24] MEDS: POLYETHYLENE GLYCOL POWDER 17 GM PACK PO SCH (09:00)
[2021-02-24] MEDS: ASPIRIN CHEW 81 MG TABLET PO SCH (09:00)
[2021-02-24] MEDS: levETIRAcetam 250 MG TABLET PO SCH (09:00)
[2021-02-24] MEDS: INSULIN NPH/REGULAR 70/30 100 UNIT/ML SUBCUT SCH (09:00)
[2021-02-24] MEDS: amLODIPine 10 MG TABLET PO SCH (09:00)
[2021-02-24] MEDS: MULTIVITAMIN (CENTRUM) TABLET PO SCH (09:00)
[2021-02-24] MEDS: PANTOPRAZOLE 40 MG TABLET PO SCH (09:00)
[2021-02-24] MEDS: SODIUM HYPOCHLORITE 0.25% IRRIG 473 ML BOTTLE TOP SCH (09:01)
[2021-02-24] MEDS: MOISTURIZING CREAM (EUCERIN) 106 GM JAR TOP SCH (09:01)
[2021-02-24] MEDS: SKIN HEALING OINT (AQUAPHOR) 50 GM TUBE TOP SCH (09:01)
[2021-02-24] MEDS: DIVALPROEX 250 MG TABLET PO SCH (09:01)
[2021-02-24 11:26] LABS: Basophils % 0.3 % (0.0-0.8); Eosinophils # 0.1 10*3/uL (0.0-0.87); Eosinophils % 1.5 % (0.00-10.9); Hematocrit 25.5 VOL% (42.0-52.0); Immature Granulocytes % 0.8 %; Immature Granulocytes Absolute 0.06 #; Mean Corpuscular HGB Conc 31.4 GM/DL (32-36); Mean Corpuscular Volume 95.5 FL (87-102); Mean Platelet Volume 9.6 FL (9.6-12.0); Monocytes % 9.4 % (1.7-12.7); Platelet Count 201 T/CUMM (130-400); Red Blood Count 2.67 MC/CUMM (3.8-5.5); Red Cell Distribution Width 15.1 % (9.3-17.3); White Blood Count 7.4 T/CUMM (4-12)
[2021-02-24 11:41] LABS: Calcium 8.7 MG/DL (8.5-10.1); Osmolality,Calculated 293.5 MOS/KG (273-304); Potassium 4.5 MMOL/L (3.5-5.1)
[2021-02-24 11:57] VITALS: BP 145/80
== END 2021-02-24 13:57 | disposition home health service (06) | DRG 163 ==
LOC: N.CC 03:48 → SUATTDRO 05:03 → N.3E 12-31 23:02 → N.CC 01-09 00:35 → N.3E 01-14 11:38
PROVIDERS: ADMIT Family Medicine; ATTEND Emergency Medicine

== ENCOUNTER 2021-05-07 11:44 | Inpatient (IN) ==
[2021-05-07] MEDS ORDERED: MAGNESIUM SULF RIDER 4 GM/100 ML PREMIX IV PRN (13:49)
[2021-05-07] MEDS ORDERED: DEXTROSE 10% 250 ML BAG IV PRN ×2 (13:49→14:05)
[2021-05-07] MEDS ORDERED: SODIUM PHOSPHATE INJ 17.5 MMOL in SODIUM CHLORIDE 0.9% 250 ML IV PRN (13:49)
[2021-05-07] MEDS ORDERED: MAGNESIUM SULF RIDER 2 GM/50 ML PREMIX IV PRN (13:49)
[2021-05-07] MEDS ORDERED: SODIUM BICARB INJ 100 MEQ in STERILE WATER INJ 400 ML IV PRN (13:49)
[2021-05-07] MEDS ORDERED: MIDAZOLAM 100 MG in SODIUM CHLORIDE 0.9% 80 ML IV PRN (13:58)
[2021-05-07] MEDS ORDERED: INSULIN REGULAR DRIP 100 ML IV SCH (14:00)
[2021-05-07] MEDS: hydrALAZINE 20 MG/1 ML VIAL IV PRN ×2 (14:48→23:52)
[2021-05-07 14:49] LABS: Hyaline Casts,Urine 1 /LPF (0-3); RBC,Urine 2 /HPF (0-4); Squamous Epithelial Cell,Urine Occasional /HPF (0-10)
[2021-05-07 14:50] LABS: Protein,Urine >=300 mg/dL (Negative); Urine Appearance Clear (Clear); Urine Color Yellow (Yellow); Urine Specific Gravity 1.015 (1.001-1.035)
[2021-05-07 14:51] LABS: Bilirubin,Urine Negative (Negative); Blood, Urine Moderate mg/dL (Negative); Glucose,Urine (UA) >=1000 mg/dL (Negative); Ketones,Urine 15 mg/dL (Negative); Nitrite,Urine Negative (Negative); Urine Urobilinogen 0.2 eU/dL (<2.0)
[2021-05-07 14:56] LABS: Basophils % 0.3 % (0.0-0.8); Eosinophils % 0.3 % (0.00-10.9); Hematocrit 40.3 VOL% (42.0-52.0); Hemoglobin 13.4 GM/DL (14.0-18.0); Immature Granulocytes % 0.5 %; Immature Granulocytes Absolute 0.04 #; Lymphocytes % 12.4 % (21.2-54.2); Mean Corpuscular HGB Conc 33.3 GM/DL (32-36); Mean Corpuscular Volume 90.2 FL (87-102); Mean Platelet Volume 10.6 FL (9.6-12.0); Monocytes % 8.3 % (1.7-12.7); Neutrophils % 78.2 % (38.7-73.9); Platelet Count 228 T/CUMM (130-400); Red Blood Count 4.47 MC/CUMM (3.8-5.5); Red Cell Distribution Width 12.1 % (9.3-17.3); White Blood Count 7.7 T/CUMM (4-12)
[2021-05-07] MEDS: SODIUM CHLORIDE 0.9% 1,000 ML IV SCH ×4 (15:03→22:48)
[2021-05-07 15:07] LABS: Arterial Base Excess iSTAT -4 MMOL/L (-2.5-2.5); Arterial Bicarbonate iSTAT 21.5 MMOL/L (20-26); Arterial O2 Saturation iSTAT 100 % (95-100); Arterial PCO2 iSTAT 39 MM HG (35-48); Arterial PO2 iSTAT 307 MM HG (80-95); Arterial Total CO2 iSTAT 23 MMO/L (23-27); Arterial pH iSTAT 7.352 (7.35-7.45)
[2021-05-07 15:24] LABS: Alanine Aminotransferase 30 U/L (16-61); Albumin 2.6 G/DL (3.4-5.0); Alkaline Phosphatase 129 U/L (45-117); Aspartate Amino Transferase 25 U/L (0-37); Bilirubin,Total < 0.39 MG/DL (0.20-1.00); Blood Urea Nitrogen 43 MG/DL (7-18); Calcium 8.8 MG/DL (8.5-10.1); Carbon Dioxide 21 MMOL/L (21-32); Estimated Glom Filtration Rate 32 ML/MIN; Osmolality,Calculated 312.7 MOS/KG (273-304); Potassium 3.8 MMOL/L (3.5-5.1); Sodium 138 MMOL/L (136-145); Total Protein 7.8 G/DL (6.4-8.2)
[2021-05-07 15:26] LABS: Glucose 589 MG/DL (74-106)
[2021-05-07] MEDS: POTASSIUM CHLORIDE RIDER 10 MEQ/100 ML PREMIX IV PRN ×4 (15:35→22:56)
[2021-05-07 16:14] LABS: Barbiturates Screen,Urine Negative (Negative); Benzodiazepines Screen,Urine Positive (Negative); Cannabinoid Screen,Urine Negative (Negative); Opiate Screen,Urine Negative (Negative); Phencyclidine Screen,Urine Negative (Negative)
[2021-05-07] MEDS: ENOXAPARIN 30 MG/0.3 ML SYRINGE SUBCUT SCH (16:19)
[2021-05-07 18:35] LABS: Calcium 8.3 MG/DL (8.5-10.1); Osmolality,Calculated 309.1 MOS/KG (273-304); Potassium 3.8 MMOL/L (3.5-5.1)
[2021-05-08 00:12] LABS: Calcium 8.3 MG/DL (8.5-10.1); Potassium 3.7 MMOL/L (3.5-5.1)
[2021-05-08] MEDS: SODIUM CHLOR 0.45% KCL 20 MEQ 20 MEQ/1,000 ML BAG IV SCH ×4 (00:20→08:46)
[2021-05-08 03:55] LABS: Alanine Aminotransferase 23 U/L (16-61); Albumin 2.1 G/DL (3.4-5.0); Alkaline Phosphatase 98 U/L (45-117); Aspartate Amino Transferase 14 U/L (0-37); Bilirubin,Total < 0.39 MG/DL (0.20-1.00); Blood Urea Nitrogen 36 MG/DL (7-18); Calcium 8.7 MG/DL (8.5-10.1); Estimated Glom Filtration Rate 34 ML/MIN; Glucose 156 MG/DL (74-106); Potassium 3.7 MMOL/L (3.5-5.1); Total Protein 6.3 G/DL (6.4-8.2)
[2021-05-08 04:10] LABS: ABG HCO3 20.4 MMOL/L (20-26); ABG Oxygen Saturation 98.9 % (95-100); ABG PH 7.324 (7.35-7.45); ABG TCO2 17.9 MMOL/L (23-27)
[2021-05-08 04:24] LABS: Osmolality,Calculated 296.8 MOS/KG (273-304); Sodium 144 MMOL/L (136-145)
[2021-05-08 04:27] LABS: Carbon Dioxide 23 MMOL/L (21-32)
[2021-05-08 04:52] LABS: Basophils % 0.2 % (0.0-0.8); Eosinophils # 0.2 10*3/uL (0.0-0.87); Eosinophils % 1.6 % (0.00-10.9); Hematocrit 35.3 VOL% (42.0-52.0); Hemoglobin 11.7 GM/DL (14.0-18.0); Immature Granulocytes % 0.4 %; Immature Granulocytes Absolute 0.04 #; Lymphocytes % 9.4 % (21.2-54.2); Mean Corpuscular HGB Conc 33.1 GM/DL (32-36); Mean Corpuscular Volume 91.2 FL (87-102); Mean Platelet Volume 10.4 FL (9.6-12.0); Monocytes % 10.1 % (1.7-12.7); Neutrophils % 78.3 % (38.7-73.9); Platelet Count 188 T/CUMM (130-400); Red Blood Count 3.87 MC/CUMM (3.8-5.5); Red Cell Distribution Width 12.3 % (9.3-17.3); White Blood Count 10.8 T/CUMM (4-12)
[2021-05-08] MEDS ORDERED: DEXT 5% NACL 0.45% KCL 20 MEQ 20 MEQ/1,000 ML BAG IV SCH (05:00)
[2021-05-08 05:04] LABS: Calcium 8.2 MG/DL (8.5-10.1); Osmolality,Calculated 301.6 MOS/KG (273-304); Potassium 3.7 MMOL/L (3.5-5.1)
[2021-05-08 05:14] LABS: Band Neutrophils 8 % (0-10); Eosinophils 4 % (0-10); Lymphocytes 11 % (20-55); Platelet Estimate Normal; Segmented Neutrophils 67 % (50-85); Total Cells Counted 100
[2021-05-08 05:15] LABS: Anisocytosis Slight; Tear Drop Cells Few
[2021-05-08 07:39] LABS: Calcium 8.1 MG/DL (8.5-10.1); Osmolality,Calculated 304.4 MOS/KG (273-304); Potassium 3.6 MMOL/L (3.5-5.1)
[2021-05-08] MEDS ORDERED: SODIUM CHLORIDE 0.45% 1,000 ML IV SCH (08:00)
[2021-05-08 08:34] LABS: Arterial Base Excess iSTAT -4 MMOL/L (-2.5-2.5); Arterial Bicarbonate iSTAT 21.2 MMOL/L (20-26); Arterial O2 Saturation iSTAT 99 % (95-100); Arterial PCO2 iSTAT 40 MM HG (35-48); Arterial PO2 iSTAT 162 MM HG (80-95); Arterial Total CO2 iSTAT 22 MMO/L (23-27); Arterial pH iSTAT 7.337 (7.35-7.45)
[2021-05-08] MEDS ORDERED: DEXTROSE 50% 25 GM/50 ML VIAL IV PRN (09:19)
[2021-05-08] MEDS ORDERED: GLUCAGON 1 MG VIAL IM PRN ×2 (09:19→09:22)
[2021-05-08] MEDS ORDERED: DEXTROSE 10% 250 ML BAG IV PRN (09:35)
[2021-05-08] MEDS: SODIUM CHLORIDE 0.9% 1,000 ML IV SCH ×2 (09:46→18:33)
[2021-05-08] MEDS ORDERED: POTASSIUM PHOS/SOD PHOS POWDER 250 MG PACK PO ONE (10:40)
[2021-05-08] MEDS: INSULIN GLARGINE 100 UNIT/ML SUBCUT SCH (11:34)
[2021-05-08] MEDS: INSULIN LISPRO 100 UNIT/ML SUBCUT SCH ×3 (11:34→21:51)
[2021-05-08] MEDS: cefTRIAXone 1,000 MG in SODIUM CHLORIDE 0.9% 100 ML IV SCH (11:35)
[2021-05-08] MEDS ORDERED: amLODIPine 10 MG TABLET PO ONE (12:26)
[2021-05-08] MEDS: AZITHROMYCIN INJ 500 MG in SODIUM CHLORIDE 0.9% 250 ML IV SCH (12:52)
[2021-05-08] MEDS: ENOXAPARIN 30 MG/0.3 ML SYRINGE SUBCUT SCH (14:31)
[2021-05-08 15:22] LABS: Calcium 8.6 MG/DL (8.5-10.1); Potassium 3.5 MMOL/L (3.5-5.1)
[2021-05-08 18:09] LABS: Calcium 8.2 MG/DL (8.5-10.1); Osmolality,Calculated 292.7 MOS/KG (273-304); Potassium 3.6 MMOL/L (3.5-5.1)
[2021-05-08] MEDS ORDERED: INSULIN GLARGINE 100 UNIT/ML SUBCUT SCH (21:00)
[2021-05-08] MEDS: SERTRALINE 25 MG TABLET PO SCH (21:50)
[2021-05-08] MEDS: SIMVASTATIN 10 MG TABLET PO SCH (21:51)
[2021-05-08 23:54] LABS: Calcium 8.2 MG/DL (8.5-10.1); Osmolality,Calculated 290.8 MOS/KG (273-304); Potassium 3.5 MMOL/L (3.5-5.1)
[2021-05-09 02:06] LABS: Basophils % 0.3 % (0.0-0.8); Eosinophils # 0.3 10*3/uL (0.0-0.87); Hematocrit 32.6 VOL% (42.0-52.0); Hemoglobin 10.9 GM/DL (14.0-18.0); Immature Granulocytes % 0.4 %; Immature Granulocytes Absolute 0.05 #; Lymphocytes # 2.4 10*3/uL (1.4-4.0); Lymphocytes % 17.5 % (21.2-54.2); Mean Corpuscular HGB Conc 33.4 GM/DL (32-36); Mean Corpuscular Volume 91.3 FL (87-102); Mean Platelet Volume 10.5 FL (9.6-12.0); Monocytes % 8.9 % (1.7-12.7); Neutrophils % 70.9 % (38.7-73.9); Platelet Count 166 T/CUMM (130-400); Red Blood Count 3.57 MC/CUMM (3.8-5.5); Red Cell Distribution Width 12.3 % (9.3-17.3); White Blood Count 13.5 T/CUMM (4-12)
[2021-05-09 02:21] LABS: Calcium 8.9 MG/DL (8.5-10.1); Osmolality,Calculated 286.1 MOS/KG (273-304); Potassium 3.4 MMOL/L (3.5-5.1)
[2021-05-09] MEDS: SODIUM CHLORIDE 0.9% 1,000 ML IV SCH ×2 (02:30→11:41)
[2021-05-09 02:44] LABS: Anisocytosis Slight; Band Neutrophils 6 % (0-10); Eosinophils 2 % (0-10); Lymphocytes 22 % (20-55); Platelet Estimate Normal; Segmented Neutrophils 63 % (50-85); Total Cells Counted 100
[2021-05-09 02:45] LABS: Macrocytosis Slight; Tear Drop Cells Few
[2021-05-09 04:36] LABS: Arterial Base Excess iSTAT -6 MMOL/L (-2.5-2.5); Arterial Bicarbonate iSTAT 18.9 MMOL/L (20-26); Arterial O2 Saturation iSTAT 96 % (95-100); Arterial PCO2 iSTAT 35 MM HG (35-48); Arterial PO2 iSTAT 90 MM HG (80-95); Arterial Total CO2 iSTAT 20 MMO/L (23-27); Arterial pH iSTAT 7.335 (7.35-7.45)
[2021-05-09 05:27] LABS: Alanine Aminotransferase 11 U/L (16-61); Albumin 1.7 G/DL (3.4-5.0); Alkaline Phosphatase 76 U/L (45-117); Aspartate Amino Transferase 16 U/L (0-37); Bilirubin,Total < 0.39 MG/DL (0.20-1.00); Blood Urea Nitrogen 25 MG/DL (7-18); Calcium 8.8 MG/DL (8.5-10.1); Carbon Dioxide 22 MMOL/L (21-32); Estimated Glom Filtration Rate 38 ML/MIN; Glucose 82 MG/DL (74-106); Osmolality,Calculated 285.1 MOS/KG (273-304); Potassium 3.3 MMOL/L (3.5-5.1); Sodium 142 MMOL/L (136-145); Total Protein 5.9 G/DL (6.4-8.2)
[2021-05-09 06:39] LABS: Calcium 8.3 MG/DL (8.5-10.1); Osmolality,Calculated 289.7 MOS/KG (273-304); Potassium 3.4 MMOL/L (3.5-5.1)
[2021-05-09] MEDS: INSULIN LISPRO 100 UNIT/ML SUBCUT SCH ×4 (07:46→21:40)
[2021-05-09] MEDS ORDERED: POTASSIUM CHLORIDE 20 MEQ TABLET PO ONE (08:30)
[2021-05-09 08:50] LABS: Ferritin 167.1 ng/mL (26-388)
[2021-05-09 09:04] LABS: Folate 10.66 NG/ML (5.38-24.0)
[2021-05-09 11:01] LABS: Calcium 8.1 MG/DL (8.5-10.1); Osmolality,Calculated 296.8 MOS/KG (273-304); Potassium 3.5 MMOL/L (3.5-5.1)
[2021-05-09] MEDS: INSULIN GLARGINE 100 UNIT/ML SUBCUT SCH (11:40)
[2021-05-09] MEDS: amLODIPine 10 MG TABLET PO SCH (11:41)
[2021-05-09] MEDS: ASPIRIN CHEW 81 MG TABLET PO SCH (11:41)
[2021-05-09] MEDS: ISOSORBIDE MONONITRATE 60 MG TABLET PO SCH (11:41)
[2021-05-09] MEDS: cefTRIAXone 1,000 MG in SODIUM CHLORIDE 0.9% 100 ML IV SCH (13:07)
[2021-05-09] MEDS: AZITHROMYCIN INJ 500 MG in SODIUM CHLORIDE 0.9% 250 ML IV SCH (14:12)
[2021-05-09] MEDS: ENOXAPARIN 30 MG/0.3 ML SYRINGE SUBCUT SCH (14:12)
[2021-05-09] MEDS: levETIRAcetam 250 MG TABLET PO SCH (21:40)
[2021-05-09] MEDS: SIMVASTATIN 10 MG TABLET PO SCH (21:40)
[2021-05-09] MEDS: SERTRALINE 25 MG TABLET PO SCH (21:40)
[2021-05-10] MEDS: SODIUM CHLORIDE 0.9% 1,000 ML IV SCH ×3 (00:33→08:41)
[2021-05-10 05:44] LABS: Basophils % 0.4 % (0.0-0.8); Eosinophils # 0.3 10*3/uL (0.0-0.87); Eosinophils % 3.8 % (0.00-10.9); Hematocrit 29.7 VOL% (42.0-52.0); Hemoglobin 9.9 GM/DL (14.0-18.0); Immature Granulocytes % 0.6 %; Immature Granulocytes Absolute 0.04 #; Lymphocytes # 1.5 10*3/uL (1.4-4.0); Lymphocytes % 21.6 % (21.2-54.2); Mean Corpuscular HGB Conc 33.3 GM/DL (32-36); Mean Corpuscular Volume 91.1 FL (87-102); Mean Platelet Volume 10.6 FL (9.6-12.0); Monocytes % 8.5 % (1.7-12.7); Neutrophils % 65.1 % (38.7-73.9); Platelet Count 167 T/CUMM (130-400); Red Blood Count 3.26 MC/CUMM (3.8-5.5); Red Cell Distribution Width 12.4 % (9.3-17.3); White Blood Count 6.8 T/CUMM (4-12)
[2021-05-10 06:12] LABS: Alanine Aminotransferase 15 U/L (16-61); Albumin 1.6 G/DL (3.4-5.0); Alkaline Phosphatase 70 U/L (45-117); Aspartate Amino Transferase 14 U/L (0-37); Bilirubin,Total < 0.39 MG/DL (0.20-1.00); Blood Urea Nitrogen 23 MG/DL (7-18); Calcium 8.1 MG/DL (8.5-10.1); Carbon Dioxide 18 MMOL/L (21-32); Estimated Glom Filtration Rate 38 ML/MIN; Glucose 142 MG/DL (74-106); Osmolality,Calculated 291.8 MOS/KG (273-304); Potassium 3.7 MMOL/L (3.5-5.1); Sodium 144 MMOL/L (136-145); Total Protein 5.8 G/DL (6.4-8.2)
[2021-05-10] MEDS: ISOSORBIDE MONONITRATE 60 MG TABLET PO SCH (08:39)
[2021-05-10] MEDS: INSULIN GLARGINE 100 UNIT/ML SUBCUT SCH (08:39)
[2021-05-10] MEDS: amLODIPine 10 MG TABLET PO SCH (08:39)
[2021-05-10] MEDS: INSULIN LISPRO 100 UNIT/ML SUBCUT SCH ×4 (08:39→21:34)
[2021-05-10] MEDS: ASPIRIN CHEW 81 MG TABLET PO SCH (08:39)
[2021-05-10] MEDS: levETIRAcetam 250 MG TABLET PO SCH ×2 (08:39→21:34)
[2021-05-10] MEDS: FERRIC GLUCONATE COMPLEX 125 MG in SODIUM CHLORIDE 0.9% 100 ML IV SCH (08:40)
[2021-05-10] MEDS: cefTRIAXone 1,000 MG in SODIUM CHLORIDE 0.9% 100 ML IV SCH (11:49)
[2021-05-10] MEDS: AZITHROMYCIN INJ 500 MG in SODIUM CHLORIDE 0.9% 250 ML IV SCH (12:18)
[2021-05-10] MEDS: ENOXAPARIN 30 MG/0.3 ML SYRINGE SUBCUT SCH (17:54)
[2021-05-10] MEDS: INSULIN NPH 100 UNIT/ML SUBCUT SCH (17:55)
[2021-05-10] MEDS: SERTRALINE 25 MG TABLET PO SCH (21:34)
[2021-05-10] MEDS: SIMVASTATIN 10 MG TABLET PO SCH (21:34)
[2021-05-11 05:48] LABS: Basophils % 0.4 % (0.0-0.8); Eosinophils # 0.3 10*3/uL (0.0-0.87); Eosinophils % 5.1 % (0.00-10.9); Hemoglobin 10.6 GM/DL (14.0-18.0); Immature Granulocytes % 0.7 %; Immature Granulocytes Absolute 0.04 #; Lymphocytes % 17.4 % (21.2-54.2); Mean Corpuscular HGB Conc 33.1 GM/DL (32-36); Mean Corpuscular Volume 90.1 FL (87-102); Mean Platelet Volume 10.6 FL (9.6-12.0); Monocytes % 11.6 % (1.7-12.7); Neutrophils % 64.8 % (38.7-73.9); Platelet Count 177 T/CUMM (130-400); Red Blood Count 3.55 MC/CUMM (3.8-5.5); Red Cell Distribution Width 11.9 % (9.3-17.3); White Blood Count 5.5 T/CUMM (4-12)
[2021-05-11 06:07] LABS: Calcium 8.2 MG/DL (8.5-10.1); Osmolality,Calculated 288.8 MOS/KG (273-304); Potassium 3.6 MMOL/L (3.5-5.1)
[2021-05-11] MEDS: INSULIN LISPRO 100 UNIT/ML SUBCUT SCH ×4 (07:37→20:56)
[2021-05-11] MEDS: amLODIPine 10 MG TABLET PO SCH (09:26)
[2021-05-11] MEDS: FERRIC GLUCONATE COMPLEX 125 MG in SODIUM CHLORIDE 0.9% 100 ML IV SCH (09:26)
[2021-05-11] MEDS: ASPIRIN CHEW 81 MG TABLET PO SCH (09:26)
[2021-05-11] MEDS: INSULIN NPH 100 UNIT/ML SUBCUT SCH ×2 (09:26→17:12)
[2021-05-11] MEDS: ISOSORBIDE MONONITRATE 60 MG TABLET PO SCH (09:26)
[2021-05-11] MEDS: levETIRAcetam 250 MG TABLET PO SCH ×2 (09:26→20:55)
[2021-05-11] MEDS: cefTRIAXone 1,000 MG in SODIUM CHLORIDE 0.9% 100 ML IV SCH (12:45)
[2021-05-11] MEDS: AZITHROMYCIN INJ 500 MG in SODIUM CHLORIDE 0.9% 250 ML IV SCH (12:46)
[2021-05-11] MEDS: ENOXAPARIN 30 MG/0.3 ML SYRINGE SUBCUT SCH (17:12)
[2021-05-11] MEDS: SERTRALINE 25 MG TABLET PO SCH (20:55)
[2021-05-11] MEDS: SIMVASTATIN 10 MG TABLET PO SCH (20:55)
[2021-05-12] MEDS: INSULIN LISPRO 100 UNIT/ML SUBCUT SCH (08:11)
[2021-05-12] MEDS: amLODIPine 10 MG TABLET PO SCH (08:12)
[2021-05-12] MEDS: FERRIC GLUCONATE COMPLEX 125 MG in SODIUM CHLORIDE 0.9% 100 ML IV SCH (08:12)
[2021-05-12] MEDS: levETIRAcetam 250 MG TABLET PO SCH (08:12)
[2021-05-12] MEDS: INSULIN NPH 100 UNIT/ML SUBCUT SCH (08:12)
[2021-05-12] MEDS: ISOSORBIDE MONONITRATE 60 MG TABLET PO SCH (08:12)
[2021-05-12] MEDS: ASPIRIN CHEW 81 MG TABLET PO SCH (08:12)
[2021-05-12 08:30] VITALS: BP 158/87
== END 2021-05-12 09:56 | disposition home or self-care (01) | DRG 637 ==
LOC: N.ICU 13:25 → SUATTDRO 13:25 → N.3E 05-08 14:35
PROVIDERS: ADMIT Internal Medicine; ATTEND Internal Medicine

== ENCOUNTER 2021-06-02 07:49 | Inpatient (IN) ==
[2021-06-02] MEDS: SODIUM CHLORIDE 0.9% 1,000 ML IV SCH ×2 (09:30→22:54)
[2021-06-02] MEDS ORDERED: MIDAZOLAM 100 MG in SODIUM CHLORIDE 0.9% 80 ML IV PRN (09:34)
[2021-06-02] MEDS ORDERED: ALBUTEROL 2.5 MG/3 ML NEB RESP TX PRN ×2 (09:35→09:37)
[2021-06-02] MEDS ORDERED: DOCUSATE SODIUM 100 MG CAPSULE PO PRN (09:37)
[2021-06-02] MEDS ORDERED: GLUCAGON 1 MG VIAL IM PRN (09:42)
[2021-06-02] MEDS: hydrALAZINE 20 MG/1 ML VIAL IV PRN (09:57)
[2021-06-02 10:06] LABS: Basophils % 0.1 % (0.0-0.8); Eosinophils # 0.1 10*3/uL (0.0-0.87); Eosinophils % 0.9 % (0.00-10.9); Hematocrit 33.4 VOL% (42.0-52.0); Hemoglobin 11.7 GM/DL (14.0-18.0); Immature Granulocytes % 0.6 %; Immature Granulocytes Absolute 0.04 #; Lymphocytes # 1.4 10*3/uL (1.4-4.0); Mean Platelet Volume 10.6 FL (9.6-12.0); Monocytes # 0.5 10*3/uL (0.11-0.8); Monocytes % 6.9 % (1.7-12.7); Neutrophils % 70.5 % (38.7-73.9); Platelet Count 261 T/CUMM (130-400); Red Blood Count 3.93 MC/CUMM (3.8-5.5); Red Cell Distribution Width 11.9 % (9.3-17.3); White Blood Count 6.8 T/CUMM (4-12)
[2021-06-02 10:26] LABS: Alanine Aminotransferase 46 U/L (16-61); Albumin 2.3 G/DL (3.4-5.0); Alkaline Phosphatase 154 U/L (45-117); Aspartate Amino Transferase 20 U/L (0-37); Bilirubin,Total < 0.39 MG/DL (0.20-1.00); Blood Urea Nitrogen 35 MG/DL (7-18); Calcium 8.9 MG/DL (8.5-10.1); Carbon Dioxide 23 MMOL/L (21-32); Chloride 106 MMOL/L (98-107); Estimated Glom Filtration Rate 27 ML/MIN; Osmolality,Calculated 309.1 MOS/KG (273-304); Potassium 3.6 MMOL/L (3.5-5.1); Sodium 135 MMOL/L (136-145); Total Protein 7.3 G/DL (6.4-8.2)
[2021-06-02 10:28] LABS: Glucose 674 MG/DL (74-106)
[2021-06-02] MEDS ORDERED: INSULIN GLARGINE 100 UNIT/ML SUBCUT ONE (10:37)
[2021-06-02] MEDS: INSULIN LISPRO 100 UNIT/ML SUBCUT SCH ×5 (10:54→23:22)
[2021-06-02] MEDS: FAMOTIDINE 20 MG/2 ML VIAL IV SCH ×2 (11:21→21:44)
[2021-06-02 11:23] LABS: Arterial Base Excess iSTAT 0 MMOL/L (-2.5-2.5); Arterial Bicarbonate iSTAT 25.1 MMOL/L (20-26); Arterial O2 Saturation iSTAT 100 % (95-100); Arterial PCO2 iSTAT 44 MM HG (35-48); Arterial PO2 iSTAT 618 MM HG (80-95); Arterial Total CO2 iSTAT 26 MMO/L (23-27); Arterial pH iSTAT 7.364 (7.35-7.45)
[2021-06-02] MEDS: NICOTINE 21 MG/24 HR PATCH TRANSDERM PRN (11:23)
[2021-06-02] MEDS: ENOXAPARIN 30 MG/0.3 ML SYRINGE SUBCUT SCH (11:23)
[2021-06-02 12:08] LABS: RBC,Urine <1 /HPF (0-4)
[2021-06-02 12:09] LABS: Glucose,Urine (UA) >1000 mg/dL (Negative); Protein,Urine >=300 mg/dL (Negative); Urine Appearance Clear (Clear); Urine Color Straw (Yellow); Urine pH 5.5 (4.5-8.0)
[2021-06-02 12:10] LABS: Bilirubin,Urine Negative (Negative); Blood, Urine Trace mg/dL (Negative); Ketones,Urine Trace mg/dL (Negative); Nitrite,Urine Negative (Negative); Urine Urobilinogen 0.2 eU/dL (<2.0)
[2021-06-02 17:10] LABS: Calcium 9.3 MG/DL (8.5-10.1); Osmolality,Calculated 295.6 MOS/KG (273-304); Potassium 2.8 MMOL/L (3.5-5.1)
[2021-06-02] MEDS: POTASSIUM CHLORIDE RIDER 10 MEQ/100 ML PREMIX IV PRN ×4 (18:33→23:52)
[2021-06-02] MEDS: DEXTROSE 10% 250 ML BAG IV PRN ×2 (18:49→23:20)
[2021-06-02] MEDS ORDERED: HEPARIN DRIP 25,000 UNITS/500 ML PREMIX IV SCH (19:30)
[2021-06-03] MEDS: hydrALAZINE 20 MG/1 ML VIAL IV PRN ×2 (00:28→09:58)
[2021-06-03] MEDS: POTASSIUM CHLORIDE RIDER 10 MEQ/100 ML PREMIX IV PRN ×3 (01:00→05:59)
[2021-06-03 03:25] LABS: Arterial Base Excess iSTAT -4 MMOL/L (-2.5-2.5); Arterial Bicarbonate iSTAT 19.7 MMOL/L (20-26); Arterial O2 Saturation iSTAT 99 % (95-100); Arterial PCO2 iSTAT 29 MM HG (35-48); Arterial PO2 iSTAT 155 MM HG (80-95); Arterial Total CO2 iSTAT 21 MMO/L (23-27); Arterial pH iSTAT 7.434 (7.35-7.45)
[2021-06-03] MEDS: INSULIN LISPRO 100 UNIT/ML SUBCUT SCH ×4 (03:43→17:49)
[2021-06-03 04:23] LABS: Basophils % 0.4 % (0.0-0.8); Eosinophils # 0.4 10*3/uL (0.0-0.87); Eosinophils % 3.2 % (0.00-10.9); Hematocrit 31.1 VOL% (42.0-52.0); Hemoglobin 10.5 GM/DL (14.0-18.0); Immature Granulocytes % 0.5 %; Immature Granulocytes Absolute 0.05 #; Lymphocytes # 2.4 10*3/uL (1.4-4.0); Lymphocytes % 22.3 % (21.2-54.2); Mean Corpuscular HGB Conc 33.8 GM/DL (32-36); Mean Corpuscular Volume 86.1 FL (87-102); Mean Platelet Volume 10.3 FL (9.6-12.0); Monocytes # 0.8 10*3/uL (0.11-0.8); Monocytes % 7.7 % (1.7-12.7); Neutrophils % 65.9 % (38.7-73.9); Platelet Count 253 T/CUMM (130-400); Red Blood Count 3.61 MC/CUMM (3.8-5.5); Red Cell Distribution Width 11.9 % (9.3-17.3); White Blood Count 10.8 T/CUMM (4-12)
[2021-06-03 04:41] LABS: Alanine Aminotransferase 31 U/L (16-61); Albumin 1.9 G/DL (3.4-5.0); Alkaline Phosphatase 108 U/L (45-117); Aspartate Amino Transferase 14 U/L (0-37); Bilirubin,Total < 0.39 MG/DL (0.20-1.00); Blood Urea Nitrogen 27 MG/DL (7-18); Calcium 8.7 MG/DL (8.5-10.1); Carbon Dioxide 22 MMOL/L (21-32); Chloride 118 MMOL/L (98-107); Cholesterol 159 MG/DL (50-200); Estimated Glom Filtration Rate 33 ML/MIN; Glucose 137 MG/DL (74-106); HDL Cholesterol 60 MG/DL (40-60); Osmolality,Calculated 292.8 MOS/KG (273-304); Potassium 3.2 MMOL/L (3.5-5.1); Risk Ratio 2.65; Sodium 144 MMOL/L (136-145); Total Protein 6.2 G/DL (6.4-8.2); Triglycerides 73 MG/DL (2-150); VLDL Cholesterol 14.6 MG/DL
[2021-06-03] MEDS: SODIUM CHLORIDE 0.9% 1,000 ML IV SCH ×3 (06:06→15:00)
[2021-06-03] MEDS ORDERED: POTASSIUM CHLORIDE 20 MEQ TABLET PO ONE (07:21)
[2021-06-03] MEDS ORDERED: INSULIN GLARGINE 100 UNIT/ML SUBCUT SCH (09:00)
[2021-06-03] MEDS: FAMOTIDINE 20 MG/2 ML VIAL IV SCH (09:00)
[2021-06-03] MEDS: NICOTINE 21 MG/24 HR PATCH TRANSDERM PRN (11:41)
[2021-06-03] MEDS: ENOXAPARIN 30 MG/0.3 ML SYRINGE SUBCUT SCH (11:42)
[2021-06-03] MEDS ORDERED: INSULIN LISPRO 100 UNIT/ML SUBCUT SCH (12:00)
[2021-06-03] MEDS: INSULIN GLARGINE 100 UNIT/ML SUBCUT SCH (20:07)
[2021-06-03] MEDS: SIMVASTATIN 40 MG TABLET PO SCH (20:07)
[2021-06-03] MEDS: SERTRALINE 25 MG TABLET PO SCH (20:08)
[2021-06-04] MEDS: INSULIN LISPRO 100 UNIT/ML SUBCUT SCH ×4 (00:53→17:12)
[2021-06-04] MEDS: hydrALAZINE 20 MG/1 ML VIAL IV PRN ×2 (01:14→20:17)
[2021-06-04] MEDS: SODIUM CHLORIDE 0.9% 1,000 ML IV SCH (04:01)
[2021-06-04 04:15] LABS: Arterial Base Excess iSTAT -4 MMOL/L (-2.5-2.5); Arterial Bicarbonate iSTAT 19.8 MMOL/L (20-26); Arterial O2 Saturation iSTAT 100 % (95-100); Arterial PCO2 iSTAT 31 MM HG (35-48); Arterial PO2 iSTAT 174 MM HG (80-95); Arterial Total CO2 iSTAT 21 MMO/L (23-27); Arterial pH iSTAT 7.409 (7.35-7.45)
[2021-06-04 05:14] LABS: Basophils % 0.5 % (0.0-0.8); Eosinophils # 0.4 10*3/uL (0.0-0.87); Hematocrit 31.3 VOL% (42.0-52.0); Hemoglobin 10.6 GM/DL (14.0-18.0); Immature Granulocytes % 0.2 %; Immature Granulocytes Absolute 0.02 #; Lymphocytes # 2.3 10*3/uL (1.4-4.0); Lymphocytes % 26.4 % (21.2-54.2); Mean Corpuscular HGB Conc 33.9 GM/DL (32-36); Mean Corpuscular Volume 86.7 FL (87-102); Mean Platelet Volume 9.9 FL (9.6-12.0); Monocytes # 0.6 10*3/uL (0.11-0.8); Monocytes % 7.3 % (1.7-12.7); Neutrophils % 60.6 % (38.7-73.9); Platelet Count 252 T/CUMM (130-400); Red Blood Count 3.61 MC/CUMM (3.8-5.5); Red Cell Distribution Width 12.4 % (9.3-17.3); White Blood Count 8.6 T/CUMM (4-12)
[2021-06-04 05:43] LABS: Calcium 8.8 MG/DL (8.5-10.1); Osmolality,Calculated 296.3 MOS/KG (273-304); Potassium 3.3 MMOL/L (3.5-5.1)
[2021-06-04] MEDS: POTASSIUM CHLORIDE RIDER 10 MEQ/100 ML PREMIX IV PRN ×6 (07:03→15:25)
[2021-06-04] MEDS: DEXMEDETOMIDINE 200 MCG in SODIUM CHLORIDE 0.9% 48 ML IV PRN ×4 (08:40→23:21)
[2021-06-04] MEDS: FAMOTIDINE 20 MG/2 ML VIAL IV SCH (09:43)
[2021-06-04] MEDS: ASPIRIN CHEW 81 MG TABLET PO SCH (09:43)
[2021-06-04] MEDS: amLODIPine 10 MG TABLET PO SCH (09:43)
[2021-06-04] MEDS: ISOSORBIDE MONONITRATE 60 MG TABLET PO SCH (09:43)
[2021-06-04] MEDS: NICOTINE 21 MG/24 HR PATCH TRANSDERM PRN (11:49)
[2021-06-04] MEDS: ENOXAPARIN 30 MG/0.3 ML SYRINGE SUBCUT SCH (11:49)
[2021-06-04] MEDS: SERTRALINE 25 MG TABLET PO SCH (20:14)
[2021-06-04] MEDS: SIMVASTATIN 40 MG TABLET PO SCH (20:14)
[2021-06-04] MEDS: INSULIN GLARGINE 100 UNIT/ML SUBCUT SCH (20:15)
[2021-06-05] MEDS: INSULIN LISPRO 100 UNIT/ML SUBCUT SCH ×4 (00:59→18:12)
[2021-06-05 04:17] LABS: Arterial Base Excess iSTAT -5 MMOL/L (-2.5-2.5); Arterial Bicarbonate iSTAT 18.9 MMOL/L (20-26); Arterial O2 Saturation iSTAT 100 % (95-100); Arterial PCO2 iSTAT 29 MM HG (35-48); Arterial PO2 iSTAT 172 MM HG (80-95); Arterial Total CO2 iSTAT 20 MMO/L (23-27); Arterial pH iSTAT 7.421 (7.35-7.45)
[2021-06-05] MEDS: DEXMEDETOMIDINE 200 MCG in SODIUM CHLORIDE 0.9% 48 ML IV PRN ×5 (04:22→23:01)
[2021-06-05 05:51] LABS: Basophils % 0.4 % (0.0-0.8); Eosinophils # 0.4 10*3/uL (0.0-0.87); Eosinophils % 4.7 % (0.00-10.9); Hematocrit 32.9 VOL% (42.0-52.0); Hemoglobin 10.9 GM/DL (14.0-18.0); Immature Granulocytes % 0.5 %; Immature Granulocytes Absolute 0.04 #; Lymphocytes # 1.9 10*3/uL (1.4-4.0); Lymphocytes % 21.7 % (21.2-54.2); Mean Corpuscular HGB Conc 33.1 GM/DL (32-36); Mean Platelet Volume 10.7 FL (9.6-12.0); Monocytes # 0.7 10*3/uL (0.11-0.8); Monocytes % 8.1 % (1.7-12.7); Neutrophils % 64.6 % (38.7-73.9); Platelet Count 244 T/CUMM (130-400); Red Blood Count 3.74 MC/CUMM (3.8-5.5); Red Cell Distribution Width 12.5 % (9.3-17.3); White Blood Count 8.5 T/CUMM (4-12)
[2021-06-05 05:53] LABS: Calcium 9.4 MG/DL (8.5-10.1); Osmolality,Calculated 295.4 MOS/KG (273-304); Potassium 4.3 MMOL/L (3.5-5.1)
[2021-06-05] MEDS ORDERED: cefTRIAXone 1,000 MG in SODIUM CHLORIDE 0.9% 100 ML IV SCH (08:00)
[2021-06-05] MEDS: FAMOTIDINE 20 MG/2 ML VIAL IV SCH (09:01)
[2021-06-05] MEDS: amLODIPine 10 MG TABLET PO SCH (09:01)
[2021-06-05] MEDS: ISOSORBIDE MONONITRATE 60 MG TABLET PO SCH (09:01)
[2021-06-05] MEDS: ASPIRIN CHEW 81 MG TABLET PO SCH (09:01)
[2021-06-05] MEDS: ENOXAPARIN 30 MG/0.3 ML SYRINGE SUBCUT SCH (11:35)
[2021-06-05] MEDS: NICOTINE 21 MG/24 HR PATCH TRANSDERM PRN (11:36)
[2021-06-05] MEDS: CLINDAMYCIN INJ 600 MG/50 ML PREMIX IV SCH ×2 (13:45→21:16)
[2021-06-05] MEDS: SIMVASTATIN 40 MG TABLET PO SCH (21:16)
[2021-06-05] MEDS: SERTRALINE 25 MG TABLET PO SCH (21:16)
[2021-06-05] MEDS: INSULIN GLARGINE 100 UNIT/ML SUBCUT SCH (21:17)
[2021-06-06] MEDS: INSULIN LISPRO 100 UNIT/ML SUBCUT SCH ×4 (00:18→18:55)
[2021-06-06 04:01] LABS: Arterial Base Excess iSTAT -5 MMOL/L (-2.5-2.5); Arterial Bicarbonate iSTAT 18.3 MMOL/L (20-26); Arterial O2 Saturation iSTAT 100 % (95-100); Arterial PCO2 iSTAT 27 MM HG (35-48); Arterial PO2 iSTAT 173 MM HG (80-95); Arterial Total CO2 iSTAT 19 MMO/L (23-27); Arterial pH iSTAT 7.442 (7.35-7.45)
[2021-06-06] MEDS: DEXMEDETOMIDINE 200 MCG in SODIUM CHLORIDE 0.9% 48 ML IV PRN (04:16)
[2021-06-06] MEDS: CLINDAMYCIN INJ 600 MG/50 ML PREMIX IV SCH ×3 (05:54→21:06)
[2021-06-06 06:20] LABS: Basophils % 0.2 % (0.0-0.8); Eosinophils # 0.3 10*3/uL (0.0-0.87); Eosinophils % 3.4 % (0.00-10.9); Hematocrit 25.6 VOL% (42.0-52.0); Hemoglobin 8.4 GM/DL (14.0-18.0); Immature Granulocytes % 1.1 %; Immature Granulocytes Absolute 0.09 #; Lymphocytes # 1.3 10*3/uL (1.4-4.0); Lymphocytes % 16.4 % (21.2-54.2); Mean Corpuscular HGB Conc 32.8 GM/DL (32-36); Mean Corpuscular Volume 90.8 FL (87-102); Mean Platelet Volume 11.9 FL (9.6-12.0); Monocytes # 0.6 10*3/uL (0.11-0.8); Monocytes % 6.9 % (1.7-12.7); Platelet Count 105 T/CUMM (130-400); Red Blood Count 2.82 MC/CUMM (3.8-5.5); Red Cell Distribution Width 13.2 % (9.3-17.3); White Blood Count 8.2 T/CUMM (4-12)
[2021-06-06 06:38] LABS: Hypochromia 1+; Microcytosis 1+
[2021-06-06 09:45] LABS: Calcium 8.8 MG/DL (8.5-10.1); Osmolality,Calculated 301.1 MOS/KG (273-304); Potassium 3.6 MMOL/L (3.5-5.1)
[2021-06-06] MEDS: ASPIRIN CHEW 81 MG TABLET PO SCH (10:13)
[2021-06-06] MEDS: amLODIPine 10 MG TABLET PO SCH (10:13)
[2021-06-06] MEDS: FAMOTIDINE 20 MG/2 ML VIAL IV SCH (10:14)
[2021-06-06] MEDS: ENOXAPARIN 30 MG/0.3 ML SYRINGE SUBCUT SCH (14:00)
[2021-06-06] MEDS: ACETAMINOPHEN 325 MG TABLET PO PRN (17:10)
[2021-06-06] MEDS: levETIRAcetam 250 MG TABLET PO SCH (21:09)
[2021-06-06] MEDS: SERTRALINE 25 MG TABLET PO SCH (21:09)
[2021-06-06] MEDS: SIMVASTATIN 40 MG TABLET PO SCH (21:09)
[2021-06-06] MEDS: INSULIN GLARGINE 100 UNIT/ML SUBCUT SCH (21:10)
[2021-06-07] MEDS: INSULIN LISPRO 100 UNIT/ML SUBCUT SCH ×5 (00:29→20:02)
[2021-06-07] MEDS ORDERED: LORazepam 2 MG/1 ML VIAL IV PRN (02:14)
[2021-06-07 05:30] LABS: Basophils % 0.4 % (0.0-0.8); Eosinophils # 0.4 10*3/uL (0.0-0.87); Eosinophils % 3.8 % (0.00-10.9); Hematocrit 28.8 VOL% (42.0-52.0); Hemoglobin 9.5 GM/DL (14.0-18.0); Immature Granulocytes % 1.1 %; Lymphocytes # 2.2 10*3/uL (1.4-4.0); Mean Platelet Volume 10.1 FL (9.6-12.0); Monocytes # 0.9 10*3/uL (0.11-0.8); Monocytes % 9.4 % (1.7-12.7); Neutrophils % 62.3 % (38.7-73.9); Platelet Count 240 T/CUMM (130-400); Red Cell Distribution Width 12.6 % (9.3-17.3); White Blood Count 9.4 T/CUMM (4-12)
[2021-06-07 05:37] LABS: Calcium 8.6 MG/DL (8.5-10.1); Osmolality,Calculated 292.6 MOS/KG (273-304); Potassium 3.6 MMOL/L (3.5-5.1)
[2021-06-07] MEDS: CLINDAMYCIN INJ 600 MG/50 ML PREMIX IV SCH (06:26)
[2021-06-07] MEDS: ASPIRIN CHEW 81 MG TABLET PO SCH (10:06)
[2021-06-07] MEDS: levETIRAcetam 250 MG TABLET PO SCH ×2 (10:07→20:03)
[2021-06-07] MEDS: PANTOPRAZOLE 40 MG TABLET PO SCH (10:07)
[2021-06-07] MEDS: CEFUROXIME 250 MG TABLET PO SCH ×2 (10:07→20:03)
[2021-06-07] MEDS: NICOTINE 21 MG/24 HR PATCH TRANSDERM PRN (10:08)
[2021-06-07] MEDS: amLODIPine 10 MG TABLET PO SCH (10:08)
[2021-06-07] MEDS: ENOXAPARIN 30 MG/0.3 ML SYRINGE SUBCUT SCH (12:12)
[2021-06-07] MEDS: hydrALAZINE 20 MG/1 ML VIAL IV PRN (12:26)
[2021-06-07] MEDS: INSULIN GLARGINE 100 UNIT/ML SUBCUT SCH (20:02)
[2021-06-07] MEDS: SERTRALINE 25 MG TABLET PO SCH (20:03)
[2021-06-07] MEDS: SIMVASTATIN 40 MG TABLET PO SCH (20:03)
[2021-06-07] MEDS: ACETAMINOPHEN 325 MG TABLET PO PRN (22:12)
[2021-06-08 05:28] LABS: Basophils % 0.6 % (0.0-0.8); Eosinophils # 0.4 10*3/uL (0.0-0.87); Eosinophils % 5.2 % (0.00-10.9); Hematocrit 29.7 VOL% (42.0-52.0); Hemoglobin 9.5 GM/DL (14.0-18.0); Immature Granulocytes % 1.6 %; Immature Granulocytes Absolute 0.11 #; Lymphocytes # 2.2 10*3/uL (1.4-4.0); Lymphocytes % 30.7 % (21.2-54.2); Mean Corpuscular Volume 91.4 FL (87-102); Mean Platelet Volume 10.8 FL (9.6-12.0); Monocytes # 0.6 10*3/uL (0.11-0.8); Monocytes % 8.6 % (1.7-12.7); Neutrophils % 53.3 % (38.7-73.9); Platelet Count 247 T/CUMM (130-400); Red Blood Count 3.25 MC/CUMM (3.8-5.5); Red Cell Distribution Width 12.3 % (9.3-17.3); White Blood Count 7.1 T/CUMM (4-12)
[2021-06-08 05:52] LABS: Alanine Aminotransferase 19 U/L (16-61); Albumin 1.4 G/DL (3.4-5.0); Alkaline Phosphatase 98 U/L (45-117); Aspartate Amino Transferase 13 U/L (0-37); Bilirubin,Total < 0.39 MG/DL (0.20-1.00); Blood Urea Nitrogen 22 MG/DL (7-18); Calcium 8.5 MG/DL (8.5-10.1); Carbon Dioxide 21 MMOL/L (21-32); Chloride 115 MMOL/L (98-107); Estimated Glom Filtration Rate 32 ML/MIN; Glucose 165 MG/DL (74-106); Osmolality,Calculated 289.1 MOS/KG (273-304); Potassium 4.1 MMOL/L (3.5-5.1); Sodium 142 MMOL/L (136-145); Total Protein 5.9 G/DL (6.4-8.2)
[2021-06-08] MEDS: INSULIN LISPRO 100 UNIT/ML SUBCUT SCH ×5 (08:20→20:16)
[2021-06-08] MEDS: NICOTINE 21 MG/24 HR PATCH TRANSDERM SCH (08:52)
[2021-06-08] MEDS: levETIRAcetam 250 MG TABLET PO SCH ×2 (08:55→19:30)
[2021-06-08] MEDS: CEFUROXIME 250 MG TABLET PO SCH ×2 (08:55→19:30)
[2021-06-08] MEDS: ASPIRIN CHEW 81 MG TABLET PO SCH (08:55)
[2021-06-08] MEDS: PANTOPRAZOLE 40 MG TABLET PO SCH (08:55)
[2021-06-08] MEDS: amLODIPine 10 MG TABLET PO SCH (08:56)
[2021-06-08] MEDS: ENOXAPARIN 30 MG/0.3 ML SYRINGE SUBCUT SCH (11:44)
[2021-06-08] MEDS: INSULIN GLARGINE 100 UNIT/ML SUBCUT SCH ×2 (19:30→20:16)
[2021-06-08] MEDS: SIMVASTATIN 40 MG TABLET PO SCH (19:30)
[2021-06-08] MEDS: SERTRALINE 25 MG TABLET PO SCH (19:30)
[2021-06-09] MEDS: INSULIN LISPRO 100 UNIT/ML SUBCUT SCH ×2 (09:35→12:56)
[2021-06-09] MEDS: levETIRAcetam 250 MG TABLET PO SCH (09:35)
[2021-06-09] MEDS: CEFUROXIME 250 MG TABLET PO SCH (09:36)
[2021-06-09] MEDS: ASPIRIN CHEW 81 MG TABLET PO SCH (09:36)
[2021-06-09] MEDS: PANTOPRAZOLE 40 MG TABLET PO SCH (09:36)
[2021-06-09] MEDS: amLODIPine 10 MG TABLET PO SCH (09:36)
[2021-06-09] MEDS: NICOTINE 21 MG/24 HR PATCH TRANSDERM SCH (09:37)
[2021-06-09] MEDS: ENOXAPARIN 30 MG/0.3 ML SYRINGE SUBCUT SCH (12:56)
[2021-06-09 15:39] VITALS: BP 168/96
== END 2021-06-09 14:44 | disposition home or self-care (01) | DRG 100 ==
LOC: N.ICU 09:22 → SUATTDRO 09:22 → N.TELES 06-09 01:58
PROVIDERS: ADMIT Internal Medicine; ATTEND Internal Medicine Geriatric Medicine

== ENCOUNTER 2021-08-24 13:11 | Inpatient (IN) ==
[2021-08-24] MEDS ORDERED: ONDANSETRON 4 MG/2 ML VIAL IV PRN (15:25)
[2021-08-24] MEDS ORDERED: hydrALAZINE 20 MG/1 ML VIAL ONE (15:28)
[2021-08-24] MEDS ORDERED: PANTOPRAZOLE 40 MG VIAL IV SCH (15:30)
[2021-08-24] MEDS: hydrALAZINE 20 MG/1 ML VIAL IV PRN (15:34)
[2021-08-24] MEDS: ENOXAPARIN 30 MG/0.3 ML SYRINGE SUBCUT SCH (16:00)
[2021-08-24 16:55] LABS: Basophils % 0.1 % (0.0-0.8); Hematocrit 34.6 VOL% (42.0-52.0); Hemoglobin 11.4 GM/DL (14.0-18.0); Immature Granulocytes % 0.4 %; Immature Granulocytes Absolute 0.04 #; Lymphocytes # 0.6 10*3/uL (1.4-4.0); Lymphocytes % 6.8 % (21.2-54.2); Mean Corpuscular HGB Conc 32.9 GM/DL (32-36); Mean Corpuscular Volume 86.7 FL (87-102); Mean Platelet Volume 10.2 FL (9.6-12.0); Monocytes # 0.3 10*3/uL (0.11-0.8); Monocytes % 3.3 % (1.7-12.7); Neutrophils % 89.4 % (38.7-73.9); Platelet Count 261 T/CUMM (130-400); Red Blood Count 3.99 MC/CUMM (3.8-5.5); Red Cell Distribution Width 12.7 % (9.3-17.3)
[2021-08-24] MEDS ORDERED: hydrALAZINE 20 MG/1 ML VIAL IV ONE (16:55)
[2021-08-24 17:18] LABS: Alanine Aminotransferase 53 U/L (16-61); Albumin 2.7 G/DL (3.4-5.0); Alkaline Phosphatase 168 U/L (45-117); Aspartate Amino Transferase 17 U/L (0-37); Bilirubin,Total < 0.39 MG/DL (0.20-1.00); Blood Urea Nitrogen 43 MG/DL (7-18); Calcium 9.6 MG/DL (8.5-10.1); Carbon Dioxide 21 MMOL/L (21-32); Chloride 112 MMOL/L (98-107); Glucose 417 MG/DL (74-106); Potassium 3.8 MMOL/L (3.5-5.1); Sodium 143 MMOL/L (136-145); Total Protein 7.5 G/DL (6.4-8.2)
[2021-08-24] MEDS ORDERED: GLUCAGON 1 MG VIAL IM PRN (17:28)
[2021-08-24] MEDS ORDERED: DEXTROSE 10% 250 ML BAG IV PRN (17:30)
[2021-08-24 17:32] LABS: Arterial Base Excess iSTAT -6 MMOL/L (-2.5-2.5); Arterial Bicarbonate iSTAT 18.3 MMOL/L (20-26); Arterial O2 Saturation iSTAT 98 % (95-100); Arterial PCO2 iSTAT 30 MM HG (35-48); Arterial PO2 iSTAT 96 MM HG (80-95); Arterial Total CO2 iSTAT 19 MMO/L (23-27); Arterial pH iSTAT 7.391 (7.35-7.45)
[2021-08-24] MEDS: SODIUM CHLORIDE 0.9% 1,000 ML IV SCH (17:56)
[2021-08-24] MEDS ORDERED: INSULIN LISPRO 100 UNIT/ML SUBCUT SCH (18:00)
[2021-08-24] MEDS ORDERED: METOPROLOL TARTRATE 5 MG/5 ML VIAL IV ONE (18:08)
[2021-08-24 18:58] LABS: Bilirubin,Urine Negative (Negative); Blood, Urine Trace mg/dL (Negative); Glucose,Urine (UA) >=1000 mg/dL (Negative); Ketones,Urine 15 mg/dL (Negative); Nitrite,Urine Negative (Negative); Protein,Urine Trace mg/dL (Negative); Urine Appearance Clear (Clear); Urine Color Yellow (Yellow); Urine Specific Gravity 1.015 (1.001-1.035); Urine Urobilinogen 0.2 eU/dL (<2.0); Urine pH 5.5 (4.5-8.0)
[2021-08-24 19:01] LABS: Bacteria,Urine Occasional /HPF (Few); Mucus,Urine Occasional /LPF (Occasional); RBC,Urine 4 /HPF (0-4)
[2021-08-24 19:48] LABS: Barbiturates Screen,Urine Negative (Negative); Benzodiazepines Screen,Urine Negative (Negative); Cannabinoid Screen,Urine Positive (Negative); Opiate Screen,Urine Negative (Negative); Phencyclidine Screen,Urine Negative (Negative)
[2021-08-24] MEDS: hydrALAZINE 25 MG TABLET PO SCH (21:02)
[2021-08-24] MEDS: levETIRAcetam 500 MG TABLET PO SCH (21:02)
[2021-08-24] MEDS: INSULIN LISPRO 100 UNIT/ML SUBCUT SCH (21:03)
[2021-08-25] MEDS: INSULIN LISPRO 100 UNIT/ML SUBCUT SCH ×8 (00:38→21:24)
[2021-08-25] MEDS: SODIUM CHLORIDE 0.9% 1,000 ML IV SCH ×2 (01:37→03:01)
[2021-08-25] MEDS: hydrALAZINE 20 MG/1 ML VIAL IV PRN (03:09)
[2021-08-25 05:03] LABS: Alanine Aminotransferase 41 U/L (16-61); Albumin 2.3 G/DL (3.4-5.0); Alkaline Phosphatase 127 U/L (45-117); Aspartate Amino Transferase 14 U/L (0-37); Bilirubin,Total < 0.39 MG/DL (0.20-1.00); Blood Urea Nitrogen 39 MG/DL (7-18); Calcium 9.2 MG/DL (8.5-10.1); Carbon Dioxide 21 MMOL/L (21-32); Chloride 116 MMOL/L (98-107); Glucose 105 MG/DL (74-106); Osmolality,Calculated 291.1 MOS/KG (273-304); Potassium 3.6 MMOL/L (3.5-5.1); Sodium 142 MMOL/L (136-145); Total Protein 6.4 G/DL (6.4-8.2)
[2021-08-25 06:45] LABS: Basophils # 0.1 10*3/uL (0.0-0.2); Basophils % 0.5 % (0.0-0.8); Eosinophils # 0.1 10*3/uL (0.0-0.87); Eosinophils % 0.8 % (0.00-10.9); Hematocrit 31.8 VOL% (42.0-52.0); Hemoglobin 10.7 GM/DL (14.0-18.0); Immature Granulocytes % 0.4 %; Immature Granulocytes Absolute 0.04 #; Lymphocytes # 2.5 10*3/uL (1.4-4.0); Lymphocytes % 22.9 % (21.2-54.2); Mean Corpuscular HGB Conc 33.6 GM/DL (32-36); Mean Corpuscular Volume 85.5 FL (87-102); Mean Platelet Volume 10.6 FL (9.6-12.0); Monocytes # 0.9 10*3/uL (0.11-0.8); Monocytes % 7.7 % (1.7-12.7); Neutrophils % 67.7 % (38.7-73.9); Platelet Count 255 T/CUMM (130-400); Red Blood Count 3.72 MC/CUMM (3.8-5.5); Red Cell Distribution Width 12.9 % (9.3-17.3)
[2021-08-25] MEDS ORDERED: DEXTROSE 50% 25 GM/50 ML VIAL IV PRN (08:12)
[2021-08-25] MEDS: hydrALAZINE 25 MG TABLET PO SCH ×2 (08:44→21:19)
[2021-08-25] MEDS: amLODIPine 10 MG TABLET PO SCH (08:44)
[2021-08-25] MEDS: levETIRAcetam 500 MG TABLET PO SCH ×2 (08:44→21:19)
[2021-08-25] MEDS: ASPIRIN CHEW 81 MG TABLET PO SCH (08:44)
[2021-08-25] MEDS: SODIUM CHLORIDE 0.45% 1,000 ML IV SCH ×2 (08:51→21:22)
[2021-08-25] MEDS ORDERED: PANTOPRAZOLE 40 MG TABLET PO SCH (09:00)
[2021-08-25] MEDS: ENOXAPARIN 30 MG/0.3 ML SYRINGE SUBCUT SCH (16:38)
[2021-08-25] MEDS: SIMVASTATIN 40 MG TABLET PO SCH (21:19)
[2021-08-26 05:44] LABS: Calcium 8.9 MG/DL (8.5-10.1); Osmolality,Calculated 300.3 MOS/KG (273-304); Potassium 3.8 MMOL/L (3.5-5.1)
[2021-08-26] MEDS: levETIRAcetam 500 MG TABLET PO SCH ×2 (09:57→20:51)
[2021-08-26] MEDS: ASPIRIN CHEW 81 MG TABLET PO SCH (09:57)
[2021-08-26] MEDS: amLODIPine 10 MG TABLET PO SCH (09:59)
[2021-08-26] MEDS: hydrALAZINE 25 MG TABLET PO SCH ×2 (09:59→20:52)
[2021-08-26] MEDS: INSULIN LISPRO 100 UNIT/ML SUBCUT SCH ×7 (10:00→20:54)
[2021-08-26] MEDS: SODIUM CHLORIDE 0.45% 1,000 ML IV SCH ×2 (10:08→11:16)
[2021-08-26] MEDS: ACETAMINOPHEN 325 MG TABLET PO PRN (15:59)
[2021-08-26] MEDS: SIMVASTATIN 40 MG TABLET PO SCH (20:51)
[2021-08-26] MEDS: ENOXAPARIN 30 MG/0.3 ML SYRINGE SUBCUT SCH (20:53)
[2021-08-26] MEDS: INSULIN GLARGINE 100 UNIT/ML SUBCUT SCH (20:54)
[2021-08-27] MEDS: PANTOPRAZOLE 40 MG TABLET PO SCH (05:40)
[2021-08-27] MEDS: SODIUM CHLORIDE 0.45% 1,000 ML IV SCH ×3 (05:40→18:06)
[2021-08-27 05:45] LABS: Basophils % 0.3 % (0.0-0.8); Eosinophils # 0.3 10*3/uL (0.0-0.87); Eosinophils % 4.2 % (0.00-10.9); Hematocrit 30.9 VOL% (42.0-52.0); Hemoglobin 10.2 GM/DL (14.0-18.0); Immature Granulocytes % 0.3 %; Immature Granulocytes Absolute 0.02 #; Lymphocytes # 1.9 10*3/uL (1.4-4.0); Lymphocytes % 30.7 % (21.2-54.2); Mean Corpuscular Volume 88.3 FL (87-102); Monocytes # 0.4 10*3/uL (0.11-0.8); Monocytes % 6.9 % (1.7-12.7); Neutrophils % 57.6 % (38.7-73.9); Platelet Count 210 T/CUMM (130-400); Red Cell Distribution Width 12.8 % (9.3-17.3); White Blood Count 6.2 T/CUMM (4-12)
[2021-08-27 06:18] LABS: Calcium 8.9 MG/DL (8.5-10.1); Osmolality,Calculated 296.5 MOS/KG (273-304); Potassium 3.8 MMOL/L (3.5-5.1)
[2021-08-27] MEDS: hydrALAZINE 25 MG TABLET PO SCH ×2 (08:42→21:59)
[2021-08-27] MEDS: levETIRAcetam 500 MG TABLET PO SCH ×2 (08:42→21:59)
[2021-08-27] MEDS: amLODIPine 10 MG TABLET PO SCH (08:42)
[2021-08-27] MEDS: ASPIRIN CHEW 81 MG TABLET PO SCH (08:44)
[2021-08-27] MEDS: INSULIN LISPRO 100 UNIT/ML SUBCUT SCH ×7 (08:45→22:00)
[2021-08-27] MEDS: ACETAMINOPHEN 325 MG TABLET PO PRN (10:38)
[2021-08-27] MEDS: SERTRALINE 25 MG TABLET PO SCH (17:17)
[2021-08-27] MEDS: SIMVASTATIN 40 MG TABLET PO SCH (21:59)
[2021-08-27] MEDS: ENOXAPARIN 30 MG/0.3 ML SYRINGE SUBCUT SCH (22:00)
[2021-08-27] MEDS: INSULIN GLARGINE 100 UNIT/ML SUBCUT SCH (22:00)
[2021-08-27] MEDS: SODIUM BICARBONATE 650 MG TABLET PO SCH (22:00)
[2021-08-28] MEDS: PANTOPRAZOLE 40 MG TABLET PO SCH (06:23)
[2021-08-28] MEDS: ASPIRIN CHEW 81 MG TABLET PO SCH (08:54)
[2021-08-28] MEDS: SODIUM BICARBONATE 650 MG TABLET PO SCH ×2 (08:54→21:00)
[2021-08-28] MEDS: hydrALAZINE 25 MG TABLET PO SCH ×3 (08:54→21:02)
[2021-08-28] MEDS: amLODIPine 10 MG TABLET PO SCH (08:55)
[2021-08-28] MEDS: levETIRAcetam 500 MG TABLET PO SCH ×2 (08:55→21:00)
[2021-08-28] MEDS: SERTRALINE 25 MG TABLET PO SCH (08:55)
[2021-08-28] MEDS: INSULIN LISPRO 100 UNIT/ML SUBCUT SCH ×7 (08:57→21:09)
[2021-08-28] MEDS: SODIUM CHLORIDE 0.45% 1,000 ML IV SCH ×2 (08:58→18:17)
[2021-08-28] MEDS: SIMVASTATIN 40 MG TABLET PO SCH (21:02)
[2021-08-28] MEDS: INSULIN GLARGINE 100 UNIT/ML SUBCUT SCH (21:09)
[2021-08-28] MEDS: ENOXAPARIN 30 MG/0.3 ML SYRINGE SUBCUT SCH (21:10)
[2021-08-29] MEDS: PANTOPRAZOLE 40 MG TABLET PO SCH (06:03)
[2021-08-29] MEDS: INSULIN LISPRO 100 UNIT/ML SUBCUT SCH ×2 (08:09→09:20)
[2021-08-29] MEDS: levETIRAcetam 500 MG TABLET PO SCH (09:16)
[2021-08-29] MEDS: ASPIRIN CHEW 81 MG TABLET PO SCH (09:16)
[2021-08-29] MEDS: hydrALAZINE 25 MG TABLET PO SCH (09:18)
[2021-08-29] MEDS: SERTRALINE 25 MG TABLET PO SCH (09:19)
[2021-08-29] MEDS: SODIUM BICARBONATE 650 MG TABLET PO SCH (09:19)
[2021-08-29] MEDS: amLODIPine 10 MG TABLET PO SCH (09:19)
[2021-08-29 12:07] VITALS: BP 151/92
== END 2021-08-29 12:15 | disposition home or self-care (01) | DRG 637 ==
LOC: N.ICU 14:46 → SUATTDRO 14:46 → N.5E 08-25 18:24
PROVIDERS: ADMIT Family Medicine; ATTEND Internal Medicine Geriatric Medicine